=== PATIENT | male | born 1945 | race Caucasian/White ===

== ENCOUNTER 2021-11-26 19:26 | Inpatient (IN) ==
--- NOTE | 2021-11-26 19:56 | Internal Med History&Physical ---
HPI History of Present Illness Patient information: Note initiated : 11/26/21 at 7:49 pm Service Date, if different from initiated Date: [] Patient: Naukl Andrew a 76 y/o M admitted on for Left Septic Knee. Chief Complaint: [] Chief complaint: Septic knee History of present illness: Mr. Andrew is a 76 year old male with a history of atrial fibrillation, CKD IIIb, COPD requiring 3 L/min who presented to the Emergency Department at [facility] for right knee swelling and drainage. The patient had a fall about a month prior to admission after which he developed a bullae on the left knee. The knee recently began to drain purulent fluid. At the ED the patient was felt to have a septic knee. The ED provider discussed the patient with Dr. De La Cruz who felt the patient should have a surgical intervention for what is probably septic arthritis of the patient's left knee. The patient was transferred to [facility] for further evaluation. Upon arrival to [facility] the patient was found to have a open wound over his left knee. Exam was notable for volume overload with bilateral extremity pitting edema, sacral pitting edema. The patient was in no distress upon arrival. He does appear to have some cognitive impairment and admits to having some memory issues due to "too many concussions ". We reviewed CODE STATUS in detail, the patient wishes to be full code. Review of systems Constitutional: no fever, fatigue, or weight loss Eyes: no vision changes or pain Cardiovascular: no chest pain, no palpitations Respiratory: no cough or dyspnea Gastrointestinal: no abdominal pain, no nausea, vomiting, or diarrhea Genitourinary: no dysuria or difficulty voiding Musculoskeletal: Positive for left knee drainage, bilateral lower extremity edema. Integumentary: Positive for left lower extremity redness Neurological: no focal weakness or numbness Psychiatric: no anxiety or depression Physical exam Head: Atraumatic, normal inspection. Eyes: normal appearance, no scleral icterus. Neck: full ROM Respiratory: no respiratory distress. Cardiovascular: normal rate and rhythm, S1, S2. GI/Abdominal: Obesely distended, soft, nontender, no guarding. Extremities: Bilateral lower extremity pitting edema, open wound over left knee, full range of motion, nontender. Neurological: CN II-XII intact, intact motor, intact sensation. Psychiatric: normal mood. Skin: warm, normal color A/P Narrative A/P Narrative: Assessment: 76 year old male with a history of atrial fibrillation, CKD IIIb, COPD requiring 2 L/min transferred from [facility] ED for further evaluation of possible septic arthritis of the left knee. #Possible septic arthritis of left knee #Concern for osteomyelitis of left knee/patella #Volume overload probably due to heart failure #COPD w/ chronic hypoxia (3 L/min) #Atrial fibrillation, not on anticoagulation #CKD IIIb #Type 2 diabetes mellitus, untreated #Macrocytic anemia #Obesity Plan -CBC, CBC, PT/INR, hemoglobin A1c, CRP/ESR, procalcitonin, proBNP, troponin for baseline, EKG, type and screen. -Blood cultures. -Hold off on antibiotics until surgical cultures obtained. -Oxygen supplementation. -Transthoracic echocardiogram -Lasix 40 mg IV BID. -Monitor renal function, electrolytes and volume status. -Urine protein creatinine ratio to evaluate for proteinuria. -Home medication reconciliation, resume essential meds. -Turner catheter. -telemetry monitor. -NPO at midnight. -Orthopedic surgery consult. -PT consult. -DVT ppx: per surgery -Code status: Full -Disposition: TBD Time Spent With Patient Time: Total time spent is greater than 50% in coordination of care (as documented) at patient's floor/unit and/or counseling patient:
[2021-11-26] MEDS ORDERED: ONDANSETRON 4 MG/2 ML VIAL IV PRN (21:39)
[2021-11-26] MEDS ORDERED: 0.9 % SODIUM CHLORIDE 250 ML IV SCH (22:15)
[2021-11-26] MEDS: DOCUSATE SODIUM 100 MG CAPSULE PO SCH (23:53)
[2021-11-26] MEDS: SENNOSIDES 1 TABLET PO SCH (23:53)
[2021-11-26] MEDS: FUROSEMIDE 40 MG/4 ML VIAL IV SCH (23:58)
[2021-11-26] MEDS: 0.9 % SODIUM CHLORIDE 10 ML SYRINGE IV SCH (23:58)
[2021-11-27 00:02] LABS: Hemoglobin 8.9 g/dL (13.7-17.5); Mean Cell Volume 102.9 fL (80.0-100.0); Mean Corpuscular HGB Conc 27.8 g/dL (31.0-36.0); Mean Platelet Volume 11.4 fL (7.4-10.4); Platelet Count 244 K/mcL (140-440); RBC 3.11 M/mcL (4.63-6.08); Red Cell Distribution Width 16.6 % (11.5-14.5); WBC 6.1 K/mcL (4.5-11.0)
[2021-11-27] MEDS ORDERED: FUROSEMIDE 40 MG/4 ML VIAL IV ONE (00:04)
[2021-11-27 00:15] LABS: ALT/SGPT < 5 U/L (<40); AST/SGOT 10 U/L (<40); Albumin 2.9 gm/dL (3.2-5.2); Albumin/Globulin Ratio 0.7 (1.0-2.3); Alkaline Phosphatase 81 U/L (39-117); Bilirubin,Direct 0.3 mg/dL (<0.3); Bilirubin,Total 0.8 mg/dL (0.1-1.0); Blood Urea Nitrogen 31 mg/dL (8-23); Calcium 9.1 mg/dL (8.6-10.4); Carbon Dioxide 22 mmol/L (22-30); Chloride 105 mmol/L (96-108); Globulin 4.4 gm/dL (2.2-3.7); Glomerular Filtration Rate 36; Glucose 94 mg/dL (70-105); Lactate Dehydrogenase 201 U/L (135-225); Phosphorous 3.4 mg/dL (2.5-4.5); Triglycerides 77 mg/dL (<150); Uric Acid 9.8 mg/dL (2.5-8.0)
[2021-11-27 00:23] LABS: Hemoglobin A1C 4.8 % Hgb (4.0-6.0)
[2021-11-27] MEDS: ACETAMINOPHEN 325 MG TABLET PO PRN (00:27)
[2021-11-27 00:32] LABS: Anisocytosis 1+ (None Seen); Eosinophils % (Manual) 2 % (0-7); Lymphocytes % 10 % (15-49); Macrocytosis 1+ (None Seen); Monocytes % (Manual) 13 % (1-12); Platelet Estimate NORMAL (Normal); RBC Morphology ABNORMAL (Normal); Segmented Neutrophils % 75 % (38-78)
[2021-11-27] MEDS ORDERED: ACETAMINOPHEN 325 MG TABLET PO ONE (00:33)
[2021-11-27 00:34] LABS: INR 1.2 (0.9-1.1); Prothrombin Time 15.3 sec (11.9-14.5)
[2021-11-27 00:34] LABS: Creatinine, Spot Urine 117.6 mg/dL (39.0-259.0); Pro:Crea Ratio 1.57 (<0.20)
[2021-11-27 00:41] LABS: C-Reactive Protein 0.7 mg/dL (0.03-0.80)
[2021-11-27] MEDS: 0.9 % SODIUM CHLORIDE 10 ML SYRINGE IV SCH ×3 (05:50→20:55)
[2021-11-27 06:39] LABS: Basophils # (Auto) 0.02 K/mcL (0.00-0.30); Basophils % (Auto) 0.3 % (0.0-2.0); Eosinophils # (Auto) 0.21 K/mcL (0.00-0.70); Eosinophils % (Auto) 3.4 % (0.0-7.0); Hematocrit 31.9 % (40.1-51.0); Hemoglobin 9.1 g/dL (13.7-17.5); Lymphocytes # (Auto) 0.35 K/mcL (1.50-4.80); Lymphocytes % (Auto) 5.7 % (15.5-49.0); Mean Cell Volume 101.9 fL (80.0-100.0); Mean Corpuscular HGB Conc 28.5 g/dL (31.0-36.0); Mean Platelet Volume 11.4 fL (7.4-10.4); Monocytes # (Auto) 0.75 K/mcL (0.10-0.90); Monocytes % (Auto) 12.3 % (1.0-12.0); Neutrophils % (Auto) 78.3 % (38.0-78.0); Platelet Count 229 K/mcL (140-440); RBC 3.13 M/mcL (4.63-6.08); Red Cell Distribution Width 16.6 % (11.5-14.5); WBC 6.1 K/mcL (4.5-11.0)
--- NOTE | 2021-11-27 06:55 | Orthopedic History & Physical ---
HPI History of Present Illness Patient information: Note initiated : 11/27/21 at 6:53 am Service Date, if different from initiated Date: [] Patient: Nakul Andrew a 76 y/o M admitted on 11/26/21 for Left Septic Knee. Chief Complaint: [left knee pain, infected open wound ] History of present illness: Mr. Andrew is a 76 year old male with a history of atrial fibrillation, CKD IIIb, COPD requiring 3 L/min who presented to the Emergency Department at [facility] for right knee swelling and drainage. The patient had a fall about a month prior to admission after which he developed a bullae on the left knee. The knee recently began to drain purulent fluid. At the ED the patient was felt to have a septic knee. The ED provider discussed the patient with Dr. De La Cruz who felt the patient should have a surgical intervention for what is probably septic arthritis of the patient's left knee. The patient was transferred to [facility] for further evaluation. Upon arrival to [facility] the patient was found to have a open wound over his left knee. Exam was notable for volume overload with bilateral extremity pitting edema, sacral pitting edema. The patient was in no distress upon arrival. He does appear to have some cognitive impairment and admits to having some memory issues due to "too many concussions ". We reviewed CODE STATUS in detail, the patient wishes to be full code. Review of systems Constitutional: no fever, fatigue, or weight loss Eyes: no vision changes or pain Cardiovascular: no chest pain, no palpitations Respiratory: no cough or dyspnea Gastrointestinal: no abdominal pain, no nausea, vomiting, or diarrhea Genitourinary: no dysuria or difficulty voiding Musculoskeletal: Positive for left knee drainage, bilateral lower extremity edema. Integumentary: Positive for left lower extremity redness Neurological: no focal weakness or numbness Psychiatric: no anxiety or depression Physical exam General: alert, oriented x3 cooperative answer questions appropriately. Head: Atraumatic, normal inspection. Eyes: normal appearance, no scleral icterus. Neck: full ROM non-tender Respiratory: no respiratory distress. Cardiovascular: normal rate and rhythm, S1, S2. GI/Abdominal: Obesely distended, soft, nontender, no guarding. Extremities: Bilateral lower extremity pitting edema, open wound at infrapatellar area with malodorous dark drainage, tender to palpation and with any ROM, extension mech intact. Neurological: CN II-XII intact, intact motor, intact sensation. Psychiatric: normal mood. Skin: warm, normal color Review of Systems All systems: reviewed and no additional remarkable complaints except as stated MEDS/ALLERGIES Home Medications and Allergies Home Medications Medication Instructions Recorded Confirmed Type albuterol sulfate 90 mcg/actuation 2 puff INHALATION QID PRN 11/27/21 11/27/21 History aerosol inhaler (ProAir HFA) aspirin 81 mg tablet,delayed 81 mg PO QDAY 11/27/21 11/27/21 History release colchicine 0.6 mg tablet 0.6 mg PO QID PRN 11/27/21 11/27/21 History tamsulosin 0.4 mg capsule (Flomax) 0.4 mg PO QDAY 11/27/21 11/27/21 History torsemide 10 mg tablet 10 mg PO QDAY 11/27/21 11/27/21 History Allergies Allergy/AdvReac Type Severity Reaction Status Date / Time bee venom protein (honey bee) Allergy Severe Anaphylaxis Verified 11/26/21 22:25 tramadol AdvReac Mild Vomiting Verified 11/27/21 07:04 [place] AdvReac Verified 11/27/21 07:03 Physical Examination Narrative Narrative: Narrative: Results Labs Result Diagrams: 11/27/21 05:31 11/26/21 22:15 Labs: Abnormal lab results 11/26/21 11/26/21 11/26/21 Range/Units 21:05 22:05 22:05 RBC (4.63-6.08) M/mcL Hgb (13.7-17.5) g/dL Hct (40.1-51.0) % MCV (80.0-100.0) fL MCHC (31.0-36.0) g/dL RDW (11.5-14.5) % MPV (7.4-10.4) fL Neut % (Auto) (38.0-78.0) % Lymph % (Auto) (15.5-49.0) % [place] % (Auto) (1.0-12.0) % Lymph # (Auto) (1.50-4.80) K/mcL Lymphocytes % (15-49) % Monocytes % (Manual) (1-12) % RBC Morphology (Normal) Anisocytosis (None Seen) Macrocytosis (None Seen) ESR 55 H (0-20) mm/hr PT (11.9-14.5) sec INR (0.9-1.1) BUN (8-23) mg/dL Creatinine (0.7-1.2) mg/dL Uric Acid (2.5-8.0) mg/dL Direct Bilirubin (<0.3) mg/dL NT-Pro-B Natriuret Pep 3882.0 H (<450.0) pg/mL Albumin (3.2-5.2) gm/dL Globulin (2.2-3.7) gm/dL Albumin/Globulin Ratio (1.0-2.3) Procalcitonin 0.15 H (<0.10) ng/mL U [place] Prot/Creat Ratio (<0.20) 11/26/21 11/26/21 11/26/21 Range/Units 22:15 22:15 22:15 RBC 3.11 L (4.63-6.08) M/mcL Hgb 8.9 L (13.7-17.5) g/dL Hct 32.0 L (40.1-51.0) % MCV 102.9 H (80.0-100.0) fL MCHC 27.8 L (31.0-36.0) g/dL RDW 16.6 H (11.5-14.5) % MPV 11.4 H (7.4-10.4) fL Neut % (Auto) (38.0-78.0) % Lymph % (Auto) (15.5-49.0) % [place] % (Auto) (1.0-12.0) % Lymph # (Auto) (1.50-4.80) K/mcL Lymphocytes % 10 L (15-49) % Monocytes % (Manual) 13 H (1-12) % RBC Morphology Abnormal A (Normal) Anisocytosis 1+ A (None Seen) Macrocytosis 1+ A (None Seen) ESR (0-20) mm/hr PT 15.3 H (11.9-14.5) sec INR 1.2 H (0.9-1.1) BUN 31 H (8-23) mg/dL Creatinine 1.8 H (0.7-1.2) mg/dL Uric Acid 9.8 H (2.5-8.0) mg/dL Direct Bilirubin 0.3 H (<0.3) mg/dL NT-Pro-B Natriuret Pep (<450.0) pg/mL Albumin 2.9 L (3.2-5.2) gm/dL Globulin 4.4 H (2.2-3.7) gm/dL Albumin/Globulin Ratio 0.7 L (1.0-2.3) Procalcitonin (<0.10) ng/mL U [place] Prot/Creat Ratio (<0.20) 11/26/21 11/27/21 Range/Units 23:00 05:31 RBC 3.13 L (4.63-6.08) M/mcL Hgb 9.1 L (13.7-17.5) g/dL Hct 31.9 L (40.1-51.0) % MCV 101.9 H (80.0-100.0) fL MCHC 28.5 L (31.0-36.0) g/dL RDW 16.6 H (11.5-14.5) % MPV 11.4 H (7.4-10.4) fL Neut % (Auto) 78.3 H (38.0-78.0) % Lymph % (Auto) 5.7 L (15.5-49.0) % [facility] % (Auto) 12.3 H (1.0-12.0) % Lymph # (Auto) 0.35 L (1.50-4.80) K/mcL Lymphocytes % (15-49) % Monocytes % (Manual) (1-12) % RBC Morphology (Normal) Anisocytosis (None Seen) Macrocytosis (None Seen) ESR (0-20) mm/hr PT (11.9-14.5) sec INR (0.9-1.1) BUN (8-23) mg/dL Creatinine (0.7-1.2) mg/dL Uric Acid (2.5-8.0) mg/dL Direct Bilirubin (<0.3) mg/dL NT-Pro-B Natriuret Pep (<450.0) pg/mL Albumin (3.2-5.2) gm/dL Globulin (2.2-3.7) gm/dL Albumin/Globulin Ratio (1.0-2.3) Procalcitonin (<0.10) ng/mL U [place] Prot/Creat Ratio 1.57 H (<0.20) H & H 11/26/21 11/27/21 Range/Units 22:15 05:31 Hgb 8.9 L 9.1 L (13.7-17.5) g/dL Hct 32.0 L 31.9 L (40.1-51.0) % Coagulation 11/26/21 Range/Units 22:15 INR 1.2 H (0.9-1.1) All other labs normal. A/P Narrative A/P Narrative: Assessment: 76 YO male with several comorbidities including COPD, CHF, CKD and with septic wound at the left knee which exhibits purulent drainage. Plan: options were presented to the patient including non-operative and surgical option. non-operative constituting watchful waiting and further antibiotic treatment carries the risks of overwhelming sepsis and . Surgical option of open surgical I+D of left knee infected wound with subsequent wound vac placement was also discussed. This is to take place semi emergently with Dr. De La Cruz surgeon and Javier NICHOLAS. At this time patient is interested in surgery. We will also order a STAT MRI of the lower extremity to eval for osteomyelitis of the left femur and tibia about the wound area as there is concern for bone and joint involvement. Plan is for: open surgical I+D of left knee infected wound with subsequent wound vac placement. Surgical risks were explained to the patient including but not limited to: pian , bleeding, infection, injury to adjacent structures, need for further surgery, stroke risk, cardiac complication including MN, pulmonary complications including embolism or pneumonia, anesthesia reactions and . Patient understands these risks and wishes to proceed with surgery. Time Spent With Patient Time: Total time spent is greater than 50% in coordination of care (as documented) at patient's floor/unit and/or counseling patient:
[2021-11-27] MEDS ORDERED: SCOPOLAMINE 1 PATCH PATCH TOPICAL PRN (07:04)
[2021-11-27] MEDS ORDERED: IPRATROPIUM/ALBUTEROL 3 ML AMPUL.NEB NEB PRN ×2 (07:04→13:55)
[2021-11-27 07:09] LABS: ALT/SGPT < 5 U/L (<40); AST/SGOT 12 U/L (<40); Albumin 2.9 gm/dL (3.2-5.2); Albumin/Globulin Ratio 0.7 (1.0-2.3); Alkaline Phosphatase 82 U/L (39-117); Bilirubin,Direct 0.3 mg/dL (<0.3); Bilirubin,Total 0.9 mg/dL (0.1-1.0); Blood Urea Nitrogen 30 mg/dL (8-23); Calcium 9.1 mg/dL (8.6-10.4); Carbon Dioxide 22 mmol/L (22-30); Chloride 107 mmol/L (96-108); Globulin 4.4 gm/dL (2.2-3.7); Glomerular Filtration Rate 36; Glucose 96 mg/dL (70-105); Lactate Dehydrogenase 234 U/L (135-225); Phosphorous 3.8 mg/dL (2.5-4.5); Triglycerides 92 mg/dL (<150); Uric Acid 9.8 mg/dL (2.5-8.0)
[2021-11-27] MEDS: FUROSEMIDE 40 MG/4 ML VIAL IV SCH ×2 (07:43→16:15)
--- NOTE | 2021-11-27 09:27 | XRay Report ---
CLINICAL INFORMATION: Infection COMPARISON: None. FINDINGS: Moderate degeneration in the patellofemoral and lateral tibiofemoral joint appreciated. Small suprapatellar effusion noted. No evidence of osteomyelitis or other focal osseous abnormality. Marked diffuse soft tissue swelling noted. IMPRESSION: Moderate effusion and also marked periarticular soft tissue swelling. This could indicate cellulitis and possibly septic arthritis Interpreted and Authenticated by: Georgi Kumari 11/27/21
--- NOTE | 2021-11-27 09:57 | Magnetic Resonance Report ---
CLINICAL INFORMATION: Knee pain and swelling evaluate for infection. COMPARISON: None. TECHNIQUE: Sagittal T1, sagittal and coronal proton density, sagittal and coronal T2 and axial proton density images were acquired. FINDINGS: Moderate patellofemoral and small tibiofemoral effusions appreciated. The medial meniscus is diminutive with irregular signal compatible with macerated chronic tear. It is displaced 5 mm: It bows and partially tears the deep MCL fibers. Loss of medial meniscus support has accelerated medial tibial femoral degeneration. The lateral meniscus is normal in size and signal. Anterior/ posterior cruciate ligament, lateral collateral ligament and extensor mechanism are all normal. A 3 cm region of increased signal in the anterior central tibial epiphysis most likely represents noninfectious edema. Evolving osteomyelitis is possible but less likely.. The marrow signal is otherwise normal. There are massive subcutaneous fluid collections in the periarticular regions of the knee. The largest is located medially: 3 x 14 cm. It communicates with a smaller 5 cm collection in the anterior pretibial region which also communicates with a 8 cm collection in the lateral region. Muscle fascial planes are normal. IMPRESSION: 1. Moderate patellofemoral and mild tibiofemoral effusion. This could potentially indicate septic arthritis. 2. 3 cm region of increased intramedullary signal in the anterior central tibial epiphysis. This is most likely noninfectious edema but developing osteomyelitis cannot be excluded. 3. Massive subcutaneous fluid collections in the periarticular region of the knee-most prominent medially. These could be infected. 4. Moderate medial tibiofemoral degeneration with a macerated chronic medial meniscal tear which has displaced and bows the deep MCL fibers. Interpreted and Authenticated by: Georgi Kumari 11/27/21
[2021-11-27] MEDS: DOCUSATE SODIUM 100 MG CAPSULE PO SCH ×2 (11:52→20:55)
[2021-11-27] MEDS ORDERED: fentaNYL 250 MCG/5 ML VIAL IV ONE (13:30)
[2021-11-27] MEDS ORDERED: PIPERACILLIN SODIUM/TAZOBACTAM 3.375 GM in DEXTROSE 5% IN WATER 50 ML IV SCH (13:30)
[2021-11-27] MEDS ORDERED: ONDANSETRON 4 MG/2 ML VIAL ONE (13:30)
[2021-11-27] MEDS ORDERED: LIDOCAINE HCL/PF 100 MG/5 ML SYRINGE IV ONE (13:30)
[2021-11-27] MEDS ORDERED: VANCOMYCIN 1,000 MG in 0.9 % SODIUM CHLORIDE 250 ML IV SCH (13:30)
[2021-11-27] MEDS ORDERED: DEXAMETHASONE 10 MG/ML VIAL ONE (13:30)
[2021-11-27] MEDS ORDERED: PROPOFOL 200 MG/20 ML VIAL IV ONE (13:30)
[2021-11-27] MEDS ORDERED: ACETAMINOPHEN 1,000 MG/100 ML BAG IV ONE (13:55)
[2021-11-27] MEDS ORDERED: diphenhydrAMINE 50 MG/ML VIAL IV PRN (13:55)
[2021-11-27] MEDS ORDERED: PROMETHAZINE 25 MG/ML VIAL IV PRN (13:55)
[2021-11-27] MEDS ORDERED: NALOXONE HCL 0.4 MG/ML VIAL IV PRN (13:55)
[2021-11-27] MEDS ORDERED: LACTATED RINGERS 250 ML IV PRN (13:55)
[2021-11-27] MEDS ORDERED: MEPERIDINE 25 MG/ML VIAL IV PRN (13:55)
[2021-11-27] MEDS ORDERED: ONDANSETRON 4 MG/2 ML VIAL IV PRN (13:55)
[2021-11-27] MEDS ORDERED: LACTATED RINGERS 1,000 ML IV SCH (14:00)
[2021-11-27] MEDS ORDERED: GENTAMICIN SULFATE 800 MG/20 ML VIAL IR ONE ×2 (14:09→14:30)
[2021-11-27] MEDS ORDERED: VANCOMYCIN 1 GM VIAL TOPICAL SCH (14:30)
[2021-11-27] MEDS ORDERED: VANCOMYCIN 1 GM VIAL TOPICAL ONE (14:30)
--- NOTE | 2021-11-27 14:42 | General Surgery Procedure Note ---
Date of procedure: Note initiated : 11/27/21 at 2:38 pm Service Date, if different from initiated Date: [] Pre-op diagnosis: left knee skin necrosis subcutaneous abscess and deep knee infection Post-op diagnosis: same Procedure: left knee irrigation and debridement, superficial and arthrotomy with irrigation and debridement, placement of wound vac Findings: skin necrosis, infected abscess, probable deep intraarticular infection Anesthesia: GETA Surgeon: Georgi De La Cruz Manager Package: Mikey Guzman Estimated blood loss: 250 Pathology: other (culture sq and joint) Condition: stable Disposition: PACU
--- NOTE | 2021-11-27 14:43 | Discharge Plan ---
DC Instructions-General Patient Instructions Dressing Care: May shower in 2 days Discharge Plan Patient/Caregiver Discharge Instructions Activity: as instructed Diet: Regular Diet Prescriptions: No Action aspirin [Adult Aspirin EC Low Strength] 81 mg Tablet,Delayed Release (Dr/Ec) 81 mg PO QDAY 0RF albuterol sulfate [ProAir HFA] 90 mcg/actuation Hfa Aerosol Inhaler 2 puff INHALATION QID PRN (Reason: Shortness Of Breath) 0RF tamsulosin [Flomax] 0.4 mg Capsule 0.4 mg PO QDAY 0RF torsemide 10 mg Tablet 10 mg PO QDAY 0RF colchicine 0.6 mg Tablet 0.6 mg PO QID PRN (Reason: Pain, Moderate) 0RF Follow Up Plan Follow up with: Georgi De La Cruz MD [Physician] - Patient Disposition: Home, Self-Care Rehab Potential: Good I certify that the patient requires SNF services: No Overall status at discharge: patient is progressing back to baseline Discharge Orders: Discharge Order (Routine); Ordered 11/28/21 Ordered By: Georgi De La Cruz Discharge Comment: cc: left knee infection
[2021-11-27] MEDS ORDERED: VANCOMYCIN PER PHARMACY IV SCH (14:44)
[2021-11-27] MEDS: fentaNYL 100 MCG/2 ML VIAL IV PRN ×2 (15:00→15:03)
--- NOTE | 2021-11-27 15:17 | Operative Note ---
DATE OF OPERATION: 11/27/2021 PREOPERATIVE DIAGNOSES: 1. Left knee skin necrosis with a large subcutaneous abscess. 2. Left knee probable deep infection in the joint. POSTOPERATIVE DIAGNOSES: 1. Left knee skin necrosis with a large subcutaneous abscess,. 2. Left knee probable deep infection in the joint. PROCEDURE PERFORMED: 1. Left knee irrigation and debridement of skin and subcutaneous tissue, deep abscess with placement of wound VAC. 2. Left knee aspiration. 3. Left knee arthrotomy with irrigation and debridement. SURGEON: Tiffani De La Cruz M.D. SENIOR DATABASE ENGINEER SURGEON: Javier Guzman PA-C. This providers expertise and technical skill were required throughout the case. The CRISTOPHER assisted with preoperative coordination, intraoperative retraction, wound closure, and dressing and splint application, as well as postoperative documentation and care coordination. ANESTHESIA: General. INTRAOPERATIVE FINDINGS: 1. Large area of skin necrosis approximately 3 x 4 cm with several other smaller areas of skin necrosis along the anterior medial knee 2. No direct opening into the knee joint, but after aspiration fluid looks cloudy, possible septic joint. 3. A large consolidated hematoma in the subcutaneous tissue with a foul smell. INDICATIONS: The patient is a 76-year-old male who fell several weeks ago sustaining a skin blister, which ulcerated and has progressively worsened to the above condition. We talked about different options and elected to proceed with surgical intervention. The risks and benefits were discussed with the patient in detail including, but not limited to, the risks of anesthesia, problems with the heart or lungs related to anesthesia, infection, compromise or injury to the nerves and blood vessels, deep venous thrombosis, pulmonary embolism, pneumonia, continued pain after surgery, worsening pain or symptoms after surgery, swelling, loss of motion, re-tear or failure of repair site, and need for repeat surgery. DESCRIPTION OF PROCEDURE: The patient was seen preoperatively, site was signed and questions were answered. He was then transferred from the operating room and general anesthesia was administered without complication. A tourniquet was placed on the left upper thigh, but was not inflated. He was prepped and draped in the usual fashion from the toes up to the tourniquet. The largest area of ulceration is about 3 x 4 cm in the superior medial knee. There was skin around it and I excised this as well as two smaller areas more proximal. There was a huge area of consolidated hematoma in the subcutaneous layer, which was removed. I used a curette to curette out all of the necrotic tissue throughout. This extended superiorly and medially. We came down and removed all of the necrotic tissue. I did not feel that it penetrated into the joint, but from the superolateral portal I did aspirate fluid, sent this to the lab for culture. Since it was cloudy, I did make an arthrotomy on the lateral side where there was no area of erythema and we opened the knee. We irrigated with 6 liters of saline under jet lavage, also placed IrriSept and some Vancomycin powder. This was closed with Stratafix, 2-0 Monocryl and isabel. Along the medial side, we again irrigated with 9 liters of antibiotic saline under jet lavage as well as IrriSept. I then placed vancomycin powder and placed a wound VAC in a standard condition. We placed four strips of sponge in this wound. He was then extubated and taken to PACU in stable condition. SPECIMENS: None. COMPLICATIONS: None. DRAINS: None. DISPOSITION: To PACU in stable condition. ELA:[email or web address] Job ID: [id number] Doc ID: [id number] Tiffani De La Cruz MD
--- NOTE | 2021-11-27 17:49 | Internal Med Progress Note ---
SUBJECTIVE Subjective Patient information: Note initiated : 11/27/21 at 5:43 pm Service Date, if different from initiated Date: [] Patient: Nakul Andrew a 76 y/o M admitted on 11/26/21 for Left Septic Knee. Chief Complaint: [] Interval history: Mr. Andrew is a 76 year old male with a history of atrial fibrillation, CKD IIIb, COPD requiring 3 L/min who presented to the Emergency Department at for right knee swelling and drainage. The patient had a fall about a month prior to admission after which he developed a bullae on the left knee. The knee recently began to drain purulent fluid. At the ED the patient was felt to have a septic knee. The ED provider discussed the patient with Dr. De La Cruz who felt the patient should have a surgical intervention for what is probably septic arthritis of the patient's left knee. The patient was transferred to [facility] for further evaluation. Upon arrival to [facility] the patient was found to have a open wound over his left knee. Exam was notable for volume overload with bilateral extremity pitting edema, sacral pitting edema. The patient was in no distress upon arrival. He does appear to have some cognitive impairment and admits to having some memory issues due to "too many concussions ". We reviewed CODE STATUS in detail, the patient wishes to be full code. 11/27 Underwent surgery today, noted to have left knee skin necrosis with a large subcutaneous abscess and probable deep infection of the left knee joint, the left knee was irrigated and debrided, surgical cultures obtained then the patient was started on broad-spectrum antibiotics. Renal function stable, diuresing with Lasix 40 mg IV twice daily. Discussed anticoagulation for atrial fibrillation, the patient will consider the risks versus benefits of anticoagulation. Physical exam Head: Atraumatic, normal inspection. Eyes: normal appearance, no scleral icterus. Neck: full ROM Respiratory: no respiratory distress. Cardiovascular: normal rate and rhythm, S1, S2. GI/Abdominal: Obesely distended, soft, nontender, no guarding. Extremities: Bilateral lower extremity pitting edema, open wound over left knee, full range of motion, nontender. Neurological: CN II-XII intact, intact motor, intact sensation. Psychiatric: normal mood. Skin: warm, normal color Constitutional Vitals: Vital Signs Temp Pulse Resp BP Pulse Ox 97.7 F 81 16 135/70 98 11/27/21 15:20 11/27/21 16:52 11/27/21 15:20 11/27/21 16:52 11/27/21 16:52 Period Temp Pulse Resp BP Sys/Murphy Pulse Ox Last 24 Hr 97.1 F-98.4 F 77-110 14-27 114-149/57-91 91-100 Intake and Output 11/27/21 11/27/21 11/27/21 05:59 13:59 21:59 Intake Total 600 1200 Output Total 950 2150 500 Balance -350 -2150 700 Weight 131.134 kg Patient Weight 11/28/21 05:59 Weight 131.134 kg Intake & Output: Intake & Output 11/27/21 11/27/21 11/27/21 05:59 13:59 21:59 Intake Total 600 1200 Output Total 950 2150 500 Balance -350 -2150 700 Weight 131.134 kg Intake: IV 400 Zosyn 3.375 gm In Dextrose 5% 50 in Water 50 ml @ 100 mls/hr IV Q6H [facility] Rx#:[id number] Vancomycin 1,000 mg In Sodium 250 Chloride 0.9% 250 ml @ 250 mls/ hr IV PREOP [facility] Rx#:[id number] Oral 600 IV - Manual Only 800 Output: Urine Catheter Amount 950 2150 500 Other: Meal Nourishment/Supplement Percent of Meal Consumed 100% Feeding Ability Independent Urine Appearance Clear Clear Clear Uretheral (Turner) Clear Clear Urine Color Straw Pale Bright Yellow Uretheral (Turner) Bright Yellow Urine Odor Normal Stool Size Large Stool Color Brown Stool Consistency Soft # Bowel Movements 1 OBJ DATA Labs CBC & Chem 7: 11/27/21 05:31 11/27/21 05:31 Labs: Abnormal Lab Results 11/27/21 11/27/21 11/26/21 05:31 05:31 23:00 RBC 3.13 L Hgb 9.1 L Hct 31.9 L MCV 101.9 H MCHC 28.5 L RDW 16.6 H MPV 11.4 H Neut % (Auto) 78.3 H Lymph % (Auto) 5.7 L [place] % (Auto) 12.3 H Lymph # (Auto) 0.35 L Lymphocytes % Monocytes % (Manual) RBC Morphology Anisocytosis Macrocytosis ESR PT INR BUN 30 H Creatinine 1.8 H Uric Acid 9.8 H Direct Bilirubin 0.3 H Lactate Dehydrogenase 234 H NT-Pro-B Natriuret Pep Albumin 2.9 L Globulin 4.4 H Albumin/Globulin Ratio 0.7 L Procalcitonin U [place] Prot/Creat Ratio 1.57 H 11/26/21 11/26/21 11/26/21 22:15 22:15 22:15 RBC 3.11 L Hgb 8.9 L Hct 32.0 L MCV 102.9 H MCHC 27.8 L RDW 16.6 H MPV 11.4 H Neut % (Auto) Lymph % (Auto) [place] % (Auto) Lymph # (Auto) Lymphocytes % 10 L Monocytes % (Manual) 13 H RBC Morphology Abnormal A Anisocytosis 1+ A Macrocytosis 1+ A ESR PT 15.3 H INR 1.2 H BUN 31 H Creatinine 1.8 H Uric Acid 9.8 H Direct Bilirubin 0.3 H Lactate Dehydrogenase NT-Pro-B Natriuret Pep Albumin 2.9 L Globulin 4.4 H Albumin/Globulin Ratio 0.7 L Procalcitonin U [place] Prot/Creat Ratio 11/26/21 11/26/21 11/26/21 22:05 22:05 21:05 RBC Hgb Hct MCV MCHC RDW MPV Neut % (Auto) Lymph % (Auto) [place] % (Auto) Lymph # (Auto) Lymphocytes % Monocytes % (Manual) RBC Morphology Anisocytosis Macrocytosis ESR 55 H PT INR BUN Creatinine Uric Acid Direct Bilirubin Lactate Dehydrogenase NT-Pro-B Natriuret Pep 3882.0 H Albumin Globulin Albumin/Globulin Ratio Procalcitonin 0.15 H U [place] Prot/Creat Ratio Meds: Medications Acetaminophen (Acetaminophen 325 Mg Tablet) 650 mg PO Q6HP PRN; Protocol PRN Reason: Per Pain Protocol/Fever > 101 Last Admin: 11/27/21 00:27 Dose: 650 mg Documented by: Hydrocodone Bitart/Acetaminophen (Hydrocodone/Apap 5/325mg Tablet) 1 tab PO Q4HP PRN; Protocol PRN Reason: Per Pain Protocol Docusate Sodium (Docusate Sodium 100 Mg Capsule) 100 mg PO BID [facility] Last Admin: 11/27/21 11:52 Dose: Not Given Documented by: Furosemide (Furosemide 40 Mg/4 Ml Vial) 40 mg IV BIDD [facility] Last Admin: 03/11/22 16:15 Dose: 40 mg Documented by: Vancomycin HCl 500 mg/ Sodium (Chloride) 100 mls @ 100 mls/hr IV ONCE ONE Stop: 11/27/21 21:59 Vancomycin HCl 1,500 mg/ (Sodium Chloride) 500 mls @ 333.3 mls/hr IV Q12H [facility] Piperacillin Sod/Tazobactam (Sod 3.375 gm/ Dextrose) 50 mls @ 100 mls/hr IV Q8H [facility]; Protocol Ondansetron HCl (Ondansetron 4 Mg/2 Ml Vial) 4 mg IV Q6HP PRN PRN Reason: Nausea And Vomiting Senna (Sennosides 1 Tablet) 2 tab PO HS [facility] Last Admin: 11/26/21 23:53 Dose: Not Given Documented by: Sodium Chloride (0.9 % Sodium Chloride 10 Ml Syringe) 10 ml IV Q8 [facility] Last Admin: 11/27/21 16:07 Dose: Not Given Documented by: Vancomycin HCl (Vancomycin Per Pharmacy) 1 order IV UD [facility]; Protocol A/P Narrative A/P Narrative: Assessment: 76 year old male with a history of atrial fibrillation, CKD IIIb, COPD requiring 2 L/min transferred from ED for further evaluation of possible septic arthritis of the left knee. #Possible septic arthritis of left knee #Large hematoma in left knee area status post I&D #Volume overload secondary to HFpEF #Pulmonary hypertension #COPD w/ chronic hypoxia (3 L/min) #Atrial fibrillation, not on anticoagulation #CKD IIIb #Proteinuria #Macrocytic anemia #Turner catheter #Obesity Plan -Vancomycin and Zosyn per surgery. -Follow surgical and blood cultures. -Oxygen supplementation. -Lasix 40 mg IV BID. -Monitor renal function, electrolytes and volume status. -Analgesics. -Resume home aspirin, Flomax, holding home torsemide for now. -cardiac monitor technician. -Orthopedic surgery following. -PT consult. -Low-sodium diet -Wound VAC management. -Remove Turner catheter after diuresis. -DVT ppx: per surgery -Code status: Full -Disposition: Probably SNF for rehab, wound care, IV antibiotics. Time Spent With Patient Time: Total time spent is greater than 50% in coordination of care (as documented) at patient's floor/unit and/or counseling patient: QUALITY VTE Deep Vein Thrombosis/Pulmonary Embolism Present on Admission: No
[2021-11-27] MEDS ORDERED: ALBUTEROL SULFATE 200 PUFF INHALER INH PRN (17:51)
[2021-11-27] MEDS: HYDROcodone/APAP 5/325MG TABLET PO PRN (19:46)
[2021-11-27] MEDS: SENNOSIDES 1 TABLET PO SCH (20:55)
[2021-11-27] MEDS ORDERED: VANCOMYCIN 500 MG in 0.9 % SODIUM CHLORIDE 100 ML IV ONE (21:00)
[2021-11-27] MEDS: PIPERACILLIN SODIUM/TAZOBACTAM 3.375 GM in DEXTROSE 5% IN WATER 50 ML IV SCH (22:28)
[2021-11-28] MEDS: 0.9 % SODIUM CHLORIDE 10 ML SYRINGE IV SCH ×3 (05:53→20:25)
[2021-11-28] MEDS: PIPERACILLIN SODIUM/TAZOBACTAM 3.375 GM in DEXTROSE 5% IN WATER 50 ML IV SCH (05:53)
[2021-11-28 07:04] LABS: Basophils # (Auto) 0.01 K/mcL (0.00-0.30); Basophils % (Auto) 0.1 % (0.0-2.0); Eosinophils # (Auto) 0 K/mcL (0.00-0.70); Eosinophils % (Auto) 0 % (0.0-7.0); Hemoglobin 7.5 g/dL (13.7-17.5); Lymphocytes # (Auto) 0.23 K/mcL (1.50-4.80); Lymphocytes % (Auto) 2.4 % (15.5-49.0); Mean Cell Volume 102.3 fL (80.0-100.0); Mean Corpuscular HGB Conc 27.8 g/dL (31.0-36.0); Mean Platelet Volume 11.4 fL (7.4-10.4); Monocytes # (Auto) 0.63 K/mcL (0.10-0.90); Monocytes % (Auto) 6.6 % (1.0-12.0); Neutrophils % (Auto) 90.9 % (38.0-78.0); Platelet Count 220 K/mcL (140-440); RBC 2.64 M/mcL (4.63-6.08); Red Cell Distribution Width 16.3 % (11.5-14.5); WBC 9.5 K/mcL (4.5-11.0)
[2021-11-28 07:30] LABS: ALT/SGPT < 5 U/L (<40); AST/SGOT 8 U/L (<40); Albumin 2.5 gm/dL (3.2-5.2); Albumin/Globulin Ratio 0.6 (1.0-2.3); Alkaline Phosphatase 65 U/L (39-117); Bilirubin,Direct 0.2 mg/dL (<0.3); Bilirubin,Total 0.5 mg/dL (0.1-1.0); Blood Urea Nitrogen 36 mg/dL (8-23); Calcium 8.6 mg/dL (8.6-10.4); Carbon Dioxide 22 mmol/L (22-30); Chloride 102 mmol/L (96-108); Globulin 3.9 gm/dL (2.2-3.7); Glomerular Filtration Rate 33; Glucose 166 mg/dL (70-105); Lactate Dehydrogenase 182 U/L (135-225); Triglycerides 60 mg/dL (<150); Uric Acid 10.3 mg/dL (2.5-8.0)
[2021-11-28] MEDS: TAMSULOSIN 0.4 MG CAPSULE PO SCH (08:02)
[2021-11-28] MEDS: ASPIRIN 81 MG TAB.CHEW PO SCH (08:02)
[2021-11-28] MEDS: DOCUSATE SODIUM 100 MG CAPSULE PO SCH ×2 (08:02→20:25)
[2021-11-28] MEDS: FUROSEMIDE 40 MG/4 ML VIAL IV SCH ×3 (08:02→20:24)
[2021-11-28] MEDS: VANCOMYCIN 1,500 MG in 0.9 % SODIUM CHLORIDE 500 ML IV SCH ×2 (08:54→20:25)
[2021-11-28] MEDS: CEFEPIME 2 GM VIAL IV SCH ×2 (09:29→20:24)
[2021-11-28] MEDS: metroNIDAZOLE 500 MG in PREMIX 1 BAG IV SCH ×3 (11:18→22:31)
[2021-11-28] MEDS: HYDROcodone/APAP 5/325MG TABLET PO PRN ×3 (11:25→21:55)
[2021-11-28] MEDS: ACETAMINOPHEN 325 MG TABLET PO PRN (13:20)
--- NOTE | 2021-11-28 14:58 | Internal Med Progress Note ---
SUBJECTIVE Subjective Patient information: Note initiated : 11/28/21 at 2:56 pm Service Date, if different from initiated Date: [] Patient: Nakul Andrew a 76 y/o M admitted on 11/26/21 for Left Septic Knee. Chief Complaint: [] Interval history: Mr. Andrew is a 76 year old male with a history of atrial fibrillation, CKD IIIb, COPD requiring 3 L/min who presented to the Emergency Department at [facility] for right knee swelling and drainage. The patient had a fall about a month prior to admission after which he developed a bullae on the left knee. The knee recently began to drain purulent fluid. At the ED the patient was felt to have a septic knee. The ED provider discussed the patient with Dr. De La Cruz who felt the patient should have a surgical intervention for what is probably septic arthritis of the patient's left knee. The patient was transferred to [facility] for further evaluation. Upon arrival to [facility] the patient was found to have a open wound over his left knee. Exam was notable for volume overload with bilateral extremity pitting edema, sacral pitting edema. The patient was in no distress upon arrival. He does appear to have some cognitive impairment and admits to having some memory issues due to "too many concussions ". We reviewed CODE STATUS in detail, the patient wishes to be full code. 11/27 Underwent surgery today, noted to have left knee skin necrosis with a large subcutaneous abscess and probable deep infection of the left knee joint, the left knee was irrigated and debrided, surgical cultures obtained then the patient was started on broad-spectrum antibiotics. Renal function stable, diuresing with Lasix 40 mg IV twice daily. Discussed anticoagulation for atrial fibrillation, the patient will consider the risks versus benefits of anticoagulation. TTE reported normal LVEF, dilated RV, pulmonary hypertension, moderate mitral valve regurgitation. 11/28 No events overnight, discontinued Zosyn and started Cefepime and Flagyl due to CKD and increased risk of kidney injury with vancomycin, continued IV vancomycin. Pending surgical cultures, hemoglobin this morning at 7.5 but stable when rechecked in the afternoon at 7.9. Vitamin B12 level was 402.9, will check Methylmalonic acid level. Increased lasix 40 mg IV BID to TID frequency. Physical exam Head: Atraumatic, normal inspection. Eyes: normal appearance, no scleral icterus. Neck: full ROM Respiratory: no respiratory distress. Cardiovascular: normal rate and rhythm, S1, S2. GI/Abdominal: Obesely distended, soft, nontender, no guarding. Extremities: Bilateral lower extremity pitting edema, left knee covered with clean bandage, left knee wound vac draining serosanginous fluid. Neurological: CN II-XII intact, intact motor, intact sensation. Psychiatric: normal mood. Skin: warm, normal color Constitutional Vitals: Vital Signs Temp Pulse Resp BP Pulse Ox 98.2 F 69 18 116/62 97 11/28/21 11:28 11/28/21 11:28 11/28/21 11:28 11/28/21 11:28 11/28/21 11:28 Period Temp Pulse Resp BP Sys/Murphy Pulse Ox Last 24 Hr 97.5 F-99.6 F 57-106 16-27 107-140/54-91 91-100 Intake and Output 11/28/21 11/28/21 11/28/21 05:59 13:59 21:59 Intake Total 1110 890 Output Total 1400 900 Balance -290 -10 Intake & Output: Intake & Output 11/28/21 11/28/21 11/28/21 05:59 13:59 21:59 Intake Total 1110 890 Output Total 1400 900 Balance -290 -10 Intake: IV 150 650 Zosyn 3.375 gm In Dextrose 5% 50 50 in Water 50 ml @ 100 mls/hr IV Q8H [facility] Rx#:[id number] Vancomycin 500 mg In Sodium 100 Chloride 0.9% 100 ml @ 100 mls/ hr IV ONCE ONE Rx#:[id number] Vancomycin 1,500 mg In Sodium 500 Chloride 0.9% 500 ml @ 333.3 mls/hr IV Q12H [facility] Rx#: [id number] Flagyl 500 mg In Premix 1 Bag @ 100 100 mls/hr IV Q8H [facility] Rx#: [id number] Oral 960 240 Output: Drainage 100 100 Left Knee 100 100 Urine Catheter Amount 1300 800 Other: Meal Lunch Percent of Meal Consumed 100% Feeding Ability Independent Urine Appearance Clear Clear Uretheral (Turner) Clear Clear Urine Color Bright Yellow Light Mary Uretheral (Turner) Straw Dark Mary Urine Odor Strong Normal OBJ DATA Labs CBC & Chem 7: 11/28/21 12:06 11/28/21 05:35 Labs: Abnormal Lab Results 11/28/21 11/28/21 11/28/21 12:06 05:35 05:35 RBC 2.64 L Hgb 7.9 L 7.5 L Hct 27.0 L MCV 102.3 H MCHC 27.8 L RDW 16.3 H MPV 11.4 H Neut % (Auto) 90.9 H Lymph % (Auto) 2.4 L [place] % (Auto) Lymph # (Auto) 0.23 L Lymphocytes % Monocytes % (Manual) Absolute Neutrophils 8.63 H RBC Morphology Anisocytosis Macrocytosis ESR PT INR BUN 36 H Creatinine 1.9 H Glucose 166 H Uric Acid 10.3 H Direct Bilirubin Lactate Dehydrogenase NT-Pro-B Natriuret Pep Albumin 2.5 L Globulin 3.9 H Albumin/Globulin Ratio 0.6 L Procalcitonin U [place] Prot/Creat Ratio 11/27/21 11/27/21 11/26/21 05:31 05:31 23:00 RBC 3.13 L Hgb 9.1 L Hct 31.9 L MCV 101.9 H MCHC 28.5 L RDW 16.6 H MPV 11.4 H Neut % (Auto) 78.3 H Lymph % (Auto) 5.7 L [place] % (Auto) 12.3 H Lymph # (Auto) 0.35 L Lymphocytes % Monocytes % (Manual) Absolute Neutrophils RBC Morphology Anisocytosis Macrocytosis ESR PT INR BUN 30 H Creatinine 1.8 H Glucose Uric Acid 9.8 H Direct Bilirubin 0.3 H Lactate Dehydrogenase 234 H NT-Pro-B Natriuret Pep Albumin 2.9 L Globulin 4.4 H Albumin/Globulin Ratio 0.7 L Procalcitonin U [place] Prot/Creat Ratio 1.57 H 11/26/21 11/26/21 11/26/21 22:15 22:15 22:15 RBC 3.11 L Hgb 8.9 L Hct 32.0 L MCV 102.9 H MCHC 27.8 L RDW 16.6 H MPV 11.4 H Neut % (Auto) Lymph % (Auto) [place] % (Auto) Lymph # (Auto) Lymphocytes % 10 L Monocytes % (Manual) 13 H Absolute Neutrophils RBC Morphology Abnormal A Anisocytosis 1+ A Macrocytosis 1+ A ESR PT 15.3 H INR 1.2 H BUN 31 H Creatinine 1.8 H Glucose Uric Acid 9.8 H Direct Bilirubin 0.3 H Lactate Dehydrogenase NT-Pro-B Natriuret Pep Albumin 2.9 L Globulin 4.4 H Albumin/Globulin Ratio 0.7 L Procalcitonin U [place] Prot/Creat Ratio 11/26/21 11/26/21 11/26/21 22:05 22:05 21:05 RBC Hgb Hct MCV MCHC RDW MPV Neut % (Auto) Lymph % (Auto) [place] % (Auto) Lymph # (Auto) Lymphocytes % Monocytes % (Manual) Absolute Neutrophils RBC Morphology Anisocytosis Macrocytosis ESR 55 H PT INR BUN Creatinine Glucose Uric Acid Direct Bilirubin Lactate Dehydrogenase NT-Pro-B Natriuret Pep 3882.0 H Albumin Globulin Albumin/Globulin Ratio Procalcitonin 0.15 H U [place] Prot/Creat Ratio Meds: Medications Acetaminophen (Acetaminophen 325 Mg Tablet) 650 mg PO Q6HP PRN; Protocol PRN Reason: Per Pain Protocol/Fever > 101 Last Admin: 11/28/21 13:20 Dose: 650 mg Documented by: Hydrocodone Bitart/Acetaminophen (Hydrocodone/Apap 5/325mg Tablet) 1 tab PO Q4HP PRN; Protocol PRN Reason: Per Pain Protocol Last Admin: 11/28/21 11:25 Dose: 1 tab Documented by: Albuterol Sulfate (Albuterol Sulfate 200 Puff Inhaler) 2 puff INH QIDP PRN PRN Reason: Shortness Of Breath Aspirin (Aspirin 81 Mg Tab.Chew) 81 mg PO DAILY [facility] Last Admin: 11/28/21 08:02 Dose: 81 mg Documented by: Cefepime HCl (Cefepime 2 Gm Vial) 2 gm IV Q12H [facility]; Protocol Last Admin: 11/28/21 09:29 Dose: 2 gm Documented by: Docusate Sodium (Docusate Sodium 100 Mg Capsule) 100 mg PO BID [facility] Last Admin: 11/28/21 08:02 Dose: 100 mg Documented by: Furosemide (Furosemide 40 Mg/4 Ml Vial) 40 mg IV BIDD [facility] Last Admin: 11/28/21 08:02 Dose: 40 mg Documented by: Vancomycin HCl 1,500 mg/ (Sodium Chloride) 500 mls @ 333.3 mls/hr IV Q12H [facility] Last Infusion: 11/28/21 11:18 Dose: Infused Documented by: Metronidazole 500 mg/ Premix 100 mls @ 100 mls/hr IV Q8H [facility]; Protocol Last Infusion: 11/28/21 12:28 Dose: Infused Documented by: Ondansetron HCl (Ondansetron 4 Mg/2 Ml Vial) 4 mg IV Q6HP PRN PRN Reason: Nausea And Vomiting Senna (Sennosides 1 Tablet) 2 tab PO HS [facility] Last Admin: 11/27/21 20:55 Dose: 2 tab Documented by: Sodium Chloride (0.9 % Sodium Chloride 10 Ml Syringe) 10 ml IV Q8 [facility] Last Admin: 11/28/21 13:18 Dose: 10 ml Documented by: Tamsulosin HCl (Tamsulosin 0.4 Mg Capsule) 0.4 mg PO QDAY [facility] Last Admin: 11/28/21 08:02 Dose: 0.4 mg Documented by: Vancomycin HCl (Vancomycin Per Pharmacy) 1 order IV UD [facility]; Protocol A/P Narrative A/P Narrative: Assessment: 76 year old male with a history of atrial fibrillation, CKD IIIb, COPD requiring 2 L/min transferred from [facility] ED for further evaluation of possible septic arthritis of the left knee. #Possible septic arthritis of left knee #Large hematoma in left knee area status post I&D #Volume overload secondary to HFpEF #Pulmonary hypertension #COPD w/ chronic hypoxia (3 L/min) #Atrial fibrillation, not on anticoagulation #CKD IIIb #Proteinuria #Macrocytic anemia #Turner catheter #Obesity Plan -Vancomycin, Cefepime, Flagyl for now. -Follow surgical and blood cultures. -Oxygen supplementation. -Lasix 40 mg IV TID. -Monitor renal function, electrolytes and volume status. -Analgesics. -Continue home aspirin, Flomax, holding home torsemide for now. -patient monitor. -Orthopedic surgery following. -PT consult. -Low-sodium diet -Wound VAC management. -Remove Turner catheter after diuresis. -DVT ppx: per surgery -Code status: Full -Disposition: Probably SNF for rehab, wound care, IV antibiotics. Time Spent With Patient Time: Total time spent is greater than 50% in coordination of care (as documented) at patient's floor/unit and/or counseling patient: QUALITY VTE Deep Vein Thrombosis/Pulmonary Embolism Present on Admission: No
[2021-11-28] MEDS: HEPARIN 5,000 UNIT/ML VIAL SQ SCH (20:24)
[2021-11-28] MEDS: SENNOSIDES 1 TABLET PO SCH (20:24)
[2021-11-29] MEDS: 0.9 % SODIUM CHLORIDE 10 ML SYRINGE IV SCH ×3 (05:26→21:29)
[2021-11-29] MEDS: metroNIDAZOLE 500 MG in PREMIX 1 BAG IV SCH ×3 (05:27→21:29)
[2021-11-29 06:38] LABS: Basophils # (Auto) 0.02 K/mcL (0.00-0.30); Basophils % (Auto) 0.2 % (0.0-2.0); Eosinophils # (Auto) 0.19 K/mcL (0.00-0.70); Eosinophils % (Auto) 2.3 % (0.0-7.0); Hematocrit 26.5 % (40.1-51.0); Hemoglobin 7.6 g/dL (13.7-17.5); Lymphocytes # (Auto) 0.52 K/mcL (1.50-4.80); Lymphocytes % (Auto) 6.3 % (15.5-49.0); Mean Cell Volume 101.1 fL (80.0-100.0); Mean Corpuscular HGB Conc 28.7 g/dL (31.0-36.0); Mean Platelet Volume 11.6 fL (7.4-10.4); Monocytes % (Auto) 12.1 % (1.0-12.0); Neutrophils % (Auto) 79.1 % (38.0-78.0); Platelet Count 202 K/mcL (140-440); RBC 2.62 M/mcL (4.63-6.08); Red Cell Distribution Width 16.1 % (11.5-14.5); WBC 8.2 K/mcL (4.5-11.0)
[2021-11-29 08:19] LABS: ALT/SGPT < 5 U/L (<40); AST/SGOT 10 U/L (<40); Albumin 2.5 gm/dL (3.2-5.2); Albumin/Globulin Ratio 0.6 (1.0-2.3); Alkaline Phosphatase 58 U/L (39-117); Bilirubin,Direct < 0.2 mg/dL (0-0.3); Bilirubin,Total 0.4 mg/dL (0.1-1.0); Blood Urea Nitrogen 38 mg/dL (8-23); Calcium 8.5 mg/dL (8.6-10.4); Carbon Dioxide 23 mmol/L (22-30); Chloride 102 mmol/L (96-108); Glomerular Filtration Rate 31; Glucose 102 mg/dL (70-105); Lactate Dehydrogenase 194 U/L (135-225); Triglycerides 44 mg/dL (<150)
[2021-11-29] MEDS: HEPARIN 5,000 UNIT/ML VIAL SQ SCH ×2 (08:23→21:08)
[2021-11-29] MEDS: DOCUSATE SODIUM 100 MG CAPSULE PO SCH ×2 (08:24→21:32)
[2021-11-29] MEDS: FUROSEMIDE 40 MG/4 ML VIAL IV SCH ×3 (08:24→21:08)
[2021-11-29] MEDS: CEFEPIME 2 GM VIAL IV SCH ×2 (08:24→21:28)
[2021-11-29] MEDS: ASPIRIN 81 MG TAB.CHEW PO SCH (08:24)
[2021-11-29] MEDS: TAMSULOSIN 0.4 MG CAPSULE PO SCH (08:24)
[2021-11-29] MEDS: HYDROcodone/APAP 5/325MG TABLET PO PRN ×3 (09:05→18:48)
[2021-11-29] MEDS: VANCOMYCIN 1,500 MG in 0.9 % SODIUM CHLORIDE 500 ML IV SCH ×2 (09:06→23:01)
--- NOTE | 2021-11-29 09:24 | EKG ---
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
[2021-11-29] MEDS: ACETAMINOPHEN 325 MG TABLET PO PRN (10:24)
--- NOTE | 2021-11-29 11:27 | Internal Med Progress Note ---
SUBJECTIVE Subjective Patient information: Note initiated : 11/29/21 at 11:21 am Service Date, if different from initiated Date: [] Patient: Nakul Andrew a 76 y/o M admitted on 11/26/21 for Left Septic Knee. Chief Complaint: [] Interval history: Mr. Andrew is a 76 year old male with a history of atrial fibrillation, CKD IIIb, COPD requiring 3 L/min who presented to the Emergency Department at [facility] for right knee swelling and drainage. The patient had a fall about a month prior to admission after which he developed a bullae on the left knee. The knee recently began to drain purulent fluid. At the ED the patient was felt to have a septic knee. The ED provider discussed the patient with Dr. De La Cruz who felt the patient should have a surgical intervention for what is probably septic arthritis of the patient's left knee. The patient was transferred to [facility] for further evaluation. Upon arrival to [facility] the patient was found to have a open wound over his left knee. Exam was notable for volume overload with bilateral extremity pitting edema, sacral pitting edema. The patient was in no distress upon arrival. He does appear to have some cognitive impairment and admits to having some memory issues due to "too many concussions ". We reviewed CODE STATUS in detail, the patient wishes to be full code. 11/27 Underwent surgery today, noted to have left knee skin necrosis with a large subcutaneous abscess and probable deep infection of the left knee joint, the left knee was irrigated and debrided, surgical cultures obtained then the patient was started on broad-spectrum antibiotics. Renal function stable, diuresing with Lasix 40 mg IV twice daily. Discussed anticoagulation for atrial fibrillation, the patient will consider the risks versus benefits of anticoagulation. TTE reported normal LVEF, dilated RV, pulmonary hypertension, moderate mitral valve regurgitation. 11/28 No events overnight, discontinued Zosyn and started Cefepime and Flagyl due to CKD and increased risk of kidney injury with vancomycin, continued IV vancomycin. Pending surgical cultures, hemoglobin this morning at 7.5 but stable when rechecked in the afternoon at 7.9. Vitamin B12 level was 402.9, will check Methylmalonic acid level. Increased lasix 40 mg IV BID to TID frequency. 11/29 No major events overnight, the patient is resting comfortably this morning. Diuresing well with IV Lasix, creatinine 2.0 but probably within the patient's baseline range. Surgical cultures pending and showing no growth to date, blood cultures x2 showing no growth to date. Urine culture growing gram-negative bacillus. Hemoglobin about the same at 7.6, wound VAC continues to drain serosanguineous fluid. The patient continues on broad-spectrum antibiotics. Physical exam Head: Atraumatic, normal inspection. Eyes: normal appearance, no scleral icterus. Neck: full ROM Respiratory: no respiratory distress. Cardiovascular: normal rate and rhythm, S1, S2. GI/Abdominal: Obesely distended, soft, nontender, no guarding. Extremities: Bilateral lower extremity pitting edema, left knee covered with clean bandage, left knee wound vac draining serosanginous fluid. Neurological: CN II-XII intact, intact motor, intact sensation. Psychiatric: normal mood. Skin: warm, normal color Constitutional Vitals: Vital Signs Temp Pulse Resp BP Pulse Ox 97.8 F 62 18 131/64 97 11/29/21 11:08 11/29/21 11:08 11/29/21 11:08 11/29/21 11:08 11/29/21 11:08 Period Temp Pulse Resp BP Sys/Murphy Pulse Ox Last 24 Hr 97.8 F-98.9 F 62-92 18-20 116-155/60-93 96-99 Intake and Output 11/28/21 11/29/21 11/29/21 20:59 05:59 13:59 Intake Total 840 Output Total 1150 Balance -310 Weight Intake & Output: Intake & Output 11/28/21 11/29/21 11/29/21 20:59 05:59 13:59 Intake Total 840 Output Total 1150 Balance -310 Weight Intake: IV 600 Vancomycin 1,500 mg In Sodium 500 Chloride 0.9% 500 ml @ 333.3 mls/hr IV Q12H JOCELYN Rx#: [id number] Flagyl 500 mg In Premix 1 Bag @ 100 100 mls/hr IV Q8H JOCELYN Rx#: [id number] Oral 240 Output: Drainage Left Knee Drainage Left Knee Urine Catheter Amount 1150 Other: Meal Breakfast Percent of Meal Consumed 25% Feeding Ability Independent Urine Appearance Clear Uretheral (Turner) Clear Urine Color Light Mary Uretheral (Turner) Light Mary Urine Odor Normal Uretheral (Turner) OBJ DATA Labs CBC & Chem 7: 11/29/21 05:23 11/29/21 05:23 Labs: Abnormal Lab Results 11/29/21 11/29/21 11/28/21 05:23 05:23 12:06 RBC 2.62 L Hgb 7.6 L 7.9 L Hct 26.5 L MCV 101.1 H MCHC 28.7 L RDW 16.1 H MPV 11.6 H Neut % (Auto) 79.1 H Lymph % (Auto) 6.3 L [place] % (Auto) 12.1 H Lymph # (Auto) 0.52 L [place] # (Auto) 1.00 H Lymphocytes % Monocytes % (Manual) Absolute Neutrophils RBC Morphology Anisocytosis Macrocytosis ESR PT INR BUN 38 H Creatinine 2.0 H Glucose Uric Acid 10.0 H Calcium 8.5 L Direct Bilirubin Lactate Dehydrogenase NT-Pro-B Natriuret Pep Albumin 2.5 L Globulin 4.0 H Albumin/Globulin Ratio 0.6 L Procalcitonin U [place] Prot/Creat Ratio 11/28/21 11/28/21 11/27/21 05:35 05:35 05:31 RBC 2.64 L Hgb 7.5 L Hct 27.0 L MCV 102.3 H MCHC 27.8 L RDW 16.3 H MPV 11.4 H Neut % (Auto) 90.9 H Lymph % (Auto) 2.4 L [place] % (Auto) Lymph # (Auto) 0.23 L [place] # (Auto) Lymphocytes % Monocytes % (Manual) Absolute Neutrophils 8.63 H RBC Morphology Anisocytosis Macrocytosis ESR PT INR BUN 36 H 30 H Creatinine 1.9 H 1.8 H Glucose 166 H Uric Acid 10.3 H 9.8 H Calcium Direct Bilirubin 0.3 H Lactate Dehydrogenase 234 H NT-Pro-B Natriuret Pep Albumin 2.5 L 2.9 L Globulin 3.9 H 4.4 H Albumin/Globulin Ratio 0.6 L 0.7 L Procalcitonin U [place] Prot/Creat Ratio 11/27/21 11/26/21 11/26/21 05:31 23:00 22:15 RBC 3.13 L 3.11 L Hgb 9.1 L 8.9 L Hct 31.9 L 32.0 L MCV 101.9 H 102.9 H MCHC 28.5 L 27.8 L RDW 16.6 H 16.6 H MPV 11.4 H 11.4 H Neut % (Auto) 78.3 H Lymph % (Auto) 5.7 L [place] % (Auto) 12.3 H Lymph # (Auto) 0.35 L [place] # (Auto) Lymphocytes % 10 L Monocytes % (Manual) 13 H Absolute Neutrophils RBC Morphology Abnormal A Anisocytosis 1+ A Macrocytosis 1+ A ESR PT INR BUN Creatinine Glucose Uric Acid Calcium Direct Bilirubin Lactate Dehydrogenase NT-Pro-B Natriuret Pep Albumin Globulin Albumin/Globulin Ratio Procalcitonin U [place] Prot/Creat Ratio 1.57 H 11/26/21 11/26/21 11/26/21 22:15 22:15 22:05 RBC Hgb Hct MCV MCHC RDW MPV Neut % (Auto) Lymph % (Auto) [place] % (Auto) Lymph # (Auto) [place] # (Auto) Lymphocytes % Monocytes % (Manual) Absolute Neutrophils RBC Morphology Anisocytosis Macrocytosis ESR PT 15.3 H INR 1.2 H BUN 31 H Creatinine 1.8 H Glucose Uric Acid 9.8 H Calcium Direct Bilirubin 0.3 H Lactate Dehydrogenase NT-Pro-B Natriuret Pep Albumin 2.9 L Globulin 4.4 H Albumin/Globulin Ratio 0.7 L Procalcitonin 0.15 H U [place] Prot/Creat Ratio 11/26/21 11/26/21 22:05 21:05 RBC Hgb Hct MCV MCHC RDW MPV Neut % (Auto) Lymph % (Auto) [place] % (Auto) Lymph # (Auto) [place] # (Auto) Lymphocytes % Monocytes % (Manual) Absolute Neutrophils RBC Morphology Anisocytosis Macrocytosis ESR 55 H PT INR BUN Creatinine Glucose Uric Acid Calcium Direct Bilirubin Lactate Dehydrogenase NT-Pro-B Natriuret Pep 3882.0 H Albumin Globulin Albumin/Globulin Ratio Procalcitonin U [place] Prot/Creat Ratio Meds: Medications Acetaminophen (Acetaminophen 325 Mg Tablet) 650 mg PO Q6HP PRN; Protocol PRN Reason: Per Pain Protocol/Fever > 101 Last Admin: 11/29/21 10:24 Dose: 650 mg Documented by: Hydrocodone Bitart/Acetaminophen (Hydrocodone/Apap 5/325mg Tablet) 1 tab PO Q4HP PRN; Protocol PRN Reason: Per Pain Protocol Last Admin: 11/29/21 09:05 Dose: 1 tab Documented by: Albuterol Sulfate (Albuterol Sulfate 200 Puff Inhaler) 2 puff INH QIDP PRN PRN Reason: Shortness Of Breath Aspirin (Aspirin 81 Mg Tab.Chew) 81 mg PO DAILY [facility] Last Admin: 11/29/21 08:24 Dose: 81 mg Documented by: Cefepime HCl (Cefepime 2 Gm Vial) 2 gm IV Q12H [facility]; Protocol Last Admin: 11/29/21 08:24 Dose: 2 gm Documented by: Docusate Sodium (Docusate Sodium 100 Mg Capsule) 100 mg PO BID [facility] Last Admin: 11/29/21 08:24 Dose: 100 mg Documented by: Furosemide (Furosemide 40 Mg/4 Ml Vial) 40 mg IV TID [facility] Last Admin: 11/29/21 08:24 Dose: 40 mg Documented by: Heparin Sodium (Porcine) (Heparin 5,000 Unit/Ml Vial) 5,000 unit SQ Q12 [facility] Last Admin: 11/29/21 08:23 Dose: 5,000 unit Documented by: Vancomycin HCl 1,500 mg/ (Sodium Chloride) 500 mls @ 333.3 mls/hr IV Q12H [facility] Last Infusion: 11/29/21 11:07 Dose: Infused Documented by: Metronidazole 500 mg/ Premix 100 mls @ 100 mls/hr IV Q8H [facility]; Protocol Last Infusion: 11/29/21 06:31 Dose: Infused Documented by: Ondansetron HCl (Ondansetron 4 Mg/2 Ml Vial) 4 mg IV Q6HP PRN PRN Reason: Nausea And Vomiting Senna (Sennosides 1 Tablet) 2 tab PO HS [facility] Last Admin: 11/28/21 20:24 Dose: 2 tab Documented by: Sodium Chloride (0.9 % Sodium Chloride 10 Ml Syringe) 10 ml IV Q8 [facility] Last Admin: 11/29/21 05:26 Dose: 10 ml Documented by: Tamsulosin HCl (Tamsulosin 0.4 Mg Capsule) 0.4 mg PO QDAY [facility] Last Admin: 11/29/21 08:24 Dose: 0.4 mg Documented by: Vancomycin HCl (Vancomycin Per Pharmacy) 1 order IV UD [facility]; Protocol A/P Narrative A/P Narrative: Assessment: 76 year old male with a history of atrial fibrillation, CKD IIIb, COPD requiring 2 L/min transferred from [facility] ED for further evaluation of possible septic arthritis of the left knee. #Possible septic arthritis of left knee #Large hematoma in left knee area status post I&D #Volume overload secondary to HFpEF #Pulmonary hypertension #COPD w/ chronic hypoxia (3 L/min) #Atrial fibrillation, not on anticoagulation #CKD IIIb #Proteinuria #Macrocytic anemia #Turner catheter #Obesity Plan -Vancomycin, Cefepime, Flagyl for now. -Follow surgical and blood cultures. -Oxygen supplementation. -Lasix 40 mg IV TID for now. -Monitor renal function, electrolytes and volume status. -Analgesics. -Continue home aspirin, Flomax. -Holding home torsemide for now. -Not a candidate for anticoagulation given hematoma left knee and wound VAC felicia ining bloody fluid. 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 -Orthopedic surgery following. -PT consult. -Low-sodium diet -Wound VAC management. -Remove Turner catheter after diuresis. -DVT ppx: heparin SQ -Code status: Full -Disposition: Probably SNF for rehab, wound care, possibly IV antibiotics. Time Spent With Patient Time: Total time spent is greater than 50% in coordination of care (as documented) at patient's floor/unit and/or counseling patient: QUALITY VTE Deep Vein Thrombosis/Pulmonary Embolism Present on Admission: No
[2021-11-29] MEDS ORDERED: ALBUMIN HUMAN 12.5 GM/50 ML BAG IV ONE (15:10)
--- NOTE | 2021-11-29 15:11 | Internal Med Progress Note ---
SUBJECTIVE Subjective Patient information: Note initiated : 11/29/21 at 2:59 pm Service Date, if different from initiated Date: [] Patient: Nakul Andrew a 76 y/o M admitted on 11/26/21 for Left Septic Knee. Chief Complaint: [] Interval history: Mr. Andrew is a 76 year old male with a history of atrial fibrillation, CKD IIIb, COPD requiring 3 L/min who presented to the Emergency Department at [facility] for right knee swelling and drainage. The patient had a fall about a month prior to admission after which he developed a bullae on the left knee. The knee recently began to drain purulent fluid. At the ED the patient was felt to have a septic knee. The ED provider discussed the patient with Dr. De aL Cruz who felt the patient should have a surgical intervention for what is probably septic arthritis of the patient's left knee. The patient was transferred to [facility] for further evaluation. Upon arrival to [facility] the patient was found to have a open wound over his left knee. Exam was notable for volume overload with bilateral extremity pitting edema, sacral pitting edema. The patient was in no distress upon arrival. He does appear to have some cognitive impairment and admits to having some memory issues due to "too many concussions ". We reviewed CODE STATUS in detail, the patient wishes to be full code. 11/27 Underwent surgery today, noted to have left knee skin necrosis with a large subcutaneous abscess and probable deep infection of the left knee joint, the left knee was irrigated and debrided, surgical cultures obtained then the patient was started on broad-spectrum antibiotics. Renal function stable, diuresing with Lasix 40 mg IV twice daily. Discussed anticoagulation for atrial fibrillation, the patient will consider the risks versus benefits of anticoagulation. TTE reported normal LVEF, dilated RV, pulmonary hypertension, moderate mitral valve regurgitation. 11/28 No events overnight, discontinued Zosyn and started Cefepime and Flagyl due to CKD and increased risk of kidney injury with vancomycin, continued IV vancomycin. Pending surgical cultures, hemoglobin this morning at 7.5 but stable when rechecked in the afternoon at 7.9. Vitamin B12 level was 402.9, will check Methylmalonic acid level. Increased lasix 40 mg IV BID to TID frequency. 11/29 No major events overnight, the patient is resting comfortably this morning. Diuresing well with IV Lasix, creatinine 2.0 but probably within the patient's baseline range. Surgical cultures pending and showing no growth to date, blood cultures x2 showing no growth to date. Urine culture growing gram-negative bacillus. Hemoglobin about the same at 7.6, wound VAC continues to drain serosanguineous fluid. The patient continues on broad-spectrum antibiotics. 11/30 Constitutional Vitals: Vital Signs Temp Pulse Resp BP Pulse Ox 97.8 F 62 18 131/64 97 11/29/21 11:08 11/29/21 11:08 11/29/21 11:08 11/29/21 11:08 11/29/21 11:08 Period Temp Pulse Resp BP Sys/Murphy Pulse Ox Last 24 Hr 97.8 F-98.9 F 62-92 18-20 120-155/60-93 96-99 Intake and Output 11/29/21 11/29/21 11/29/21 05:59 13:59 21:59 Intake Total 840 Output Total 1150 Balance -310 Intake & Output: Intake & Output 11/29/21 11/29/21 11/29/21 05:59 13:59 21:59 Intake Total 840 Output Total 1150 Balance -310 Intake: IV 600 Vancomycin 1,500 mg In Sodium 500 Chloride 0.9% 500 ml @ 333.3 mls/hr IV Q12H [facility]OC[facility] Rx#: [id number] Flagyl 500 mg In Premix 1 Bag @ 100 100 mls/hr IV Q8H [facility]OCELYN Rx#: [id number] Oral 240 Output: Drainage Left Knee Urine Catheter Amount 1150 Other: Meal Breakfast Lunch Percent of Meal Consumed 25% 100% Feeding Ability Independent Independent Urine Appearance Clear Uretheral (Turner) Clear Urine Color Light Mary Uretheral (Turner) Light Mary Urine Odor Normal Uretheral (Turner) Exam: General: Alert, Awake, No acute Distress, obese Eyes/N/T: EOMI, Head/Neck: neck supple, CV: RRR, No murmurs, Pulm: Clear b/l, no wheezing/rhonchi/rales Abd: soft, nontender, +BS x4 Ext: no clubbing/cyanosis, b/l LE edema Neuro: Alert, no focal deficits, moves all extremities, Skin: warm/dry OBJ DATA Labs CBC & Chem 7: 11/29/21 05:23 11/29/21 05:23 Labs: Abnormal Lab Results 11/29/21 11/29/21 11/28/21 05:23 05:23 12:06 RBC 2.62 L Hgb 7.6 L 7.9 L Hct 26.5 L MCV 101.1 H MCHC 28.7 L RDW 16.1 H MPV 11.6 H Neut % (Auto) 79.1 H Lymph % (Auto) 6.3 L [place] % (Auto) 12.1 H Lymph # (Auto) 0.52 L [place] # (Auto) 1.00 H Lymphocytes % Monocytes % (Manual) Absolute Neutrophils RBC Morphology Anisocytosis Macrocytosis ESR PT INR BUN 38 H Creatinine 2.0 H Glucose Uric Acid 10.0 H Calcium 8.5 L Direct Bilirubin Lactate Dehydrogenase NT-Pro-B Natriuret Pep Albumin 2.5 L Globulin 4.0 H Albumin/Globulin Ratio 0.6 L Procalcitonin U [place] Prot/Creat Ratio 11/28/21 11/28/21 11/27/21 05:35 05:35 05:31 RBC 2.64 L Hgb 7.5 L Hct 27.0 L MCV 102.3 H MCHC 27.8 L RDW 16.3 H MPV 11.4 H Neut % (Auto) 90.9 H Lymph % (Auto) 2.4 L [place] % (Auto) Lymph # (Auto) 0.23 L [place] # (Auto) Lymphocytes % Monocytes % (Manual) Absolute Neutrophils 8.63 H RBC Morphology Anisocytosis Macrocytosis ESR PT INR BUN 36 H 30 H Creatinine 1.9 H 1.8 H Glucose 166 H Uric Acid 10.3 H 9.8 H Calcium Direct Bilirubin 0.3 H Lactate Dehydrogenase 234 H NT-Pro-B Natriuret Pep Albumin 2.5 L 2.9 L Globulin 3.9 H 4.4 H Albumin/Globulin Ratio 0.6 L 0.7 L Procalcitonin U [place] Prot/Creat Ratio 11/27/21 11/26/21 11/26/21 05:31 23:00 22:15 RBC 3.13 L 3.11 L Hgb 9.1 L 8.9 L Hct 31.9 L 32.0 L MCV 101.9 H 102.9 H MCHC 28.5 L 27.8 L RDW 16.6 H 16.6 H MPV 11.4 H 11.4 H Neut % (Auto) 78.3 H Lymph % (Auto) 5.7 L [place] % (Auto) 12.3 H Lymph # (Auto) 0.35 L [place] # (Auto) Lymphocytes % 10 L Monocytes % (Manual) 13 H Absolute Neutrophils RBC Morphology Abnormal A Anisocytosis 1+ A Macrocytosis 1+ A ESR PT INR BUN Creatinine Glucose Uric Acid Calcium Direct Bilirubin Lactate Dehydrogenase NT-Pro-B Natriuret Pep Albumin Globulin Albumin/Globulin Ratio Procalcitonin U [place] Prot/Creat Ratio 1.57 H 11/26/21 11/26/21 11/26/21 22:15 22:15 22:05 RBC Hgb Hct MCV MCHC RDW MPV Neut % (Auto) Lymph % (Auto) [place] % (Auto) Lymph # (Auto) [place] # (Auto) Lymphocytes % Monocytes % (Manual) Absolute Neutrophils RBC Morphology Anisocytosis Macrocytosis ESR PT 15.3 H INR 1.2 H BUN 31 H Creatinine 1.8 H Glucose Uric Acid 9.8 H Calcium Direct Bilirubin 0.3 H Lactate Dehydrogenase NT-Pro-B Natriuret Pep Albumin 2.9 L Globulin 4.4 H Albumin/Globulin Ratio 0.7 L Procalcitonin 0.15 H U [place] Prot/Creat Ratio 11/26/21 11/26/21 22:05 21:05 RBC Hgb Hct MCV MCHC RDW MPV Neut % (Auto) Lymph % (Auto) [place] % (Auto) Lymph # (Auto) [place] # (Auto) Lymphocytes % Monocytes % (Manual) Absolute Neutrophils RBC Morphology Anisocytosis Macrocytosis ESR 55 H PT INR BUN Creatinine Glucose Uric Acid Calcium Direct Bilirubin Lactate Dehydrogenase NT-Pro-B Natriuret Pep 3882.0 H Albumin Globulin Albumin/Globulin Ratio Procalcitonin U [place] Prot/Creat Ratio Meds: Medications Acetaminophen (Acetaminophen 325 Mg Tablet) 650 mg PO Q6HP PRN; Protocol PRN Reason: Per Pain Protocol/Fever > 101 Last Admin: 11/29/21 10:24 Dose: 650 mg Documented by: Hydrocodone Bitart/Acetaminophen (Hydrocodone/Apap 5/325mg Tablet) 1 tab PO Q4HP PRN; Protocol PRN Reason: Per Pain Protocol Last Admin: 11/29/21 14:15 Dose: 1 tab Documented by: Albuterol Sulfate (Albuterol Sulfate 200 Puff Inhaler) 2 puff INH QIDP PRN PRN Reason: Shortness Of Breath Aspirin (Aspirin 81 Mg Tab.Chew) 81 mg PO DAILY [facility] Last Admin: 11/29/21 08:24 Dose: 81 mg Documented by: Cefepime HCl (Cefepime 2 Gm Vial) 2 gm IV Q12H [facility]; Protocol Last Admin: 11/29/21 08:24 Dose: 2 gm Documented by: Docusate Sodium (Docusate Sodium 100 Mg Capsule) 100 mg PO BID [facility] Last Admin: 11/29/21 08:24 Dose: 100 mg Documented by: Furosemide (Furosemide 40 Mg/4 Ml Vial) 40 mg IV TID [facility] Last Admin: 11/29/21 14:10 Dose: 40 mg Documented by: Heparin Sodium (Porcine) (Heparin 5,000 Unit/Ml Vial) 5,000 unit SQ Q12 [facility] Last Admin: 11/29/21 08:23 Dose: 5,000 unit Documented by: Vancomycin HCl 1,500 mg/ (Sodium Chloride) 500 mls @ 333.3 mls/hr IV Q12H [facility] Last Infusion: 11/29/21 11:07 Dose: Infused Documented by: Metronidazole 500 mg/ Premix 100 mls @ 100 mls/hr IV Q8H [facility]; Protocol Last Admin: 11/29/21 14:09 Dose: 100 mls/hr Documented by: Ondansetron HCl (Ondansetron 4 Mg/2 Ml Vial) 4 mg IV Q6HP PRN PRN Reason: Nausea And Vomiting Senna (Sennosides 1 Tablet) 2 tab PO HS [facility] Last Admin: 11/28/21 20:24 Dose: 2 tab Documented by: Sodium Chloride (0.9 % Sodium Chloride 10 Ml Syringe) 10 ml IV Q8 [facility] Last Admin: 11/29/21 14:15 Dose: 10 ml Documented by: Tamsulosin HCl (Tamsulosin 0.4 Mg Capsule) 0.4 mg PO QDAY [facility] Last Admin: 11/29/21 08:24 Dose: 0.4 mg Documented by: Vancomycin HCl (Vancomycin Per Pharmacy) 1 order IV UD [facility]; Protocol A/P Narrative A/P Narrative: A: #Likely septic arthritis & SQ Hematoma/Abscess of left knee: s/p I&D & washout (11/27) -No growth #Volume overload: 2/2 HFpEF #acute on chronic HFPEF & Pulmonary hypertension: #COPD w/chronic hypoxia (3 L/min): #h/o Atrial fibrillation, not on anticoagulation & still awaiting pt decision #CKD IIIb: #Macrocytic anemia, acute on chronic: #Obesity: Plan -Orthopedic surgery following -Vancomycin/Cefepime/Flagyl for now. MRSA screen neg. IV abx for at least 2-wks followed by 1-2wks oral therapy, will defer to orthopedics. Will treat with Rocephin IV 2gm once daily for 2-weeks and let ortho determine treatment from that point. -Lasix 40 mg IV TID for now; Monitor renal function, electrolytes and volume status. -Holding home torsemide for now. -Not a candidate for anticoagulation given hematoma left knee and wound VAC draining bloody fluid -cont home ASA -PT consult -Wound VAC management. -Oxygen supplementation. -Remove Turner catheter after diuresis. -Disposition: Probably SNF for rehab, wound care, possibly IV antibiotics. 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
--- NOTE | 2021-11-29 15:38 | Discharge Summary ---
Discharge Provider Provider Patient information: Note initiated : 11/29/21 at 3:35 pm Service Date, if different from initiated Date: [] Patient: Nakul Andrew 76 y/o M admitted on 11/26/21 for Left Septic Knee. Chief Complaint: [] Date of admission: 11/26/21 21:28 Discharge date: 12/01/21 Primary care physician: Georgi Waller PA-C Consults: 11/26/21 21:39 Consult to Physician [CONS] Routine Comment: Consulting Provider: Georgi De La Cruz Reason For Exam: Physician to Consult Discharge Meds Discharge Medications Home Medications albuterol sulfate 90 mcg/actuation aerosol inhaler (ProAir HFA) 2 puff INHALATION QID PRN 11/27/21 [History Confirmed 11/27/21 Last Taken Unknown] aspirin 81 mg tablet,delayed release 81 mg PO QDAY 11/27/21 [History Confirmed 11/27/21 Last Taken Unknown] colchicine 0.6 mg tablet 0.6 mg PO QID PRN 11/27/21 [History Confirmed 11/27/21 Last Taken Unknown] tamsulosin 0.4 mg capsule (Flomax) 0.4 mg PO QDAY 11/27/21 [History Confirmed 11/27/21 Last Taken Unknown] vancomycin 1.25 gram intravenous solution 1 g IV Q12H #1 ea 11/30/21 [Rx Last Taken Unknown] ceftazidime 1 gram intravenous solution 1 g IV Q12H #10 ea 12/01/21 [Rx Last Taken Unknown] torsemide 10 mg tablet 20 mg PO QDAY #30 tab 12/01/21 [Rx Last Taken Unknown] COURSE Hospital Course Hospital course: Interval history: Mr. Andrew is a 76 year old male with a history of atrial fibrillation, CKD IIIb, COPD requiring 3 L/min who presented to the Emergency Department at [facility] for right knee swelling and drainage. The patient had a fall about a month prior to admission after which he developed a bullae on the left knee. The knee recently began to drain purulent fluid. At the ED the patient was felt to have a septic knee. The ED provider discussed the patient with Dr. De La Cruz who felt the patient should have a surgical intervention for what is probably septic arthritis of the patient's left knee. The patient was transferred to [facility] for further evaluation. Upon arrival to [facility] the patient was found to have a open wound over his left knee. Exam was notable for volume overload with bilateral extremity pitting edema, sacral pitting edema. The patient was in no distress upon arrival. He does appear to have some cognitive impairment and admits to having some memory issues due to "too many concussions ". We reviewed CODE STATUS in detail, the patient wishes to be full code. 11/27 Underwent surgery today, noted to have left knee skin necrosis with a large subcutaneous abscess and probable deep infection of the left knee joint, the left knee was irrigated and debrided, surgical cultures obtained then the patient was started on broad-spectrum antibiotics. Renal function stable, diuresing with Lasix 40 mg IV twice daily. Discussed anticoagulation for atrial fibrillation, the patient will consider the risks versus benefits of anticoagulation. TTE reported normal LVEF, dilated RV, pulmonary hypertension, moderate mitral valve regurgitation. 11/28 No events overnight, discontinued Zosyn and started Cefepime and Flagyl due to CKD and increased risk of kidney injury with vancomycin, continued IV vancomycin. Pending surgical cultures, hemoglobin this morning at 7.5 but stable when rechecked in the afternoon at 7.9. Vitamin B12 level was 402.9, will check Methylmalonic acid level. Increased lasix 40 mg IV BID to TID frequency. 11/29 No major events overnight, the patient is resting comfortably this morning. Diuresing well with IV Lasix, creatinine 2.0 but probably within the patient's baseline range. Surgical cultures pending and showing no growth to date, blood cultures x2 showing no growth to date. Urine culture growing gram-negative bacillus. Hemoglobin about the same at 7.6, wound VAC continues to drain serosanguineous fluid. The patient continues on broad-spectrum antibiotics. 11/30 No overnight event or new complaints. Surgical cultures negative thus far. Ur ine cultures gram-negative bacillus. Hemoglobin stable. Renal function stable. 12/01 No changes overnight. Stable for discharge. A: #Likely septic arthritis & SQ Hematoma/Abscess of left knee: s/p I&D & washout (11/27) -No growth on Cx and gram stain neg #Volume overload: 2/2 HFpEF #acute on chronic HFPEF & Pulmonary hypertension: #COPD w/chronic hypoxia (3 L/min): #h/o Atrial fibrillation, not on anticoagulation & still awaiting pt decision #CKD IIIb: #Macrocytic anemia, acute on chronic: #Obesity: #UTI(pseudomonas): resistant to cipro Plan -Orthopedic surgery following -MRSA screen neg. IV abx for at least 2-wks followed by 1-2wks oral therapy, will defer to orthopedics once 2-week IV course completed. Will treat with Vanco IV. Treat pseudomonas UTI with IV ceftazidime -pt to f/u with PCP/Cardio regarding anticoagulation discussion once above resolved -Wound VAC management. -increase home torsemide from 10 to 20 daily Discharge diagnosis: Septic left knee and subcutaneous abscess hematoma volume overload acute on Secondary discharge diagnosis: Acute on chronic heart failure COPD A. fib CKD anemia obesity Time Spent with Patient Time attestation: Total time spent providing and/or coordinating discharge services: Time spent: Greater than 30 minutes EXAM Constitutional Vitals: Temp Pulse Resp BP Pulse Ox 97.2 F 63 16 129/62 94 11/29/21 15:11 11/29/21 15:11 11/29/21 15:11 11/29/21 15:11 11/29/21 15:11 Discharge Data Data Completed and Pending Labs on day of discharge: Labs from last 24 hours 11/29/21 11/29/21 11/28/21 05:23 05:23 12:06 WBC 8.2 RBC 2.62 L Hgb 7.6 L Hct 26.5 L MCV 101.1 H MCH 29.0 MCHC 28.7 L RDW 16.1 H Plt Count 202 MPV 11.6 H Neut % (Auto) 79.1 H Lymph % (Auto) 6.3 L Catron % (Auto) 12.1 H Eos % (Auto) 2.3 Baso % (Auto) 0.2 Lymph # (Auto) 0.52 L Catron # (Auto) 1.00 H Eos # (Auto) 0.19 Baso # (Auto) 0.02 Absolute Neutrophils 6.51 Sodium 137 Potassium 3.9 Chloride 102 Carbon Dioxide 23 Anion Gap 12.0 BUN 38 H Creatinine 2.0 H GFR Calculation 31 Glucose 102 Uric Acid 10.0 H Calcium 8.5 L Phosphorus 4.0 Magnesium 1.8 Total Bilirubin 0.4 Direct Bilirubin < 0.2 GGT 11 AST 10 ALT < 5 Alkaline Phosphatase 58 Lactate Dehydrogenase 194 Total Protein 6.5 Albumin 2.5 L Globulin 4.0 H Albumin/Globulin Ratio 0.6 L Triglycerides 44 Methylmalonic Acid Pending Preliminary micro results at discharge 11/25/21 23:00 Urine Culture - Preliminary Urine - Catheterized Gram negative bacillus 11/26/21 22:15 Blood Culture - Preliminary Blood 11/26/21 22:05 Blood Culture - Preliminary Blood Discharge Plan Patient/Caregiver Discharge Instructions Activity: increase activity as tolerated and as instructed Diet: Regular Diet Instructions: Basic Carbohydrate Counting (GEN), Metabolic Acidosis (GEN) Activity Restrictions/Additional Instructions: Follow-up with PCP in 3 to 7 days. f/u with PCP/Cardio regarding anticoagulation for afib Discharged on 2-weeks of IV Vancomycin. Will defer further abx management to Orthopedics - either continue IV vancomycin for 1-2 more weeks or change to PO Cephalexin 500mg qid for 1-2 more weeks. Prescriptions: New vancomycin 1.25 gram recon soln 1 g IV Q12H Qty: 1 0RF ceftazidime 1 gram recon soln 1 g IV Q12H Qty: 10 0RF Continued aspirin 81 mg Tablet,Delayed Release (Dr/Ec) 81 mg PO QDAY 0RF albuterol sulfate [ProAir HFA] 90 mcg/actuation Hfa Aerosol Inhaler 2 puff INHALATION QID PRN (Reason: Shortness Of Breath) 0RF tamsulosin [Flomax] 0.4 mg Capsule 0.4 mg PO QDAY 0RF colchicine 0.6 mg Tablet 0.6 mg PO QID PRN (Reason: Pain, Moderate) 0RF Changed torsemide 10 mg Tablet 20 mg PO QDAY Qty: 30 0RF Follow Up Plan Follow up with: Georgi De La Cruz MD [Physician] - (Discharged on 2-weeks of IV Vancomycin. Will defer further abx management to Orthopedics - either continue IV vancomycin for 1-2 more weeks or change to PO Cephalexin 500mg qid for 1-2 more weeks.) Patient Disposition: Xfer SNF Prognosis: Fair Rehab Potential: Fair I certify that the patient requires SNF services: Yes Overall status at discharge: patient is progressing back to baseline Discharge Orders: Discharge Order (Routine); Ordered 12/01/21 Ordered By: Mikhail Hooper Discharge Comment: cc: left knee infection QUALITY VTE Deep Vein Thrombosis/Pulmonary Embolism Present on Admission: No
[2021-11-29] MEDS: SENNOSIDES 1 TABLET PO SCH (21:08)
[2021-11-30] MEDS: HYDROcodone/APAP 5/325MG TABLET PO PRN ×3 (01:13→12:45)
[2021-11-30] MEDS: ACETAMINOPHEN 325 MG TABLET PO PRN (03:13)
[2021-11-30] MEDS: metroNIDAZOLE 500 MG in PREMIX 1 BAG IV SCH ×3 (05:24→22:42)
[2021-11-30] MEDS: 0.9 % SODIUM CHLORIDE 10 ML SYRINGE IV SCH ×5 (05:24→22:42)
[2021-11-30 06:18] LABS: Hematocrit 25.4 % (40.1-51.0); Hemoglobin 7.4 g/dL (13.7-17.5)
[2021-11-30 06:37] LABS: Blood Urea Nitrogen 42 mg/dL (8-23); Calcium 8.8 mg/dL (8.6-10.4); Carbon Dioxide 25 mmol/L (22-30); Chloride 98 mmol/L (96-108); Glomerular Filtration Rate 38; Glucose 100 mg/dL (70-105)
[2021-11-30] MEDS ORDERED: LACTULOSE 20 GM/30 ML ORAL.SOL PO ONE (08:05)
[2021-11-30] MEDS ORDERED: BISACODYL 5 MG TABLET PO ONE (08:05)
--- NOTE | 2021-11-30 08:07 | Internal Med Progress Note ---
SUBJECTIVE Subjective Patient information: Note initiated : 11/30/21 at 8:03 am Service Date, if different from initiated Date: [] Patient: Nakul Andrew a 76 y/o M admitted on 11/26/21 for Left Septic Knee. Chief Complaint: [] Interval history: Mr. Andrew is a 76 year old male with a history of atrial fibrillation, CKD IIIb, COPD requiring 3 L/min who presented to the Emergency Department at [facility] for right knee swelling and drainage. The patient had a fall about a month prior to admission after which he developed a bullae on the left knee. The knee recently began to drain purulent fluid. At the ED the patient was felt to have a septic knee. The ED provider discussed the patient with Dr. De La Cruz who felt the patient should have a surgical intervention for what is probably septic arthritis of the patient's left knee. The patient was transferred to [facility] for further evaluation. Upon arrival to [facility] the patient was found to have a open wound over his left knee. Exam was notable for volume overload with bilateral extremity pitting edema, sacral pitting edema. The patient was in no distress upon arrival. He does appear to have some cognitive impairment and admits to having some memory issues due to "too many concussions ". We reviewed CODE STATUS in detail, the patient wishes to be full code. 11/27 Underwent surgery today, noted to have left knee skin necrosis with a large subcutaneous abscess and probable deep infection of the left knee joint, the left knee was irrigated and debrided, surgical cultures obtained then the patient was started on broad-spectrum antibiotics. Renal function stable, diuresing with Lasix 40 mg IV twice daily. Discussed anticoagulation for atrial fibrillation, the patient will consider the risks versus benefits of anticoagulation. TTE reported normal LVEF, dilated RV, pulmonary hypertension, moderate mitral valve regurgitation. 11/28 No events overnight, discontinued Zosyn and started Cefepime and Flagyl due to CKD and increased risk of kidney injury with vancomycin, continued IV vancomycin. Pending surgical cultures, hemoglobin this morning at 7.5 but stable when rechecked in the afternoon at 7.9. Vitamin B12 level was 402.9, will check Methylmalonic acid level. Increased lasix 40 mg IV BID to TID frequency. 11/29 No major events overnight, the patient is resting comfortably this morning. Diuresing well with IV Lasix, creatinine 2.0 but probably within the patient's baseline range. Surgical cultures pending and showing no growth to date, blood cultures x2 showing no growth to date. Urine culture growing gram-negative bacillus. Hemoglobin about the same at 7.6, wound VAC continues to drain serosanguineous fluid. The patient continues on broad-spectrum antibiotics. 11/30 No overnight event or new complaints. Surgical cultures negative thus far. Urine cultures gram-negative bacillus. Hemoglobin stable. Renal function stable. Review of Systems: denies headache/fever/chills/nausea/vomiting/chest or abdominal pain/cough/dyspnea/diarrhea. Otherwise see above. Constitutional Vitals: Vital Signs Temp Pulse Resp BP Pulse Ox 99.6 F H 79 15 123/71 96 11/30/21 07:34 11/30/21 07:34 11/30/21 07:34 11/30/21 07:34 11/30/21 07:34 Period Temp Pulse Resp BP Sys/Murphy Pulse Ox Last 24 Hr 97.2 F-99.6 F 62-89 15-20 123-144/62-71 92-98 Intake and Output 11/29/21 11/30/21 11/30/21 21:59 05:59 13:59 Intake Total 150 1540 100 Output Total 1000 2500 Balance -850 -960 100 Weight 131.287 kg Intake & Output: Intake & Output 11/29/21 11/30/21 11/30/21 21:59 05:59 13:59 Intake Total 150 1540 100 Output Total 1000 2500 Balance -850 -960 100 Weight 131.287 kg Intake: IV 150 100 100 Flagyl 500 mg In Premix 1 Bag @ 100 100 100 100 mls/hr IV Q8H [facility] Rx#: [id number] Oral 1440 Output: Drainage 100 Left Knee 100 Drainage 100 Left Knee 100 Urine Catheter Amount 2400 Void Amount 900 Other: Meal Dinner Percent of Meal Consumed 90 Feeding Ability Independent Urine Appearance Cloudy Mucous Threads Uretheral (Turner) Clear Clear Urine Color Straw Uretheral (Turner) Bright Yellow Bright Yellow Urine Odor Strong Uretheral (Turner) Strong Exam: General: Alert, Awake, No acute Distress, obese Eyes/N/T: EOMI, Head/Neck: neck supple, CV: irreg irreg, 2/6 SM Pulm: Clear b/l, no wheezing/rhonchi/rales Abd: soft, nontender, +BS x4 Ext: no clubbing/cyanosis, b/l LE 1-2+ edema Neuro: Alert, no focal deficits, moves all extremities, Skin: warm/dry OBJ DATA Labs CBC & Chem 7: 11/30/21 05:15 11/30/21 05:15 Labs: Abnormal Lab Results 11/30/21 11/30/21 11/29/21 05:15 05:15 20:27 RBC Hgb 7.4 L Hct 25.4 L MCV MCHC RDW MPV Neut % (Auto) Lymph % (Auto) Freestone % (Auto) Lymph # (Auto) [place]estone # (Auto) Absolute Neutrophils BUN 42 H Creatinine 1.7 H Glucose Uric Acid Calcium Direct Bilirubin Lactate Dehydrogenase Albumin Globulin Albumin/Globulin Ratio Vancomycin Trough 34.8 H* 11/29/21 11/29/21 11/28/21 05:23 05:23 12:06 RBC 2.62 L Hgb 7.6 L 7.9 L Hct 26.5 L MCV 101.1 H MCHC 28.7 L RDW 16.1 H MPV 11.6 H Neut % (Auto) 79.1 H Lymph % (Auto) 6.3 L Freestone % (Auto) 12.1 H Lymph # (Auto) 0.52 L [place]estone # (Auto) 1.00 H Absolute Neutrophils BUN 38 H Creatinine 2.0 H Glucose Uric Acid 10.0 H Calcium 8.5 L Direct Bilirubin Lactate Dehydrogenase Albumin 2.5 L Globulin 4.0 H Albumin/Globulin Ratio 0.6 L Vancomycin Trough 11/28/21 11/28/21 11/27/21 05:35 05:35 05:31 RBC 2.64 L Hgb 7.5 L Hct 27.0 L MCV 102.3 H MCHC 27.8 L RDW 16.3 H MPV 11.4 H Neut % (Auto) 90.9 H Lymph % (Auto) 2.4 L Freestone % (Auto) Lymph # (Auto) 0.23 L [place] # (Auto) Absolute Neutrophils 8.63 H BUN 36 H 30 H Creatinine 1.9 H 1.8 H Glucose 166 H Uric Acid 10.3 H 9.8 H Calcium Direct Bilirubin 0.3 H Lactate Dehydrogenase 234 H Albumin 2.5 L 2.9 L Globulin 3.9 H 4.4 H Albumin/Globulin Ratio 0.6 L 0.7 L Vancomycin Trough Meds: Medications Acetaminophen (Acetaminophen 325 Mg Tablet) 650 mg PO Q6HP PRN; Protocol PRN Reason: Per Pain Protocol/Fever > 101 Last Admin: 11/30/21 03:13 Dose: 650 mg Documented by: Hydrocodone Bitart/Acetaminophen (Hydrocodone/Apap 5/325mg Tablet) 1 tab PO Q4HP PRN; Protocol PRN Reason: Per Pain Protocol Last Admin: 11/30/21 05:25 Dose: 1 tab Documented by: Albuterol Sulfate (Albuterol Sulfate 200 Puff Inhaler) 2 puff INH QIDP PRN PRN Reason: Shortness Of Breath Aspirin (Aspirin 81 Mg Tab.Chew) 81 mg PO DAILY [facility] Last Admin: 11/29/21 08:24 Dose: 81 mg Documented by: Cefepime HCl (Cefepime 2 Gm Vial) 2 gm IV Q12H [facility]; Protocol Last Admin: 11/29/21 21:28 Dose: 2 gm Documented by: Docusate Sodium (Docusate Sodium 100 Mg Capsule) 100 mg PO BID [facility] Last Admin: 11/29/21 21:32 Dose: 100 mg Documented by: Furosemide (Furosemide 40 Mg/4 Ml Vial) 40 mg IV TID [facility] Last Admin: 11/29/21 21:08 Dose: 40 mg Documented by: Heparin Sodium (Porcine) (Heparin 5,000 Unit/Ml Vial) 5,000 unit SQ Q12 [facility] Last Admin: 11/29/21 21:08 Dose: 5,000 unit Documented by: Metronidazole 500 mg/ Premix 100 mls @ 100 mls/hr IV Q8H [facility]; Protocol Last Infusion: 11/30/21 06:30 Dose: Infused Documented by: Ondansetron HCl (Ondansetron 4 Mg/2 Ml Vial) 4 mg IV Q6HP PRN PRN Reason: Nausea And Vomiting Senna (Sennosides 1 Tablet) 2 tab PO HS [facility] Last Admin: 11/29/21 21:08 Dose: 2 tab Documented by: Sodium Chloride (0.9 % Sodium Chloride 10 Ml Syringe) 10 ml IV Q8 [facility] Last Admin: 11/30/21 05:24 Dose: 10 ml Documented by: Tamsulosin HCl (Tamsulosin 0.4 Mg Capsule) 0.4 mg PO QDAY [facility] Last Admin: 11/29/21 08:24 Dose: 0.4 mg Documented by: Vancomycin HCl (Vancomycin Per Pharmacy) 1 order IV UD [facility]; Protocol A/P Narrative A/P Narrative: A: #Likely septic arthritis & SQ Hematoma/Abscess of left knee: s/p I&D & washout (11/27) -No growth #Volume overload: 2/2 HFpEF #acute on chronic HFPEF & Pulmonary hypertension: #COPD w/chronic hypoxia (3 L/min): #h/o Atrial fibrillation, not on anticoagulation & still awaiting pt decision #CKD IIIb: #Macrocytic anemia, acute on chronic: #Obesity: Plan -Orthopedic surgery following -Vancomycin/Cefepime/Flagyl -deescalate. MRSA screen neg. IV abx for at least 2-wks followed by 1-2wks oral therapy, will defer to orthopedics. Will treat with Vanco vs Rocephin for 2-weeks and let ortho determine treatment from that point. -Lasix 40 mg IV TID for now; Monitor renal function, electrolytes and volume status. -Holding home torsemide for now. -Not a candidate for anticoagulation given hematoma left knee and wound VAC draining bloody fluid -cont home ASA -PT consult -Wound VAC management. -Oxygen supplementation. -Remove Turner catheter after diuresis. -Disposition: Probably SNF for rehab, wound care, possibly IV antibiotics. 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
[2021-11-30] MEDS: HEPARIN 5,000 UNIT/ML VIAL SQ SCH ×2 (08:17→21:08)
[2021-11-30] MEDS: TAMSULOSIN 0.4 MG CAPSULE PO SCH (08:17)
[2021-11-30] MEDS: CEFEPIME 2 GM VIAL IV SCH (08:17)
[2021-11-30] MEDS: DOCUSATE SODIUM 100 MG CAPSULE PO SCH ×2 (08:17→21:09)
[2021-11-30] MEDS: ASPIRIN 81 MG TAB.CHEW PO SCH (08:17)
[2021-11-30] MEDS: FUROSEMIDE 40 MG/4 ML VIAL IV SCH ×3 (08:17→21:09)
[2021-11-30] MEDS ORDERED: morphine 2 MG/ML VIAL IV PRN (08:23)
[2021-11-30] MEDS ORDERED: ALBUMIN HUMAN 12.5 GM/50 ML BAG IV ONE (08:25)
[2021-11-30] MEDS ORDERED: 0.9 % SODIUM CHLORIDE 10 ML SYRINGE IV PRN (09:47)
[2021-11-30] MEDS: cefTAZidime 1 GM VIAL IV SCH (21:08)
[2021-11-30] MEDS: SENNOSIDES 1 TABLET PO SCH (21:09)
[2021-12-01 00:29] LABS: Appearance,Urine HAZY (Clear); Bilirubin,Urine Negative (Negative); Color,Urine STRAW; Culture Indicated,Urine yes; Glucose,Urine (UA) Negative (Negative); Ketones,Urine Negative (Negative); Leukocyte Esterase,Urine 500 /uL (Negative); Mucus,Urine FEW /hpf; Nitrate,Urine Negative (Negative); Protein,Urine Negative (Negative); Specific Gravity,Urine 1.005 (1.000-1.035); Urine Blood 0.03 mg/dL (Negative); Urine Hyaline Cast 8 /lph (0-2); Urine RBC 4 /hpf (0-3); Urine Squamous Epithelial Cell 1 /hpf (0-4); Urine Transitional Epi Cells 1 /hpf (0-2); Urine WBC 64 /hpf (0-4); Urobilinogen,Urine Negative
[2021-12-01] MEDS: metroNIDAZOLE 500 MG in PREMIX 1 BAG IV SCH (05:51)
[2021-12-01] MEDS: 0.9 % SODIUM CHLORIDE 10 ML SYRINGE IV SCH ×2 (05:51→10:28)
[2021-12-01] MEDS: HYDROcodone/APAP 5/325MG TABLET PO PRN (07:00)
[2021-12-01 07:47] LABS: Hematocrit 27.5 % (40.1-51.0)
[2021-12-01 07:50] LABS: Blood Urea Nitrogen 42 mg/dL (8-23); Calcium 9.1 mg/dL (8.6-10.4); Carbon Dioxide 27 mmol/L (22-30); Chloride 97 mmol/L (96-108); Glomerular Filtration Rate 44; Glucose 97 mg/dL (70-105)
[2021-12-01 07:53] LABS: Vancomycin,Random 26.3 ug/mL
[2021-12-01] MEDS ORDERED: POTASSIUM CHLORIDE 20 MEQ TABLET PO ONE (08:00)
[2021-12-01] MEDS: cefTAZidime 1 GM VIAL IV SCH (09:41)
[2021-12-01] MEDS: ASPIRIN 81 MG TAB.CHEW PO SCH (09:42)
[2021-12-01] MEDS: FUROSEMIDE 40 MG/4 ML VIAL IV SCH (09:42)
[2021-12-01] MEDS: TAMSULOSIN 0.4 MG CAPSULE PO SCH (09:42)
[2021-12-01] MEDS: HEPARIN 5,000 UNIT/ML VIAL SQ SCH (09:42)
[2021-12-01] MEDS: DOCUSATE SODIUM 100 MG CAPSULE PO SCH (09:43)
== END 2021-12-01 12:15 | DRG 463 ==
LOC: MEDSUR 21:28
PROVIDERS: ADMIT Internal Medicine; ATTEND Internal Medicine

== ENCOUNTER 2023-01-29 16:24 | Inpatient (IN) ==
[2023-01-29] MEDS ORDERED: IOPAMIDOL 100 ML BOTTLE IV ONE (16:25)
--- NOTE | 2023-01-29 16:38 | Emergency Department Note ---
HPI General Chief complaint: Shortness of Breath/Dyspnea Stated complaint: Shortness of Breath Time Seen by Provider: 01/29/23 16:26 Source: patient Mode of arrival: ambulatory Limitations: no limitations History of Present Illness HPI Narrative: Narrative: Patient is a 77-year-old male with a history significant for COPD and heart failure presents to the emergency department due to shortness of breath and hypoxia. Patient states that he was short of breath prior to arrival, but states that with oxygen on he feels much better. He denies any symptoms at this time. After I evaluated the patient patient did tell his nurse that he was told that he had a fever prior to arrival. Related Data Home Medications Medication Instructions Recorded Confirmed albuterol sulfate 90 mcg/actuation 2 puff inhalation QID PRN 11/27/21 01/30/23 aerosol inhaler (ProAir HFA) Shortness Of Breath tamsulosin 0.4 mg capsule (Flomax) 0.4 mg PO QDAY 11/27/21 01/30/23 hydrocodone 10 mg-acetaminophen 1 tab PO Q8H PRN Pain 01/15/22 01/30/23 325 mg tablet magnesium hydroxide 400 mg/5 mL 30 ml PO QDAY PRN constipation 01/15/22 01/30/23 oral suspension (Milk of Magnesia) metoprolol tartrate 25 mg tablet 25 mg PO BID 01/15/22 01/30/23 potassium chloride 20 mEq 10 meq PO QDAY 01/15/22 01/30/23 tablet,extended release sodium phosphates 19 gram-7 118 ml VT PRN PRN Constipation 01/15/22 01/30/23 gram/118 mL enema (Fleet Enema) omeprazole 40 mg PO BID 05/18/22 01/30/23 aspirin 81 mg tablet 81 mg PO QDAY 01/30/23 01/30/23 oxycodone 5 mg tablet 5 mg PO Q4HP PRN pain 01/30/23 01/30/23 torsemide 20 mg tablet 20 mg PO BID 01/30/23 01/30/23 Previous Rx's Medication Instructions Recorded apixaban 5 mg tablet (Eliquis) 5 mg PO BID #60 tabs 02/03/23 Allergies Allergy/AdvReac Type Severity Reaction Status Date / Time bee venom protein (honey bee) Allergy Severe Anaphylaxis Verified 05/18/22 14:57 [place] AdvReac Intermediate Hives Verified 05/18/22 14:57 codeine AdvReac Mild Vomiting Verified 05/18/22 14:57 tramadol AdvReac Mild Vomiting Verified 05/18/22 14:57 Review of Systems ROS ROS Narrative: Narrative: Constitutional: Reports fever; Denies weakness Eyes: Denies eye pain or vision change ENT ED: Denies throat pain or rhinorrhea Cardiovascular: Denies chest pain, dyspnea on exertion, orthopnea or edema Respiratory: Reports shortness of breath; Denies cough Gastrointestinal: Denies abdominal pain, nausea, vomiting, diarrhea, constipation, hematochezia or melena Genitourinary: Denies dysuria, frequency or hematuria Musculoskeletal: Denies back pain or myalgia Integumentary: Denies rash or lesions Neurological: Denies headache, weakness, numbness, confusion, abnormal gait or dizziness PFSH Narrative Patient History Narrative: Narrative: Medical/Surgical/Family History All Active Problems (Updated 01/30/23 @ 02:42 by Aditya New MD) Acute exacerbation of CHF (congestive heart failure) (Acute) Acute hypercapnic respiratory failure (Acute) Social History Smoking Status: Former smoker Exam Narrative Narrative: Narrative: General Limitations: no limitations General appearance: Present alert and in no apparent distress; Absent anxious, appears intoxicated or sleepy Head Head: Present atraumatic and normocephalic Eye Eye: Present EOMI; Absent scleral icterus or nystagmus ENT ENT: Present mucous membranes moist; Absent nasal congestion Neck Neck: Present full ROM and trachea midline Chest Chest: Present normal inspection and symmetric chest wall rise Respiratory Respiratory: Present normal lung sounds bilaterally; Absent respiratory distress or accessory muscle use Cardiovascular Cardiovascular: Present normal rhythm, tachycardia and normal heart sounds Adbominal Abdominal: Present soft and normal bowel sounds; Absent distention, tenderness, guarding, rebound or rigidity Extremities Extremities: Present normal inspection and full ROM; Absent tenderness, pedal edema or pretibial edema Back Back: Present normal inspection and full ROM Neurological Neurological: Present alert and oriented X3 Psychiatric Psychiatric: Present normal affect and normal mood Skin Skin: Present warm (WNL), dry and normal color Course Vital Signs Vital signs: Vital Signs Pulse Rate 124 H 01/29/23 16:25 Respiratory Rate 32 H 01/29/23 16:25 Blood Pressure 124/70 01/29/23 16:25 Pulse Oximetry (%) 65 L 05/13/23 16:25 Oxygen Delivery Method Room Air 01/29/23 16:25 Temperature 99.0 F 02/05/23 00:04 Pulse Rate 75 02/05/23 01:09 Respiratory Rate 20 02/05/23 01:09 Blood Pressure 98/55 02/05/23 01:09 Pulse Oximetry (%) 96 02/05/23 01:09 Oxygen Delivery Method BiPAP 02/05/23 01:09 Oxygen Flow Rate (L/min) 4 02/04/23 19:36 MDM MDM Narrative Medical decision making narrative: Narrative: Patient is a 77-year-old male who presents to the emergency department due to shortness of breath. Differential diagnoses include ACS, CHF, pneumonia, dysrhythmia, and pulmonary embolus. Patient has a white blood cell count of 16.4, BNP of 15,000, and an elevated D- dimer. Patient has been given a dose of furosemide. Because D-dimer is elevated a CT angio has been ordered. Patient has been signed out to Dr. New pending CT angio read. Lab Data 02/02/23 05:32 02/04/23 17:15 Labs: Lab Results 01/29/23 01/29/23 01/29/23 Range/Units 17:17 17:19 17:33 WBC (4.5-11.0) K/mcL RBC (4.63-6.08) M/mcL Hgb (13.7-17.5) g/dL Hct (40.1-51.0) % POC Hct 34.0 L (41-55) MCV (80.0-100.0) fL MCH (26.0-34.0) pg MCHC (31.0-36.0) g/dL RDW (11.5-14.5) % Plt Count (140-440) K/mcL MPV (8.8-12.5) fL Immature Gran % (Auto) (0.0-0.5) % Neut % (Auto) (38.0-78.0) % Lymph % (Auto) (15.5-49.0) % [place] % (Auto) (1.0-12.0) % Eos % (Auto) (0.0-7.0) % Baso % (Auto) (0.0-2.0) % Lymph # (Auto) (1.50-4.80) K/mcL [place] # (Auto) (0.10-0.90) K/mcL Eos # (Auto) (0.00-0.70) K/mcL Baso # (Auto) (0.00-0.30) K/mcL Immature Gran # (0.00-0.05) K/mcl Absolute Neutrophils (1.80-8.00) K/mcL D-Dimer 2.49 H (0.27-0.50) ug/mL POC pH (7.35-7.45) POC pCO2 (35-45) mmHg POC pO2 (80-100) mmHg POC HCO3 (22-26) mmHg POC ABG Base Excess (-2-3) ABG Lactic Acid (0.5-2) POC VBG pH (7.32-7.42) POC VBG pCO2 at Temp (41-51) POC VBG pO2 (25-40) POC VBG HCO3 (24-28) POC VBG Total CO2 (25-29) POC Venous O2 Sat (40-70) POC VBG Base Excess (-2-2) VBG Lactic Acid (0.5-2) Hgb O2 Saturation (94-97) POC Sodium 139 (133-145) POC Potassium 4.7 (3.3-5.1) POC Chloride 100 (96-108) POC Total CO2 32.0 H (22-30) POC BUN 30 H (6-20) POC Creatinine 1.5 H (0.6-1.2) POC Glucose 137 H (70-105) POC WB Ioniz Calcium 1.11 L (1.16-1.32) NT-Pro-B Natriuret Pep (<450.0) pg/mL Procalcitonin (<0.10) ng/mL Urine Color Urine Appearance (Clear) Urine pH (5.0-9.0) Ur Specific [place] (1.000-1.035) Urine Protein (Negative) mg/dL Urine Glucose (UA) (Negative) mg/dL Urine Ketones (Negative) mg/dL Urine Occult Blood (Negative) mg/dL Urine Nitrate (Negative) Urine Bilirubin (Negative) mg/dL Urine Urobilinogen mg/dL Ur Leukocyte Esterase (Negative) /uL Urine RBC (0-3) /hpf Urine WBC (0-4) /hpf Ur Squamous Epith Cells (0-4) /hpf Urine Bacteria (0) /hpf Hyaline Casts (0-2) /lph Urine Mucus (None) /hpf Ur Culture Indicated? POC Troponin I 0.02 (0.00-0.08) 01/29/23 01/29/23 01/29/23 Range/Units 17:34 17:35 17:35 WBC 16.4 H (4.5-11.0) K/mcL RBC 3.29 L (4.63-6.08) M/mcL Hgb 8.5 L (13.7-17.5) g/dL Hct 31.0 L (40.1-51.0) % POC Hct (41-55) MCV 94.2 (80.0-100.0) fL MCH 25.8 L (26.0-34.0) pg MCHC 27.4 L (31.0-36.0) g/dL RDW 21.2 H (11.5-14.5) % Plt Count 243 (140-440) K/mcL MPV 11.6 (8.8-12.5) fL Immature Gran % (Auto) 0.6 H (0.0-0.5) % Neut % (Auto) 92.3 H (38.0-78.0) % Lymph % (Auto) 0.9 L (15.5-49.0) % [place] % (Auto) 6.0 (1.0-12.0) % Eos % (Auto) 0 (0.0-7.0) % Baso % (Auto) 0.2 (0.0-2.0) % Lymph # (Auto) 0.15 L (1.50-4.80) K/mcL [place] # (Auto) 0.98 H (0.10-0.90) K/mcL Eos # (Auto) 0 (0.00-0.70) K/mcL Baso # (Auto) 0.03 (0.00-0.30) K/mcL Immature Gran # 0.10 H (0.00-0.05) K/mcl Absolute Neutrophils 15.10 H (1.80-8.00) K/mcL D-Dimer (0.27-0.50) ug/mL POC pH (7.35-7.45) POC pCO2 (35-45) mmHg POC pO2 (80-100) mmHg POC HCO3 (22-26) mmHg POC ABG Base Excess (-2-3) ABG Lactic Acid (0.5-2) POC VBG pH (7.32-7.42) POC VBG pCO2 at Temp (41-51) POC VBG pO2 (25-40) POC VBG HCO3 (24-28) POC VBG Total CO2 (25-29) POC Venous O2 Sat (40-70) POC VBG Base Excess (-2-2) VBG Lactic Acid (0.5-2) Hgb O2 Saturation (94-97) POC Sodium (133-145) POC Potassium (3.3-5.1) POC Chloride (96-108) POC Total CO2 (22-30) POC BUN (6-20) POC Creatinine (0.6-1.2) POC Glucose (70-105) POC WB Ioniz Calcium (1.16-1.32) NT-Pro-B Natriuret Pep 99815.0 H (<450.0) pg/mL Procalcitonin 0.25 H (<0.10) ng/mL Urine Color Urine Appearance (Clear) Urine pH (5.0-9.0) Ur Specific [place] (1.000-1.035) Urine Protein (Negative) mg/dL Urine Glucose (UA) (Negative) mg/dL Urine Ketones (Negative) mg/dL Urine Occult Blood (Negative) mg/dL Urine Nitrate (Negative) Urine Bilirubin (Negative) mg/dL Urine Urobilinogen mg/dL Ur Leukocyte Esterase (Negative) /uL Urine RBC (0-3) /hpf Urine WBC (0-4) /hpf Ur Squamous Epith Cells (0-4) /hpf Urine Bacteria (0) /hpf Hyaline Casts (0-2) /lph Urine Mucus (None) /hpf Ur Culture Indicated? POC Troponin I (0.00-0.08) 01/29/23 01/29/23 01/29/23 Range/Units 18:30 18:37 22:01 WBC (4.5-11.0) K/mcL RBC (4.63-6.08) M/mcL Hgb (13.7-17.5) g/dL Hct (40.1-51.0) % POC Hct (41-55) MCV (80.0-100.0) fL MCH (26.0-34.0) pg MCHC (31.0-36.0) g/dL RDW (11.5-14.5) % Plt Count (140-440) K/mcL MPV (8.8-12.5) fL Immature Gran % (Auto) (0.0-0.5) % Neut % (Auto) (38.0-78.0) % Lymph % (Auto) (15.5-49.0) % [place] % (Auto) (1.0-12.0) % Eos % (Auto) (0.0-7.0) % Baso % (Auto) (0.0-2.0) % Lymph # (Auto) (1.50-4.80) K/mcL [place] # (Auto) (0.10-0.90) K/mcL Eos # (Auto) (0.00-0.70) K/mcL Baso # (Auto) (0.00-0.30) K/mcL Immature Gran # (0.00-0.05) K/mcl Absolute Neutrophils (1.80-8.00) K/mcL D-Dimer (0.27-0.50) ug/mL POC pH 7.32 L (7.35-7.45) POC pCO2 61.0 H* (35-45) mmHg POC pO2 91 (80-100) mmHg POC HCO3 31.4 H (22-26) mmHg POC ABG Base Excess 5.0 H (-2-3) ABG Lactic Acid 0.6 (0.5-2) POC VBG pH 7.28 L (7.32-7.42) POC VBG pCO2 at Temp 71.2 H* (41-51) POC VBG pO2 67 H (25-40) POC VBG HCO3 33.8 H (24-28) POC VBG Total CO2 36.0 H (25-29) POC Venous O2 Sat 89.0 H (40-70) POC VBG Base Excess 7.0 H* (-2-2) VBG Lactic Acid 0.5 (0.5-2) Hgb O2 Saturation 96.0 (94-97) POC Sodium (133-145) POC Potassium (3.3-5.1) POC Chloride (96-108) POC Total CO2 33.0 H (22-30) POC BUN (6-20) POC Creatinine (0.6-1.2) POC Glucose (70-105) POC WB Ioniz Calcium (1.16-1.32) NT-Pro-B Natriuret Pep (<450.0) pg/mL Procalcitonin (<0.10) ng/mL Urine Color Yellow Urine Appearance Turbid A (Clear) Urine pH 5.0 (5.0-9.0) Ur Specific [place] 1.014 (1.000-1.035) Urine Protein 100 A (Negative) mg/dL Urine Glucose (UA) Negative (Negative) mg/dL Urine Ketones Negative (Negative) mg/dL Urine Occult Blood Negative (Negative) mg/dL Urine Nitrate Negative (Negative) Urine Bilirubin Negative (Negative) mg/dL Urine Urobilinogen 2.0 A mg/dL Ur Leukocyte Esterase 500 A (Negative) /uL Urine RBC 16 H (0-3) /hpf Urine WBC > 182 H (0-4) /hpf Ur Squamous Epith Cells 3 (0-4) /hpf Urine Bacteria Many A (0) /hpf Hyaline Casts 14 H (0-2) /lph Urine Mucus Mod A (None) /hpf Ur Culture Indicated? yes POC Troponin I (0.00-0.08) EKG Data EKG #1: EKG attestation: Yes I reviewed and interpreted this EKG. EKG results narrative: Atrial fibrillation with a rate of 139, left axis deviation, QRS of 102, QTc of 473, T wave flattening in lead III, absence of ST elevation or depression. Discharge Plan Patient/Caregiver Discharge Instructions Pt seen by TREE SCOUT/PA only: No Clinical Impression: Acute exacerbation of CHF (congestive heart failure), Acute hypercapnic respiratory failure Activity: resume usual activities as tolerated Patient Disposition: Xfer As Inpt ([facility]) Condition: Fair Discharge Date/Time: 01/30/23 00:48 Discharge Comment: to ICU 118
[2023-01-29] MEDS ORDERED: VANCOMYCIN 2,000 MG in 0.9 % SODIUM CHLORIDE 500 ML IV ONE (17:10)
[2023-01-29] MEDS ORDERED: CEFEPIME 1 GM VIAL IV ONE (17:10)
[2023-01-29 17:20] LABS: POC Calcium, Ionized 1.11 (1.16-1.32); POC Creatinine 1.5 (0.6-1.2); POC Potassium 4.7 (3.3-5.1)
[2023-01-29] MEDS ORDERED: NITROGLYCERIN 0.4 MG TAB.SUBL SL ONE (17:27)
[2023-01-29] MEDS ORDERED: FUROSEMIDE 100 MG/10 ML VIAL IV ONE (17:27)
[2023-01-29 18:20] LABS: Basophils # (Auto) 0.03 K/mcL (0.00-0.30); Basophils % (Auto) 0.2 % (0.0-2.0); Eosinophils # (Auto) 0 K/mcL (0.00-0.70); Eosinophils % (Auto) 0 % (0.0-7.0); Hemoglobin 8.5 g/dL (13.7-17.5); Lymphocytes # (Auto) 0.15 K/mcL (1.50-4.80); Lymphocytes % (Auto) 0.9 % (15.5-49.0); Mean Cell Volume 94.2 fL (80.0-100.0); Mean Corpuscular HGB Conc 27.4 g/dL (31.0-36.0); Mean Platelet Volume 11.6 fL (8.8-12.5); Monocytes # (Auto) 0.98 K/mcL (0.10-0.90); Neutrophils % (Auto) 92.3 % (38.0-78.0); Platelet Count 243 K/mcL (140-440); RBC 3.29 M/mcL (4.63-6.08); Red Cell Distribution Width 21.2 % (11.5-14.5); WBC 16.4 K/mcL (4.5-11.0)
--- NOTE | 2023-01-29 18:45 | XRay Report ---
CLINICAL INFORMATION: SOB, hypoxia COMPARISON: 11/28/2022 FINDINGS: Moderate cardiomegaly has increased. Mediastinum shows mild widening. Marked elevation right diaphragm seen as before. Large region of densely consolidated atelectasis or, less likely infiltrate is seen in the left lower lobe. The left pleural effusion noted.. Moderate right basilar infiltrate or atelectasis also noted. Pulmonary vessels are mildly distended. IMPRESSION: Mild CHF. Marked chronic elevation right diaphragm. Large region of densely consolidated atelectasis or, less likely, infiltrate left lower lobe with moderate left pleural effusion. Moderate right basilar atelectasis or infiltrate also has developed. Consider aspiration Interpreted and Authenticated by: Georgi Kumari 01/29/23
[2023-01-29 22:10] LABS: Appearance,Urine TURBID (Clear); Bacteria,Urine MANY /hpf (0); Bilirubin,Urine Negative (Negative); Color,Urine Yellow; Culture Indicated,Urine yes; Glucose,Urine (UA) Negative (Negative); Ketones,Urine Negative (Negative); Leukocyte Esterase,Urine 500 /uL (Negative); Mucus,Urine MOD /hpf; Nitrate,Urine Negative (Negative); Protein,Urine 100 mg/dL (Negative); Specific Gravity,Urine 1.014 (1.000-1.035); Urine Blood Negative (Negative); Urine Hyaline Cast 14 /lph (0-2); Urine RBC 16 /hpf (0-3); Urine Squamous Epithelial Cell 3 /hpf (0-4); Urine WBC > 182 /hpf (0-4)
[2023-01-30] MEDS ORDERED: ACETAMINOPHEN 325 MG TABLET PO PRN (00:04)
[2023-01-30] MEDS ORDERED: ONDANSETRON 4 MG/2 ML VIAL IV PRN (00:04)
--- NOTE | 2023-01-30 00:09 | Emergency Department Note ---
Course Vital Signs Vital signs: Vital Signs Pulse Rate 124 H 01/29/23 16:25 Respiratory Rate 32 H 01/29/23 16:25 Blood Pressure 124/70 01/29/23 16:25 Pulse Oximetry (%) 65 L 01/29/23 16:25 Oxygen Delivery Method Room Air 01/29/23 16:25 Temperature 97.7 F 01/30/23 01:00 Pulse Rate 66 01/30/23 01:41 Respiratory Rate 19 01/30/23 01:41 Blood Pressure 107/62 01/30/23 01:01 Pulse Oximetry (%) 97 01/30/23 01:41 Oxygen Delivery Method BiPAP 01/30/23 01:01 Oxygen Flow Rate (L/min) 8 01/29/23 18:06 MDM MDM Narrative Medical decision making narrative: Narrative: Patient signed out to me pending CTA chest for elevated D-dimer. Patient presents with symptoms of CHF exacerbation. Patient was given 60 mg of IV L asix. CT scan shows no filling defect to suggest pulmonary embolism. There is findings of intralobular septal thickening and interstitial prominence with associated mild diffuse hazy groundglass opacification consistent with congestive changes. I have spoke with the hospitalist who has agreed to admit the patient. An ABG was repeated patient's PCO2 is downtrending pH is also improving. Lab Data 01/29/23 17:35 Labs: Lab Results 01/29/23 01/29/23 01/29/23 Range/Units 17:17 17:19 17:33 WBC (4.5-11.0) K/mcL RBC (4.63-6.08) M/mcL Hgb (13.7-17.5) g/dL Hct (40.1-51.0) % POC Hct 34.0 L (41-55) MCV (80.0-100.0) fL MCH (26.0-34.0) pg MCHC (31.0-36.0) g/dL RDW (11.5-14.5) % Plt Count (140-440) K/mcL MPV (8.8-12.5) fL Immature Gran % (Auto) (0.0-0.5) % Neut % (Auto) (38.0-78.0) % Lymph % (Auto) (15.5-49.0) % [place] % (Auto) (1.0-12.0) % Eos % (Auto) (0.0-7.0) % Baso % (Auto) (0.0-2.0) % Lymph # (Auto) (1.50-4.80) K/mcL [place] # (Auto) (0.10-0.90) K/mcL Eos # (Auto) (0.00-0.70) K/mcL Baso # (Auto) (0.00-0.30) K/mcL Immature Gran # (0.00-0.05) K/mcl Absolute Neutrophils (1.80-8.00) K/mcL D-Dimer 2.49 H (0.27-0.50) ug/mL POC pH (7.35-7.45) POC pCO2 (35-45) mmHg POC pO2 (80-100) mmHg POC HCO3 (22-26) mmHg POC ABG Base Excess (-2-3) ABG Lactic Acid (0.5-2) POC VBG pH (7.32-7.42) POC VBG pCO2 at Temp (41-51) POC VBG pO2 (25-40) POC VBG HCO3 (24-28) POC VBG Total CO2 (25-29) POC Venous O2 Sat (40-70) POC VBG Base Excess (-2-2) VBG Lactic Acid (0.5-2) Hgb O2 Saturation (94-97) POC Sodium 139 (133-145) POC Potassium 4.7 (3.3-5.1) POC Chloride 100 (96-108) POC Total CO2 32.0 H (22-30) POC BUN 30 H (6-20) POC Creatinine 1.5 H (0.6-1.2) POC Glucose 137 H (70-105) POC WB Ioniz Calcium 1.11 L (1.16-1.32) NT-Pro-B Natriuret Pep (<450.0) pg/mL Procalcitonin (<0.10) ng/mL Urine Color Urine Appearance (Clear) Urine pH (5.0-9.0) Ur Specific [place] (1.000-1.035) Urine Protein (Negative) mg/dL Urine Glucose (UA) (Negative) mg/dL Urine Ketones (Negative) mg/dL Urine Occult Blood (Negative) mg/dL Urine Nitrate (Negative) Urine Bilirubin (Negative) mg/dL Urine Urobilinogen mg/dL Ur Leukocyte Esterase (Negative) /uL Urine RBC (0-3) /hpf Urine WBC (0-4) /hpf Ur Squamous Epith Cells (0-4) /hpf Urine Bacteria (0) /hpf Hyaline Casts (0-2) /lph Urine Mucus (None) /hpf Ur Culture Indicated? POC Troponin I 0.02 (0.00-0.08) 01/29/23 01/29/23 01/29/23 Range/Units 17:34 17:35 17:35 WBC 16.4 H (4.5-11.0) K/mcL RBC 3.29 L (4.63-6.08) M/mcL Hgb 8.5 L (13.7-17.5) g/dL Hct 31.0 L (40.1-51.0) % POC Hct (41-55) MCV 94.2 (80.0-100.0) fL MCH 25.8 L (26.0-34.0) pg MCHC 27.4 L (31.0-36.0) g/dL RDW 21.2 H (11.5-14.5) % Plt Count 243 (140-440) K/mcL MPV 11.6 (8.8-12.5) fL Immature Gran % (Auto) 0.6 H (0.0-0.5) % Neut % (Auto) 92.3 H (38.0-78.0) % Lymph % (Auto) 0.9 L (15.5-49.0) % [place] % (Auto) 6.0 (1.0-12.0) % Eos % (Auto) 0 (0.0-7.0) % Baso % (Auto) 0.2 (0.0-2.0) % Lymph # (Auto) 0.15 L (1.50-4.80) K/mcL [place] # (Auto) 0.98 H (0.10-0.90) K/mcL Eos # (Auto) 0 (0.00-0.70) K/mcL Baso # (Auto) 0.03 (0.00-0.30) K/mcL Immature Gran # 0.10 H (0.00-0.05) K/mcl Absolute Neutrophils 15.10 H (1.80-8.00) K/mcL D-Dimer (0.27-0.50) ug/mL POC pH (7.35-7.45) POC pCO2 (35-45) mmHg POC pO2 (80-100) mmHg POC HCO3 (22-26) mmHg POC ABG Base Excess (-2-3) ABG Lactic Acid (0.5-2) POC VBG pH (7.32-7.42) POC VBG pCO2 at Temp (41-51) POC VBG pO2 (25-40) POC VBG HCO3 (24-28) POC VBG Total CO2 (25-29) POC Venous O2 Sat (40-70) POC VBG Base Excess (-2-2) VBG Lactic Acid (0.5-2) Hgb O2 Saturation (94-97) POC Sodium (133-145) POC Potassium (3.3-5.1) POC Chloride (96-108) POC Total CO2 (22-30) POC BUN (6-20) POC Creatinine (0.6-1.2) POC Glucose (70-105) POC WB Ioniz Calcium (1.16-1.32) NT-Pro-B Natriuret Pep 17548.0 H (<450.0) pg/mL Procalcitonin 0.25 H (<0.10) ng/mL Urine Color Urine Appearance (Clear) Urine pH (5.0-9.0) Ur Specific [place] (1.000-1.035) Urine Protein (Negative) mg/dL Urine Glucose (UA) (Negative) mg/dL Urine Ketones (Negative) mg/dL Urine Occult Blood (Negative) mg/dL Urine Nitrate (Negative) Urine Bilirubin (Negative) mg/dL Urine Urobilinogen mg/dL Ur Leukocyte Esterase (Negative) /uL Urine RBC (0-3) /hpf Urine WBC (0-4) /hpf Ur Squamous Epith Cells (0-4) /hpf Urine Bacteria (0) /hpf Hyaline Casts (0-2) /lph Urine Mucus (None) /hpf Ur Culture Indicated? POC Troponin I (0.00-0.08) 01/29/23 01/29/23 01/29/23 Range/Units 18:30 18:37 22:01 WBC (4.5-11.0) K/mcL RBC (4.63-6.08) M/mcL Hgb (13.7-17.5) g/dL Hct (40.1-51.0) % POC Hct (41-55) MCV (80.0-100.0) fL MCH (26.0-34.0) pg MCHC (31.0-36.0) g/dL RDW (11.5-14.5) % Plt Count (140-440) K/mcL MPV (8.8-12.5) fL Immature Gran % (Auto) (0.0-0.5) % Neut % (Auto) (38.0-78.0) % Lymph % (Auto) (15.5-49.0) % [place] % (Auto) (1.0-12.0) % Eos % (Auto) (0.0-7.0) % Baso % (Auto) (0.0-2.0) % Lymph # (Auto) (1.50-4.80) K/mcL [place] # (Auto) (0.10-0.90) K/mcL Eos # (Auto) (0.00-0.70) K/mcL Baso # (Auto) (0.00-0.30) K/mcL Immature Gran # (0.00-0.05) K/mcl Absolute Neutrophils (1.80-8.00) K/mcL D-Dimer (0.27-0.50) ug/mL POC pH 7.32 L (7.35-7.45) POC pCO2 61.0 H* (35-45) mmHg POC pO2 91 (80-100) mmHg POC HCO3 31.4 H (22-26) mmHg POC ABG Base Excess 5.0 H (-2-3) ABG Lactic Acid 0.6 (0.5-2) POC VBG pH 7.28 L (7.32-7.42) POC VBG pCO2 at Temp 71.2 H* (41-51) POC VBG pO2 67 H (25-40) POC VBG HCO3 33.8 H (24-28) POC VBG Total CO2 36.0 H (25-29) POC Venous O2 Sat 89.0 H (40-70) POC VBG Base Excess 7.0 H* (-2-2) VBG Lactic Acid 0.5 (0.5-2) Hgb O2 Saturation 96.0 (94-97) POC Sodium (133-145) POC Potassium (3.3-5.1) POC Chloride (96-108) POC Total CO2 33.0 H (22-30) POC BUN (6-20) POC Creatinine (0.6-1.2) POC Glucose (70-105) POC WB Ioniz Calcium (1.16-1.32) NT-Pro-B Natriuret Pep (<450.0) pg/mL Procalcitonin (<0.10) ng/mL Urine Color Yellow Urine Appearance Turbid A (Clear) Urine pH 5.0 (5.0-9.0) Ur Specific [place] 1.014 (1.000-1.035) Urine Protein 100 A (Negative) mg/dL Urine Glucose (UA) Negative (Negative) mg/dL Urine Ketones Negative (Negative) mg/dL Urine Occult Blood Negative (Negative) mg/dL Urine Nitrate Negative (Negative) Urine Bilirubin Negative (Negative) mg/dL Urine Urobilinogen 2.0 A mg/dL Ur Leukocyte Esterase 500 A (Negative) /uL Urine RBC 16 H (0-3) /hpf Urine WBC > 182 H (0-4) /hpf Ur Squamous Epith Cells 3 (0-4) /hpf Urine Bacteria Many A (0) /hpf Hyaline Casts 14 H (0-2) /lph Urine Mucus Mod A (None) /hpf Ur Culture Indicated? yes POC Troponin I (0.00-0.08) Discharge Plan Patient/Caregiver Discharge Instructions Pt seen by DISTANCE LEARNING PROGRAM COORDINATOR/PA only: No Clinical Impression: Acute exacerbation of CHF (congestive heart failure), Acute hypercapnic respiratory failure Activity: resume usual activities as tolerated Patient Disposition: Xfer As Inpt ([facility]) Condition: Fair Discharge Date/Time: 01/30/23 00:48 Discharge Comment: to ICU 118
[2023-01-30] MEDS: 0.9 % SODIUM CHLORIDE 10 ML SYRINGE IV SCH ×6 (01:48→21:44)
--- NOTE | 2023-01-30 05:02 | Cat Scan Report ---
CLINICAL INFORMATION: Dyspnea COMPARISON: Chest x-ray 01/29/2023 TECHNIQUE: 80ml of Isovue-370 were injected intravenously. Using SmartPrep to maximize pulmonary artery opacification, .625mm helical slices were obtained from the lung apices through the lung bases. Following reconstruction, 2.5 mm sagittal, coronal, and axial reformations were processed. The exam was reviewed at mediastinal, lung, and bone windows. The exam was performed using radiation dose optimization techniques including, but not limited to, automated exposure control, adjustment of the mA and/or kV according to patient size and use of iterative reconstruction technique. FINDINGS: Pulmonary parenchymal windows show minimal edema in the interlobular septa and scattered groundglass airspace disease. Large bilateral pleural effusions results in complete compressive atelectasis of both lower lobes and subsegmental atelectasis posterior upper lobes. Mediastinal windows show show moderate cardiomegaly with scattered calcific plaque in the coronary arteries. Intimal calcification seen in the aortic valve. The pulmonary arteries are moderately congested, but there is no evidence of pulmonary emboli. Thoracic aorta is normal diameter with minimal intimal thickening. There is no adenopathy in the mediastinal hilar or axillary regions. The esophagus is grossly normal. Thyroid is unremarkable. Bone windows show no osseous abnormality within the chest. IMPRESSION: 1. No evidence of pulmonary embolus. 2. Mild congestive heart failure 3. Large bilateral pleural effusions resulting in complete compressive atelectasis of both lower lobes with subsegmental atelectasis posterior upper lobes. Interpreted and Authenticated by: Georgi Kumari 01/30/23
--- NOTE | 2023-01-30 05:32 | Cat Scan Report ---
CLINICAL INFORMATION: Abdominal pain COMPARISON: Abdomen and pelvic CT 01/09/2018 and 11/28/2022 TECHNIQUE: Following enteric contrast, 80 cc of Isovue-[id number] were injected intravenously, and 60 seconds later, 0.625 mm helical slices were obtained from the mid heart through the subtrochanteric regions. Following reconstruction, 2.5 mm sagittal, coronal and axial reformatted images were processed and reviewed at bone, lung and soft tissue windows. Five minutes later, 0.625 mm helical slices were obtained from the mid heart through the kidneys and viewed at soft tissue windows.The exam was performed using radiation dose optimization techniques including, but not limited to, automated exposure control, adjustment of the mA and/or kV according to patient size and use of iterative reconstruction technique. FINDINGS: The lung bases show large bilateral pleural effusions resulting in complete compressive atelectasis of both lower lobes. The heart is mildly enlarged-increased from previous exam with small pericardial effusion. Findings compatible with congestive heart failure. Abdominal images show the liver is diminutive with a vertical dimension of 9.6 cm at mid clavicular line. Attenuation is homogeneous with slight irregularity of the cortical surface. In addition, there is asymmetric enlargement of the lateral segment left hepatic and caudate lobes. Findings compatible with cirrhosis. No focal hepatic lesions or evidence of portal hypertension. The gallbladder and bile ducts are normal: CBD is 5 mm. Both adrenal glands, spleen, pancreas and abdominal aorta are normal in size, configuration and attenuation without focal lesion. Both kidneys are normal in size, configuration and position: the right is 9.4 cm in length and the left is 10.9 cm in length. Left renal cysts ranging up to 10 cm inferior pole are unchanged from previous CT. There is mild thickening of the transitional epithelium in the left renal pelvis and calyces with marked eccentric thickening near the UPJ. This has created a 22 mm masslike region in this area. Transitional cell carcinoma may be present. There is also mild transitional epithelium in the right upper collecting system. Pelvic images show moderate diffuse wall thickening of the urinary bladder which has progressed from the most recent CT. Prostate is borderline enlarged but has inhomogeneous attenuation and edema in the periprostatic fat planes. These stomach, small and large bowel are grossly normal on today's examination. Recent periumbilical hernia repair changes show with typical postoperative appearance. Minimal edema in the mesentery retroperitoneal fat appreciated. There is no free air or adenopathy. Bone windows show no significant osseous abnormality. A large amount of edema in the subcutaneous fat is seen within the flank regions the abdomen and pelvis. This is likely related to congestive heart failure. IMPRESSION: 1. Moderate thickening of the transitional epithelium in the left upper collecting system with marked eccentric thickening near the UPJ creating a 22 mm mass. While this likely represents pyelonephritis, Transitional cell carcinoma requires exclusion. Suggest urology referral for retrograde ureterogram and lateral or ureteroscopy. Mild thickening of the transitional epithelium right upper collecting system may also represent pyelonephritis. 2. Moderate congestive heart failure featuring moderate cardiomegaly with small pericardial effusion and large bilateral pleural effusions resulting in compressive atelectasis of both lower lobes. A large amount of subcutaneous edema, in the flank regions of the abdomen and pelvis, is new from the comparison CT two months ago. Mild edema in the mesentery and retroperitoneum also are likely related to CHF. 3. Mild cirrhosis. No evidence of portal hypertension. Please correlate clinically and serologically. If this is a new or unsuspected diagnosis, consider ultrasound-guided biopsy for confirmatory tissue diagnosis. 4. Multiple renal cysts in the left kidney ranging up to 10 mm-stable 5. Diffuse wall thickening of the urinary bladder unchanged. This is likely related to chronic bladder outlet narrowing for prostatism. Prostate is borderline enlarged with inhomogeneous attenuation and preprostatic edema. Please correlate with digital rectal exam to evaluate for prostate infection. Interpreted and Authenticated by: Georgi Kumari 01/30/23
--- NOTE | 2023-01-30 07:38 | Internal Med History&Physical ---
HPI History of Present Illness Patient information: Note initiated : 01/30/23 at 7:30 am Service Date, if different from initiated Date: [] Patient: Nakul Andrew a 77 y/o M admitted on 01/30/23 for Shortness of Breath. Chief Complaint: [] History of present illness: Patient is a 77-year-old male with a history of CHF on torsemide, COPD on 2 L nasal cannula oxygen, CKD stage III, anemia presented with shortness of breath, anasarca, worsening peripheral edema. 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 Staff at assisted living are concerned about aspiration since patient was noted to be choking on his food. Patient states that he was short of breath prior to arrival, but states that with oxygen on he feels much better. He denies any symptoms at this time. On presentation he was in distress with respiratory rate of 29, he was hypoxic and was placed on BiPAP for work of breathing. CBC showed WBC of 16.4, hemoglobin 8.5. D-dimer 2.49 elevated, VBG showed pH 7.28, PCO2 71, HCO3 33. Cr 1.5 at baseline, elevated BNP of 15,000, negative troponin, equivocal procalcitonin 0.25. UA with presence of RBC, WBC, leukocyte esterase, many bacteria concerning for UTI. 1 of 2 blood culture b ottle positive for gram-positive cocci. EKG showed Afib with RVR, ventricular rate 139 bpm, nonspecific ST-T wave changes. CTA chest with large bilateral pleural effusions resulting in complete compressive atelectasis of both lower lobes with subsegmental atelectasis upper lobes. CT abdomen with cirrhosis, thickening of transitional epithelium in left upper collecting system creating 22 mm mass concerning for pyelonephritis versus transitional cell carcinoma. Also showed moderate congestive heart failure features with moderate cardiomegaly, small pericardial effusion, large bilateral pleural effusion, subcutaneous edema. Diffuse wall thickening of urinary bladder unchanged likely secondary to chronic prostatism. Please see full report. Review of system Constitutional: Denies fever or weakness Eyes: Denies eye pain or vision change ENT ED: Denies throat pain, hearing loss or rhinorrhea Cardiovascular: Denies chest pain, dyspnea on exertion, orthopnea or edema Respiratory: Denies shortness of breath or cough Gastrointestinal: Denies abdominal pain, nausea, vomiting, diarrhea, constipation, hematochezia or melena Genitourinary: Denies dysuria, frequency, hematuria or incontinence Musculoskeletal: Denies back pain or myalgia Integumentary: Denies rash or lesions Neurological: Denies headache, weakness, numbness, confusion, abnormal gait or dizziness Psychiatric: Denies anxiety, suicidal thoughts or homicidal thoughts Endocrine: Denies fatigue or polyuria Hematological/Lymphatic: Denies easy bleeding or easy bruising Physical examination General Limitations: no limitations General appearance: Present well-nourished male, alert, has anasarca, some bruising in both arms Head Head: Present normocephalic; Absent atraumatic Eye Eye: Present PERRL, EOMI and visual thibodeaux intact; Absent scleral icterus or nystagmus ENT ENT: Present mucous membranes moist; Absent nasal congestion Neck Neck: Present full ROM; Absent tenderness Chest Chest: Present normal inspection, symmetric chest wall rise and tenderness Respiratory Respiratory: Mild end expiratory wheeze bilaterally Cardiovascular Cardiovascular: S1 and S2, irregularly irregular, systolic murmur over mitral area, 2-3+ peripheral edema up to thighs Adbominal Abdominal: Present soft and normal bowel sounds; Absent distention or tenderness Rectal Rectal: Present deferred Extremities Extremities: Present normal inspection and full ROM; Absent tenderness Back Back: Present normal inspection and full ROM; Absent tenderness Neurological Neurological: Present alert, poor cognition, CN II-XII intact, no focal deficits Psychiatric Psychiatric: Present normal affect and normal mood Skin Skin: Present warm (WNL), dry and normal color Assessment and plan Acute diastolic CHF Patient with anasarca, bilateral pleural effusion, cardiomegaly, hypoxia, elevated BNP of 15,000. Patient takes torsemide 20 mg p.o. twice daily at home Review echo from June 2022, EF 65-70%, biatrial enlargement, moderate MR and TR , PAP 50-60mmHG Start Lasix 80 mg IV twice daily. Monitor weight daily. Strict input and output Monitor renal functions and electrolytes Repeat echo A-fib with RVR EKG showed Afib with RVR, ventricular rate 139 bpm, nonspecific ST-T wave changes, EKG is poor quality will repeat. Resume metoprolol 25 mg p.o. twice daily Echocardiogram as above Sepsis Patient presented with tachypnea with respiratory rate 29, hypoxemia, leukocytosis of 16,000, gram-positive cocci bacteremia, likely source includes COPD exacerbation versus UTI. COPD exacerbation CT chest without any acute infiltrate. Procal 0.25 only Will treat with IV ceftriaxone, DuoNebs, budesonide, pulmonary toileting, supplemental oxygen as needed Gram-positive cocci bacteremia, will follow culture data Suspected UTI UA appears infected. Follow urine culture. Ceftriaxone will cover Acute hypoxemic respiratory failure Patient with respiratory distress requiring BiPAP initially. Now weaned down to 7 to 8 L nasal cannula oxygen. Continue pulmonary toileting Concern for aspiration Speech therapy evaluation requested GERD Continue PPI BPH Continue Flomax DVT prophylaxis in place CC time taken 45 minutes PFSH PFS All Active Problems (Updated 01/30/23 @ 02:42 by Aditya New MD) Acute exacerbation of CHF (congestive heart failure) (Acute) Acute hypercapnic respiratory failure (Acute) Social History smoking status: Former smoker MEDS/ALLERGIES Home Medications and Allergies Home Medications Medication Instructions Recorded Confirmed Type albuterol sulfate 90 mcg/actuation 2 puff inhalation QID PRN 11/27/21 01/30/23 History aerosol inhaler (ProAir HFA) Shortness Of Breath tamsulosin 0.4 mg capsule (Flomax) 0.4 mg PO QDAY 11/27/21 01/30/23 History hydrocodone 10 mg-acetaminophen 1 tab PO Q8H PRN Pain 01/15/22 01/30/23 History 325 mg tablet magnesium hydroxide 400 mg/5 mL 30 ml PO QDAY PRN constipation 01/15/22 01/30/23 History oral suspension (Milk of Magnesia) metoprolol tartrate 25 mg tablet 25 mg PO BID 01/15/22 01/30/23 History potassium chloride 20 mEq 10 meq PO QDAY 01/15/22 01/30/23 History tablet,extended release sodium phosphates 19 gram-7 118 ml ND PRN PRN Constipation 01/15/22 01/30/23 History gram/118 mL enema (Fleet Enema) omeprazole 40 mg PO BID 05/18/22 01/30/23 History aspirin 81 mg tablet 81 mg PO QDAY 01/30/23 01/30/23 History oxycodone 5 mg tablet 5 mg PO Q4HP PRN pain 01/30/23 01/30/23 History torsemide 20 mg tablet 20 mg PO BID 01/30/23 01/30/23 History Allergies Allergy/AdvReac Type Severity Reaction Status Date / Time bee venom protein (honey bee) Allergy Severe Anaphylaxis Verified 05/18/22 14:57 [place] AdvReac Intermediate Hives Verified 05/18/22 14:57 codeine AdvReac Mild Vomiting Verified 05/18/22 14:57 tramadol AdvReac Mild Vomiting Verified 05/18/22 14:57 EXAM Constitutional Vitals: Temp Pulse Resp BP Pulse Ox O2 Del Method O2 Flow Rate 97.8 F 72 21 104/64 97 BiPAP 8 01/30/23 06:01 01/30/23 06:01 01/30/23 06:01 01/30/23 06:01 01/30/23 06:01 01/30/23 06:01 01/29/23 18:06 DATA Data Completed and Pending Labs: Labs from last 24 hours 01/29/23 01/29/23 01/29/23 22:01 18:37 18:30 WBC RBC Hgb Hct POC Hct MCV MCH MCHC RDW Plt Count MPV Immature Gran % (Auto) Neut % (Auto) Lymph % (Auto) [place] % (Auto) Eos % (Auto) Baso % (Auto) Lymph # (Auto) [place] # (Auto) Eos # (Auto) Baso # (Auto) Immature Gran # Absolute Neutrophils D-Dimer POC pH 7.32 L POC pCO2 61.0 H* POC pO2 91 POC HCO3 31.4 H POC ABG Base Excess 5.0 H ABG Lactic Acid 0.6 POC VBG pH 7.28 L POC VBG pCO2 at Temp 71.2 H* POC VBG pO2 67 H POC VBG HCO3 33.8 H POC VBG Total CO2 36.0 H POC Venous O2 Sat 89.0 H POC VBG Base Excess 7.0 H* VBG Lactic Acid 0.5 Hgb O2 Saturation 96.0 POC Sodium POC Potassium POC Chloride POC Total CO2 33.0 H POC BUN POC Creatinine POC Glucose POC WB Ioniz Calcium NT-Pro-B Natriuret Pep Procalcitonin Urine Color Yellow Urine Appearance Turbid A Urine pH 5.0 Ur Specific [place] 1.014 Urine Protein 100 A Urine Glucose (UA) Negative Urine Ketones Negative Urine Occult Blood Negative Urine Nitrate Negative Urine Bilirubin Negative Urine Urobilinogen 2.0 A Ur Leukocyte Esterase 500 A Urine RBC 16 H Urine WBC > 182 H Ur Squamous Epith Cells 3 Urine Bacteria Many A Hyaline Casts 14 H Urine Mucus Mod A Ur Culture Indicated? yes POC Troponin I 01/29/23 01/29/23 01/29/23 17:35 17:35 17:34 WBC 16.4 H RBC 3.29 L Hgb 8.5 L Hct 31.0 L POC Hct MCV 94.2 MCH 25.8 L MCHC 27.4 L RDW 21.2 H Plt Count 243 MPV 11.6 Immature Gran % (Auto) 0.6 H Neut % (Auto) 92.3 H Lymph % (Auto) 0.9 L [place] % (Auto) 6.0 Eos % (Auto) 0 Baso % (Auto) 0.2 Lymph # (Auto) 0.15 L [place] # (Auto) 0.98 H Eos # (Auto) 0 Baso # (Auto) 0.03 Immature Gran # 0.10 H Absolute Neutrophils 15.10 H D-Dimer POC pH POC pCO2 POC pO2 POC HCO3 POC ABG Base Excess ABG Lactic Acid POC VBG pH POC VBG pCO2 at Temp POC VBG pO2 POC VBG HCO3 POC VBG Total CO2 POC Venous O2 Sat POC VBG Base Excess VBG Lactic Acid Hgb O2 Saturation POC Sodium POC Potassium POC Chloride POC Total CO2 POC BUN POC Creatinine POC Glucose POC WB Ioniz Calcium NT-Pro-B Natriuret Pep 30102.0 H Procalcitonin 0.25 H Urine Color Urine Appearance Urine pH Ur Specific [place] Urine Protein Urine Glucose (UA) Urine Ketones Urine Occult Blood Urine Nitrate Urine Bilirubin Urine Urobilinogen Ur Leukocyte Esterase Urine RBC Urine WBC Ur Squamous Epith Cells Urine Bacteria Hyaline Casts Urine Mucus Ur Culture Indicated? POC Troponin I 01/29/23 01/29/23 01/29/23 17:33 17:19 17:17 WBC RBC Hgb Hct POC Hct 34.0 L MCV MCH MCHC RDW Plt Count MPV Immature Gran % (Auto) Neut % (Auto) Lymph % (Auto) [place] % (Auto) Eos % (Auto) Baso % (Auto) Lymph # (Auto) [place] # (Auto) Eos # (Auto) Baso # (Auto) Immature Gran # Absolute Neutrophils D-Dimer 2.49 H POC pH POC pCO2 POC pO2 POC HCO3 POC ABG Base Excess ABG Lactic Acid POC VBG pH POC VBG pCO2 at Temp POC VBG pO2 POC VBG HCO3 POC VBG Total CO2 POC Venous O2 Sat POC VBG Base Excess VBG Lactic Acid Hgb O2 Saturation POC Sodium 139 POC Potassium 4.7 POC Chloride 100 POC Total CO2 32.0 H POC BUN 30 H POC Creatinine 1.5 H POC Glucose 137 H POC WB Ioniz Calcium 1.11 L NT-Pro-B Natriuret Pep Procalcitonin Urine Color Urine Appearance Urine pH Ur Specific [place] Urine Protein Urine Glucose (UA) Urine Ketones Urine Occult Blood Urine Nitrate Urine Bilirubin Urine Urobilinogen Ur Leukocyte Esterase Urine RBC Urine WBC Ur Squamous Epith Cells Urine Bacteria Hyaline Casts Urine Mucus Ur Culture Indicated? POC Troponin I 0.02 A/P Time Spent With Patient Time: Total time spent is greater than 50% in coordination of care (as documented) at patient's floor/unit and/or counseling patient: QUALITY VTE Deep Vein Thrombosis/Pulmonary Embolism Present on Admission: No
[2023-01-30] MEDS ORDERED: LACTULOSE 20 GM/30 ML ORAL.SOL PO PRN (07:46)
[2023-01-30] MEDS ORDERED: ONDANSETRON 4 MG ODT TABLET SL PRN (07:46)
[2023-01-30] MEDS ORDERED: BISACODYL 5 MG TABLET PO PRN (07:46)
[2023-01-30] MEDS ORDERED: cefTRIAXone 1 GM in DEXTROSE 5% IN WATER 50 ML IV SCH (08:00)
[2023-01-30] MEDS: BUDESONIDE 0.5 MG/2 ML AMPUL.NEB NEB SCH ×2 (08:10→19:19)
[2023-01-30 08:33] LABS: Basophils # (Auto) 0.03 K/mcL (0.00-0.30); Basophils % (Auto) 0.2 % (0.0-2.0); Eosinophils # (Auto) 0.02 K/mcL (0.00-0.70); Eosinophils % (Auto) 0.2 % (0.0-7.0); Hematocrit 29.2 % (40.1-51.0); Hemoglobin 8.2 g/dL (13.7-17.5); Lymphocytes # (Auto) 0.41 K/mcL (1.50-4.80); Lymphocytes % (Auto) 3.2 % (15.5-49.0); Mean Cell Volume 92.4 fL (80.0-100.0); Mean Corpuscular HGB Conc 28.1 g/dL (31.0-36.0); Mean Platelet Volume 10.8 fL (8.8-12.5); Monocytes # (Auto) 0.86 K/mcL (0.10-0.90); Monocytes % (Auto) 6.7 % (1.0-12.0); Neutrophils % (Auto) 89.2 % (38.0-78.0); Platelet Count 204 K/mcL (140-440); RBC 3.16 M/mcL (4.63-6.08); WBC 12.8 K/mcL (4.5-11.0)
[2023-01-30 08:51] LABS: ALT/SGPT 6 U/L (<40); AST/SGOT 12 U/L (<40); Albumin 2.2 gm/dL (3.2-5.2); Albumin/Globulin Ratio 0.5 (1.0-2.3); Alkaline Phosphatase 89 U/L (39-117); Bilirubin,Direct 0.2 mg/dL (<0.3); Bilirubin,Total 0.5 mg/dL (0.1-1.0); Blood Urea Nitrogen 31 mg/dL (8-23); Calcium 8.7 mg/dL (8.6-10.4); Carbon Dioxide 31 mmol/L (22-30); Chloride 103 mmol/L (96-108); Globulin 4.2 gm/dL (2.2-3.7); Glomerular Filtration Rate 52; Glucose 100 mg/dL (70-105); Lactate Dehydrogenase 185 U/L (135-225); Phosphorous 3.5 mg/dL (2.5-4.5); Triglycerides 50 mg/dL (<150); Uric Acid 9.1 mg/dL (2.5-8.0)
[2023-01-30 08:55] LABS: Hemoglobin A1C 5.2 % Hgb (4.0-6.0)
[2023-01-30] MEDS: ENOXAPARIN 40 MG/0.4 ML SYRINGE SQ SCH (09:56)
[2023-01-30] MEDS: FUROSEMIDE 100 MG/10 ML VIAL IV SCH ×2 (09:56→16:14)
[2023-01-30] MEDS: DOCUSATE SODIUM 100 MG CAPSULE PO SCH ×2 (09:56→21:43)
[2023-01-30] MEDS: cefTRIAXone 1 GM VIAL IV SCH (10:01)
[2023-01-30] MEDS: ACETAMINOPHEN 325 MG TABLET PO PRN (10:02)
[2023-01-30] MEDS: IPRATROPIUM/ALBUTEROL 3 ML AMPUL.NEB NEB SCH ×2 (12:42→19:19)
[2023-01-30] MEDS: SENNOSIDES 1 TABLET PO PRN (21:43)
[2023-01-30] MEDS ORDERED: oxyCODONE IR 5 MG TABLET PO PRN (21:47)
[2023-01-30] MEDS: HYDROcodone/APAP 10/325MG TABLET PO PRN (21:54)
[2023-01-31] MEDS: IPRATROPIUM/ALBUTEROL 3 ML AMPUL.NEB NEB SCH ×4 (01:33→19:11)
[2023-01-31] MEDS: 0.9 % SODIUM CHLORIDE 10 ML SYRINGE IV SCH ×7 (05:07→22:05)
[2023-01-31 06:29] LABS: Basophils # (Auto) 0.04 K/mcL (0.00-0.30); Basophils % (Auto) 0.5 % (0.0-2.0); Eosinophils # (Auto) 0.21 K/mcL (0.00-0.70); Eosinophils % (Auto) 2.8 % (0.0-7.0); Hematocrit 32.3 % (40.1-51.0); Hemoglobin 9.1 g/dL (13.7-17.5); Lymphocytes # (Auto) 0.49 K/mcL (1.50-4.80); Lymphocytes % (Auto) 6.6 % (15.5-49.0); Mean Cell Volume 92.6 fL (80.0-100.0); Mean Corpuscular HGB Conc 28.2 g/dL (31.0-36.0); Mean Platelet Volume 11.1 fL (8.8-12.5); Monocytes # (Auto) 0.64 K/mcL (0.10-0.90); Monocytes % (Auto) 8.6 % (1.0-12.0); Platelet Count 212 K/mcL (140-440); RBC 3.49 M/mcL (4.63-6.08); Red Cell Distribution Width 21.4 % (11.5-14.5); WBC 7.4 K/mcL (4.5-11.0)
[2023-01-31] MEDS: BUDESONIDE 0.5 MG/2 ML AMPUL.NEB NEB SCH ×2 (07:11→19:11)
[2023-01-31] MEDS: FUROSEMIDE 100 MG/10 ML VIAL IV SCH ×2 (07:12→15:09)
--- NOTE | 2023-01-31 07:30 | EKG ---
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 Measurements Intervals [place] Rate: 139 P: [place]: QRS: -31 QRSD: 102 T: 99 QT: 311 QTc: 473 Interpretive Statements Atrial fibrillation Paired ventricular premature complexes Low voltage, extremity leads Abnormal R-wave progression, late transition Repolarization abnormality, prob rate related Electronically Signed On 01-31-2023 7:30:06 PDT by Georgi Vera M.D. /[email or web address]/[id number]
--- NOTE | 2023-01-31 07:33 | EKG ---
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 Measurements Intervals [place] Rate: 96 P: [place]: QRS: -24 QRSD: 100 T: 103 QT: 335 QTc: 424 Interpretive Statements Atrial fibrillation Low voltage, extremity leads Probable anteroseptal infarct, old Nonspecific T abnormalities, lateral leads Electronically Signed On 01-31-2023 7:32:55 PDT by Georgi Vera M.D. /[email or web address]/[email or web address]/[id number]
[2023-01-31 07:39] LABS: ALT/SGPT 8 U/L (<40); AST/SGOT 12 U/L (<40); Albumin 2.2 gm/dL (3.2-5.2); Albumin/Globulin Ratio 0.4 (1.0-2.3); Alkaline Phosphatase 96 U/L (39-117); Bilirubin,Total 0.4 mg/dL (0.1-1.0); Blood Urea Nitrogen 36 mg/dL (8-23); Calcium 9.2 mg/dL (8.6-10.4); Carbon Dioxide 28 mmol/L (22-30); Chloride 100 mmol/L (96-108); Globulin 4.9 gm/dL (2.2-3.7); Glomerular Filtration Rate 48; Glucose 87 mg/dL (70-105)
[2023-01-31] MEDS: ENOXAPARIN 40 MG/0.4 ML SYRINGE SQ SCH (08:40)
[2023-01-31] MEDS: DOCUSATE SODIUM 100 MG CAPSULE PO SCH ×2 (08:41→21:31)
[2023-01-31] MEDS: cefTRIAXone 1 GM VIAL IV SCH (08:42)
--- NOTE | 2023-01-31 12:33 | Internal Med Progress Note ---
SUBJECTIVE Subjective Patient information: Note initiated : 01/31/23 at 12:31 pm Service Date, if different from initiated Date: [] Patient: Nakul Andrew a 77 y/o M admitted on 01/30/23 for Shortness of Breath. Chief Complaint: [] Additional PMFSH (Level 3 Only): History of present illness: Patient is a 77-year-old male with a history of CHF on torsemide, COPD on 2 L nasal cannula oxygen, CKD stage III, anemia presented with shortness of breath, anasarca, worsening peripheral edema. 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 Staff at assisted living are concerned about aspiration since patient was noted to be choking on his food. Patient states that he was short of breath prior to arrival, but states that with oxygen on he feels much better. He denies any symptoms at this time. On presentation he was in distress with respiratory rate of 29, he was hypoxic and was placed on BiPAP for work of breathing. CBC showed WBC of 16.4, hemoglobin 8.5. D-dimer 2.49 elevated, VBG showed pH 7.28, PCO2 71, HCO3 33. Cr 1.5 at baseline, elevated BNP of 15,000, negative troponin, equivocal procalcitonin 0.25. UA with presence of RBC, WBC, leukocyte esterase, many bacteria concerning for UTI. 1 of 2 blood culture bottle positive for gram-positive cocci. EKG showed Afib with RVR, ventricular rate 139 bpm, nonspecific ST-T wave changes. CTA chest with large bilateral pleural effusions resulting in complete compressive atelectasis of both lower lobes with subsegmental atelectasis upper lobes. CT abdomen with cirrhosis, thickening of transitional epithelium in left upper collecting system creating 22 mm mass concerning for pyelonephritis versus transitional cell carcinoma. Also showed moderate congestive heart failure features with moderate cardiomegaly, small pericardial effusion, large bilateral pleural effusion, subcutaneous edema. Diffuse wall thickening of urinary bladd er unchanged likely secondary to chronic prostatism. Please see full report. 01/[address] more alert and coherent today. Bilateral lower leg swelling is improving, he reports she noted legs were getting worse for several weeks. He is diuresing well on IV Lasix, per nursing staff he had 4 L urine output past 24 hours. Leukocytosis has resolved. Initial blood culture positive for gram-positive cocci, repeat blood culture ordered today. Serum creatinine 1.4 . Echocardiogram completed this morning but report is pending. Review of system Constitutional: Denies fever, reports lower extremity swelling Eyes: Denies eye pain or vision change ENT ED: Denies throat pain, hearing loss or rhinorrhea Cardiovascular: Denies chest pain, dyspnea on exertion, orthopnea or edema Respiratory: Denies shortness of breath or cough Gastrointestinal: Denies abdominal pain, nausea, vomiting, diarrhea, constipation, hematochezia or melena Genitourinary: Denies dysuria, frequency, hematuria or incontinence Musculoskeletal: Denies back pain or myalgia Integumentary: Denies rash or lesions Neurological: Denies headache, weakness, numbness, confusion, abnormal gait or dizziness Psychiatric: Denies anxiety, suicidal thoughts or homicidal thoughts Endocrine: Denies fatigue or polyuria Hematological/Lymphatic: Denies easy bleeding or easy bruising Physical examination General Limitations: no limitations General appearance: Present well-nourished male, alert, has anasarca, some bruising in both arms Head Head: Present normocephalic; Absent atraumatic Eye Eye: Present PERRL, EOMI and visual thibodeaux intact; Absent scleral icterus or nystagmus ENT ENT: Present mucous membranes moist; Absent nasal congestion Neck Neck: Present full ROM; Absent tenderness Chest Chest: Present normal inspection, symmetric chest wall rise and tenderness Respiratory Respiratory: Mild end expiratory wheeze bilaterally Cardiovascular Cardiovascular: S1 and S2, irregularly irregular, systolic murmur over mitral area, 2-3+ peripheral edema up to thighs Adbominal Abdominal: Present soft and normal bowel sounds; Absent distention or tenderness Rectal Rectal: Present deferred Extremities Extremities: Present normal inspection and full ROM; Absent tenderness Back Back: Present normal inspection and full ROM; Absent tenderness Neurological Neurological: Present alert, poor cognition, CN II-XII intact, no focal deficits Psychiatric Psychiatric: Present normal affect and normal mood Skin Skin: Present warm (WNL), dry and normal color Assessment and plan Acute diastolic CHF Patient with anasarca, bilateral pleural effusion, cardiomegaly, hypoxia, elevated BNP of 15,000. Patient takes torsemide 20 mg p.o. twice daily at home Review echo from June 2022, EF 65-70%, biatrial enlargement, moderate MR and TR , PAP 50-60mmHG Good urine output, continue Lasix 80 mg IV twice daily. Monitor weight daily. Strict input and output Monitor renal functions and electrolytes Echo is pending A-fib with RVR EKG showed Afib with RVR, ventricular rate 139 bpm, nonspecific ST-T wave changes. Rate now controlled on metoprolol 25 mg twice daily. [id number] 2 score is at least 2 warranting anticoagulation Echocardiogram as above Sepsis Patient presented with tachypnea with respiratory rate 29, hypoxemia, leukocytosis of 16,000, gram-positive cocci bacteremia, likely source includes COPD exacerbation versus UTI. COPD exacerbation CT chest without any acute infiltrate. Procal 0.25 only. Leukocytosis resolved Will treat with IV ceftriaxone, DuoNebs, budesonide, pulmonary toileting, supplemental oxygen as needed Gram-positive cocci bacteremia, will follow culture data. Repeat blood cultures ordered 01/31 Suspected UTI UA appears infected. Follow urine culture. Ceftriaxone will cover Acute hypoxemic respiratory failure Patient with respiratory distress requiring BiPAP initially. Now weaned down to3 L nasal cannula oxygen. Continue pulmonary toileting Concern for aspiration Speech therapy evaluation requested GERD Continue PPI BPH Continue Flomax DVT prophylaxis in place Time taken 45 minutes Constitutional Vitals: Vital Signs Temp Pulse Resp BP Pulse Ox O2 Del Method O2 Flow Rate 98.3 F 92 H 28 H 137/69 92 Nasal Cannula 3 01/31/23 12:00 01/31/23 12:19 01/31/23 12:19 01/31/23 12:00 01/31/23 12:00 01/31/23 12:19 01/31/23 12:19 Period Temp Pulse Resp BP Sys/Murphy Pulse Ox O2 Del Method O2 Flow Rate Last 24 Hr 97.5 F-98.7 F 54-102 15-41 95-146/51-84 90-100 BiPAP-Nasal Cannula 2-4 Intake and Output 01/31/23 01/31/23 01/31/23 03:59 11:59 19:59 Intake Total 200 220 Output Total 750 2925 Balance -550 -2705 Weight 107.955 kg Intake & Output: Intake & Output 01/31/23 01/31/23 01/31/23 03:59 11:59 19:59 Intake Total 200 220 Output Total 750 2925 Balance -550 -2705 Weight 107.955 kg Intake: Oral 200 220 Output: Urine Catheter Amount 750 2925 Other: Meal Breakfast Percent of Meal Consumed 50% Urine Appearance Clear Clear Uretheral (Turner) Clear Urine Color Yellow Yellow Pale Uretheral (Turner) Yellow Urine Odor Normal Normal OBJ DATA Labs 01/31/23 05:08 01/31/23 05:08 Labs: Abnormal Lab Results 01/31/23 01/31/23 01/30/23 05:08 05:08 08:08 WBC RBC 3.49 L Hgb 9.1 L Hct 32.3 L POC Hct MCH MCHC 28.2 L RDW 21.4 H Immature Gran % (Auto) Neut % (Auto) 81.0 H Lymph % (Auto) 6.6 L Lymph # (Auto) 0.49 L [place] # (Auto) Immature Gran # Absolute Neutrophils D-Dimer POC pH POC pCO2 POC HCO3 POC ABG Base Excess POC VBG pH POC VBG pCO2 at Temp POC VBG pO2 POC VBG HCO3 POC VBG Total CO2 POC Venous O2 Sat POC VBG Base Excess Carbon Dioxide 31 H POC Total CO2 Anion Gap 4.0 L POC BUN BUN 36 H 31 H Creatinine 1.4 H 1.3 H POC Creatinine POC Glucose Uric Acid 9.1 H POC WB Ioniz Calcium NT-Pro-B Natriuret Pep Albumin 2.2 L 2.2 L Globulin 4.9 H 4.2 H Albumin/Globulin Ratio 0.4 L 0.5 L Procalcitonin Urine Appearance Urine Protein Urine Urobilinogen Ur Leukocyte Esterase Urine RBC Urine WBC Urine Bacteria Hyaline Casts Urine Mucus 01/30/23 01/29/23 01/29/23 08:08 22:01 18:37 WBC 12.8 H RBC 3.16 L Hgb 8.2 L Hct 29.2 L POC Hct MCH 25.9 L MCHC 28.1 L RDW 21.0 H Immature Gran % (Auto) Neut % (Auto) 89.2 H Lymph % (Auto) 3.2 L Lymph # (Auto) 0.41 L [place] # (Auto) Immature Gran # 0.07 H Absolute Neutrophils 11.36 H D-Dimer POC pH 7.32 L POC pCO2 61.0 H* POC HCO3 31.4 H POC ABG Base Excess 5.0 H POC VBG pH 7.28 L POC VBG pCO2 at Temp 71.2 H* POC VBG pO2 67 H POC VBG HCO3 33.8 H POC VBG Total CO2 36.0 H POC Venous O2 Sat 89.0 H POC VBG Base Excess 7.0 H* Carbon Dioxide POC Total CO2 33.0 H Anion Gap POC BUN BUN Creatinine POC Creatinine POC Glucose Uric Acid POC WB Ioniz Calcium NT-Pro-B Natriuret Pep Albumin Globulin Albumin/Globulin Ratio Procalcitonin Urine Appearance Urine Protein Urine Urobilinogen Ur Leukocyte Esterase Urine RBC Urine WBC Urine Bacteria Hyaline Casts Urine Mucus 01/29/23 01/29/23 01/29/23 18:30 17:35 17:35 WBC 16.4 H RBC 3.29 L Hgb 8.5 L Hct 31.0 L POC Hct MCH 25.8 L MCHC 27.4 L RDW 21.2 H Immature Gran % (Auto) 0.6 H Neut % (Auto) 92.3 H Lymph % (Auto) 0.9 L Lymph # (Auto) 0.15 L [place] # (Auto) 0.98 H Immature Gran # 0.10 H Absolute Neutrophils 15.10 H D-Dimer POC pH POC pCO2 POC HCO3 POC ABG Base Excess POC VBG pH POC VBG pCO2 at Temp POC VBG pO2 POC VBG HCO3 POC VBG Total CO2 POC Venous O2 Sat POC VBG Base Excess Carbon Dioxide POC Total CO2 Anion Gap POC BUN BUN Creatinine POC Creatinine POC Glucose Uric Acid POC WB Ioniz Calcium NT-Pro-B Natriuret Pep 17410.0 H Albumin Globulin Albumin/Globulin Ratio Procalcitonin Urine Appearance Turbid A Urine Protein 100 A Urine Urobilinogen 2.0 A Ur Leukocyte Esterase 500 A Urine RBC 16 H Urine WBC > 182 H Urine Bacteria Many A Hyaline Casts 14 H Urine Mucus Mod A 01/29/23 01/29/23 01/29/23 17:34 17:33 17:17 WBC RBC Hgb Hct POC Hct 34.0 L MCH MCHC RDW Immature Gran % (Auto) Neut % (Auto) Lymph % (Auto) Lymph # (Auto) [place] # (Auto) Immature Gran # Absolute Neutrophils D-Dimer 2.49 H POC pH POC pCO2 POC HCO3 POC ABG Base Excess POC VBG pH POC VBG pCO2 at Temp POC VBG pO2 POC VBG HCO3 POC VBG Total CO2 POC Venous O2 Sat POC VBG Base Excess Carbon Dioxide POC Total CO2 32.0 H Anion Gap POC BUN 30 H BUN Creatinine POC Creatinine 1.5 H POC Glucose 137 H Uric Acid POC WB Ioniz Calcium 1.11 L NT-Pro-B Natriuret Pep Albumin Globulin Albumin/Globulin Ratio Procalcitonin 0.25 H Urine Appearance Urine Protein Urine Urobilinogen Ur Leukocyte Esterase Urine RBC Urine WBC Urine Bacteria Hyaline Casts Urine Mucus Meds: Medications Acetaminophen (Acetaminophen 325 Mg Tablet) 650 mg PO Q6HP PRN; Protocol PRN Reason: Per Pain Protocol/Fever > 101 Last Admin: 01/30/23 10:02 Dose: 650 mg Hydrocodone Bitart/Acetaminophen (Hydrocodone/Apap 10/325mg Tablet) 1 tab PO Q8HP PRN; Protocol PRN Reason: Per Pain Protocol Last Admin: 01/30/23 21:54 Dose: 1 tab Albuterol/Ipratropium (Ipratropium/Albuterol 3 Ml Ampul.Neb) 3 ml NEB Q6HRT [facility] Last Admin: 01/31/23 12:16 Dose: 3 ml Bisacodyl (Bisacodyl 5 Mg Tablet) 10 mg PO DAILYP PRN PRN Reason: Constipation Budesonide (Budesonide 0.5 Mg/2 Ml Ampul.Neb) 0.5 mg NEB Q12 [facility] Last Admin: 01/31/23 07:11 Dose: 0.5 mg Ceftriaxone Sodium (Ceftriaxone 1 Gm Vial) 1 gm IV Q24H [facility] Last Admin: 01/31/23 08:42 Dose: 1 gm Docusate Sodium (Docusate Sodium 100 Mg Capsule) 100 mg PO BID [facility] Last Admin: 01/31/23 08:41 Dose: 100 mg Enoxaparin Sodium (Enoxaparin 40 Mg/0.4 Ml Syringe) 40 mg SQ DAILY [facility] Last Admin: 01/31/23 08:40 Dose: 40 mg Furosemide (Furosemide 100 Mg/10 Ml Vial) 80 mg IV BIDD [facility] Last Admin: 01/31/23 07:12 Dose: 80 mg Lactulose (Lactulose 20 Gm/30 Ml Oral.Gayatri) 10 gm PO DAILYP PRN PRN Reason: Constipation Ondansetron HCl (Ondansetron 4 Mg/2 Ml Vial) 4 mg IV Q4HP PRN; Protocol PRN Reason: Nausea And Vomiting Ondansetron HCl (Ondansetron 4 Mg Odt Tablet) 4 mg SL Q4HP PRN; Protocol PRN Reason: Nausea And Vomiting Oxycodone HCl (Oxycodone Ir 5 Mg Tablet) 1 mg PO Q4HP PRN PRN Reason: Per Pain Protocol Senna (Sennosides 1 Tablet) 2 tab PO HSP PRN PRN Reason: Constipation Last Admin: 01/30/23 21:43 Dose: 2 tab Sodium Chloride (0.9 % Sodium Chloride 10 Ml Syringe) 10 ml IV Q8 [facility] Last Admin: 01/31/23 05:07 Dose: 10 ml Sodium Chloride (0.9 % Sodium Chloride 10 Ml Syringe) 10 ml IV Q8 [facility] Last Admin: 01/31/23 05:08 Dose: Not Given A/P Time Spent With Patient Time: Total time spent is greater than 50% in coordination of care (as documented) at patient's floor/unit and/or counseling patient: QUALITY VTE Deep Vein Thrombosis/Pulmonary Embolism Present on Admission: No
[2023-01-31] MEDS: HYDROcodone/APAP 10/325MG TABLET PO PRN (21:31)
[2023-01-31] MEDS: SENNOSIDES 1 TABLET PO PRN (21:31)
[2023-02-01] MEDS: IPRATROPIUM/ALBUTEROL 3 ML AMPUL.NEB NEB SCH ×4 (01:10→18:37)
[2023-02-01] MEDS: 0.9 % SODIUM CHLORIDE 10 ML SYRINGE IV SCH ×6 (05:37→21:09)
[2023-02-01 06:43] LABS: Basophils # (Auto) 0.03 K/mcL (0.00-0.30); Basophils % (Auto) 0.4 % (0.0-2.0); Eosinophils # (Auto) 0.21 K/mcL (0.00-0.70); Hematocrit 27.8 % (40.1-51.0); Hemoglobin 8.2 g/dL (13.7-17.5); Lymphocytes # (Auto) 0.41 K/mcL (1.50-4.80); Lymphocytes % (Auto) 5.9 % (15.5-49.0); Mean Cell Volume 87.1 fL (80.0-100.0); Mean Corpuscular HGB Conc 29.5 g/dL (31.0-36.0); Monocytes # (Auto) 0.62 K/mcL (0.10-0.90); Monocytes % (Auto) 8.9 % (1.0-12.0); Neutrophils % (Auto) 81.4 % (38.0-78.0); Platelet Count 211 K/mcL (140-440); RBC 3.19 M/mcL (4.63-6.08); Red Cell Distribution Width 20.8 % (11.5-14.5)
[2023-02-01 07:06] LABS: ALT/SGPT 7 U/L (<40); AST/SGOT 11 U/L (<40); Albumin 2.2 gm/dL (3.2-5.2); Albumin/Globulin Ratio 0.5 (1.0-2.3); Alkaline Phosphatase 83 U/L (39-117); Bilirubin,Total 0.3 mg/dL (0.1-1.0); Blood Urea Nitrogen 33 mg/dL (8-23); Calcium 8.8 mg/dL (8.6-10.4); Carbon Dioxide 38 mmol/L (22-30); Chloride 101 mmol/L (96-108); Globulin 4.3 gm/dL (2.2-3.7); Glomerular Filtration Rate 52; Glucose 99 mg/dL (70-105)
[2023-02-01] MEDS: BUDESONIDE 0.5 MG/2 ML AMPUL.NEB NEB SCH ×2 (07:37→18:33)
[2023-02-01] MEDS: DOCUSATE SODIUM 100 MG CAPSULE PO SCH ×2 (08:33→21:08)
[2023-02-01] MEDS: ENOXAPARIN 40 MG/0.4 ML SYRINGE SQ SCH (08:33)
[2023-02-01] MEDS: FUROSEMIDE 100 MG/10 ML VIAL IV SCH ×4 (08:33→21:08)
[2023-02-01] MEDS: cefTRIAXone 1 GM VIAL IV SCH (08:35)
--- NOTE | 2023-02-01 09:28 | Internal Med Progress Note ---
SUBJECTIVE Subjective Patient information: Note initiated : 02/01/23 at 9:19 am Service Date, if different from initiated Date: [] Patient: Nakul Andrew a 77 y/o M admitted on 01/30/23 for Shortness of Breath. Chief Complaint: [] Additional PMFSH (Level 3 Only): History of present illness: Patient is a 77-year-old male with a history of CHF on torsemide, COPD on 2 L nasal cannula oxygen, CKD stage III, anemia presented with shortness of breath, anasarca, worsening peripheral edema. 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 Staff at assisted living are concerned about aspiration since patient was noted to be choking on his food. Patient states that he was short of breath prior to arrival, but states that with oxygen on he feels much better. He denies any symptoms at this time. On presentation he was in distress with respiratory rate of 29, he was hypoxic and was placed on BiPAP for work of breathing. CBC showed WBC of 16.4, hemoglobin 8.5. D-dimer 2.49 elevated, VBG showed pH 7.28, PCO2 71, HCO3 33. Cr 1.5 at baseline, elevated BNP of 15,000, negative troponin, equivocal procalcitonin 0.25. UA with presence of RBC, WBC, leukocyte esterase, many bacteria concerning for UTI. 1 of 2 blood culture bottle positive for gram-positive cocci. EKG showed Afib with RVR, ventricular rate 139 bpm, nonspecific ST-T wave changes. CTA chest with large bilateral pleural effusions resulting in complete compressive atelectasis of both lower lobes with subsegmental atelectasis upper lobes. CT abdomen with cirrhosis, thickening of transitional epithelium in left upper collecting system creating 22 mm mass concerning for pyelonephritis versus transitional cell carcinoma. Also showed moderate congestive heart failure features with moderate cardiomegaly, small pericardial effusion, large bilateral pleural effusion, subcutaneous edema. Diffuse wall thickening of urinary bladder unchanged likely secondary to chronic prostatism. Please see full report. 01/[address] more alert and coherent today. Bilateral lower leg swelling is improving, he reports she noted legs were getting worse for several weeks. He is diuresing well on IV Lasix, per nursing staff he had 4 L urine output past 24 hours. Leukocytosis has resolved. Initial blood culture positive for gram-positive cocci, repeat blood culture ordered today. Serum creatinine 1.4 . Echocardiogram completed this morning but report is pending. 02/01. Feels well. Urine output around 5.7 L yesterday, electrolytes and renal function stable. Will start him on scheduled potassium supplementation since its drifting down slowly. Will increase IV Lasix to 80 mg 3 times daily. Blood culture from 01/29 is presumptively positive for Streptococcus pneumonia, urine culture positive for gram-negative bacilli. Repeat blood culture from 01/31 team negative to date. Review of system Constitutional: Denies fever, peripheral edema is improving Eyes: Denies eye pain or vision change ENT ED: Denies throat pain, hearing loss or rhinorrhea Cardiovascular: Denies chest pain, dyspnea on exertion, orthopnea or edema Respiratory: Denies shortness of breath or cough Gastrointestinal: Denies abdominal pain, nausea, vomiting, diarrhea, constipation, hematochezia or melena Genitourinary: Denies dysuria, frequency, hematuria or incontinence Musculoskeletal: Denies back pain or myalgia Integumentary: Denies rash or lesions Neurological: Denies headache, weakness, numbness, confusion, abnormal gait or dizziness Psychiatric: Denies anxiety, suicidal thoughts or homicidal thoughts Endocrine: Denies fatigue or polyuria Hematological/Lymphatic: Denies easy bleeding or easy bruising Physical examination General Limitations: no limitations General appearance: Present alert and awake, on supplemental oxygen, in no acute distress Head Head: Present normocephalic; Absent atraumatic Eye Eye: Present PERRL, EOMI and visual thibodeaux intact; Absent scleral icterus or nystagmus ENT ENT: Present mucous membranes moist; Absent nasal congestion Neck Neck: Present full ROM; Absent tenderness Chest Chest: Present normal inspection, symmetric chest wall rise and tenderness Respiratory Respiratory: Mild end expiratory wheeze bilaterally Cardiovascular Cardiovascular: S1 and S2, irregularly irregular, systolic murmur over mitral area, 2-3+ peripheral edema up to thighs, improved from before Adbominal Abdominal: Present soft and normal bowel sounds; Absent distention or tenderness Rectal Rectal: Present deferred Extremities Extremities: Present normal inspection and full ROM; Absent tenderness Back Back: Present normal inspection and full ROM; Absent tenderness Neurological Neurological: Present alert, cognition has improved, no focal deficits noted Psychiatric Psychiatric: Present normal affect and normal mood Skin Skin: Present warm (WNL), dry and normal color Assessment and plan Acute diastolic CHF Patient with anasarca, bilateral pleural effusion, cardiomegaly, hypoxia, elevated BNP of 15,000. Patient takes torsemide 20 mg p.o. twice daily at home Review echo from June 2022, EF 65-70%, biatrial enlargement, moderate MR and TR , PAP 50-60mmHG Urine output 5.7 over 24 hours. Increase IV Lasix 80 mg 3 times daily Potassium chloride 40 mg twice daily scheduled for now Monitor weight daily. Strict input and output Monitor renal functions and electrolytes Echo is pending A-fib with RVR EKG showed Afib with RVR, ventricular rate 139 bpm, nonspecific ST-T wave changes. Rate now controlled on metoprolol 25 mg twice daily. [id number] 2 score is at least 2 warranting anticoagulation Echocardiogram pending Sepsis Patient presented with tachypnea with respiratory rate 29, hypoxemia, leukocytosis of 16,000, gram-positive cocci bacteremia, likely source includes COPD exacerbation versus UTI. COPD exacerbation CT chest without any acute infiltrate. Procal 0.25 only. Leukocytosis resolved Blood culture from 01/29 is presumptively positive for Streptococcus pneumonia. Repeat blood culture from 01/31 team negative to date. Continue IV ceftriaxone, DuoNebs, budesonide, pulmonary toileting, supplemental oxygen as needed Suspected UTI urine culture positive for gram-negative bacilli, follow final culture c eftriaxone will cover Acute hypoxemic respiratory failure Patient with respiratory distress requiring BiPAP initially. Now weaned down to 3 L nasal cannula oxygen. Continue pulmonary toileting Concern for aspiration Speech therapy evaluation requested GERD Continue PPI BPH Continue Flomax Physical deconditioning PT eval DVT prophylaxis in place Time taken 45 minutes Constitutional Vitals: Vital Signs Temp Pulse Resp BP Pulse Ox O2 Del Method O2 Flow Rate 98.5 F 85 26 H 136/59 91 Nasal Cannula 3 02/01/23 08:01 02/01/23 07:38 02/01/23 08:01 02/01/23 08:01 02/01/23 08:01 02/01/23 08:01 02/01/23 08:01 Period Temp Pulse Resp BP Sys/Murphy Pulse Ox O2 Del Method O2 Flow Rate Last 24 Hr 98.1 F-98.9 F 77-101 17-41 112-141/50-76 35-99 BiPAP-Nasal Cannula 2-3 Intake and Output 01/31/23 02/01/23 02/01/23 19:59 03:59 11:59 Intake Total 580 240 50 Output Total 1250 1450 300 Balance -670 -1210 -250 Weight 107.955 kg 105.233 kg Intake & Output: Intake & Output 01/31/23 02/01/23 02/01/23 19:59 03:59 11:59 Intake Total 580 240 50 Output Total 1250 1450 300 Balance -670 -1210 -250 Weight 107.955 kg 105.233 kg Intake: Oral 340 240 50 GI Tube Flush 240 Output: Urine Catheter Amount 900 1450 300 Void Amount 350 Other: Meal Dinner snack Percent of Meal Consumed 50% Feeding Ability Assist with Tray Set Up Independent Nourishment/Supplement name applesauce Urine Appearance Clear Clear Clear Uretheral (Turner) Clear Clear Urine Color Yellow Yellow Yellow Uretheral (Turner) Yellow Yellow Pale Stool Size Small Stool Color Brown Stool Consistency Dry and Hard # Bowel Movements 1 OBJ DATA Labs 02/01/23 05:40 02/01/23 05:40 Labs: Abnormal Lab Results 02/01/23 02/01/23 01/31/23 05:40 05:40 05:08 WBC RBC 3.19 L Hgb 8.2 L Hct 27.8 L POC Hct MCH 25.7 L MCHC 29.5 L RDW 20.8 H Immature Gran % (Auto) Neut % (Auto) 81.4 H Lymph % (Auto) 5.9 L Lymph # (Auto) 0.41 L Heard # (Auto) Immature Gran # Absolute Neutrophils D-Dimer POC pH POC pCO2 POC HCO3 POC ABG Base Excess POC VBG pH POC VBG pCO2 at Temp POC VBG pO2 POC VBG HCO3 POC VBG Total CO2 POC Venous O2 Sat POC VBG Base Excess Carbon Dioxide 38 H POC Total CO2 Anion Gap 3.0 L POC BUN BUN 33 H 36 H Creatinine 1.3 H 1.4 H POC Creatinine POC Glucose Uric Acid POC WB Ioniz Calcium NT-Pro-B Natriuret Pep Albumin 2.2 L 2.2 L Globulin 4.3 H 4.9 H Albumin/Globulin Ratio 0.5 L 0.4 L Procalcitonin Urine Appearance Urine Protein Urine Urobilinogen Ur Leukocyte Esterase Urine RBC Urine WBC Urine Bacteria Hyaline Casts Urine Mucus 01/31/23 01/30/2323 05:08 08:08 08:08 WBC 12.8 H RBC 3.49 L 3.16 L Hgb 9.1 L 8.2 L Hct 32.3 L 29.2 L POC Hct MCH 25.9 L MCHC 28.2 L 28.1 L RDW 21.4 H 21.0 H Immature Gran % (Auto) Neut % (Auto) 81.0 H 89.2 H Lymph % (Auto) 6.6 L 3.2 L Lymph # (Auto) 0.49 L 0.41 L Heard # (Auto) Immature Gran # 0.07 H Absolute Neutrophils 11.36 H D-Dimer POC pH POC pCO2 POC HCO3 POC ABG Base Excess POC VBG pH POC VBG pCO2 at Temp POC VBG pO2 POC VBG HCO3 POC VBG Total CO2 POC Venous O2 Sat POC VBG Base Excess Carbon Dioxide 31 H POC Total CO2 Anion Gap 4.0 L POC BUN BUN 31 H Creatinine 1.3 H POC Creatinine POC Glucose Uric Acid 9.1 H POC WB Ioniz Calcium NT-Pro-B Natriuret Pep Albumin 2.2 L Globulin 4.2 H Albumin/Globulin Ratio 0.5 L Procalcitonin Urine Appearance Urine Protein Urine Urobilinogen Ur Leukocyte Esterase Urine RBC Urine WBC Urine Bacteria Hyaline Casts Urine Mucus 01/29/23 01/29/23 01/29/23 22:01 18:37 18:30 WBC RBC Hgb Hct POC Hct MCH MCHC RDW Immature Gran % (Auto) Neut % (Auto) Lymph % (Auto) Lymph # (Auto) Heard # (Auto) Immature Gran # Absolute Neutrophils D-Dimer POC pH 7.32 L POC pCO2 61.0 H* POC HCO3 31.4 H POC ABG Base Excess 5.0 H POC VBG pH 7.28 L POC VBG pCO2 at Temp 71.2 H* POC VBG pO2 67 H POC VBG HCO3 33.8 H POC VBG Total CO2 36.0 H POC Venous O2 Sat 89.0 H POC VBG Base Excess 7.0 H* Carbon Dioxide POC Total CO2 33.0 H Anion Gap POC BUN BUN Creatinine POC Creatinine POC Glucose Uric Acid POC WB Ioniz Calcium NT-Pro-B Natriuret Pep Albumin Globulin Albumin/Globulin Ratio Procalcitonin Urine Appearance Turbid A Urine Protein 100 A Urine Urobilinogen 2.0 A Ur Leukocyte Esterase 500 A Urine RBC 16 H Urine WBC > 182 H Urine Bacteria Many A Hyaline Casts 14 H Urine Mucus Mod A 01/29/23 01/29/23 01/29/23 17:35 17:35 17:34 WBC 16.4 H RBC 3.29 L Hgb 8.5 L Hct 31.0 L POC Hct MCH 25.8 L MCHC 27.4 L RDW 21.2 H Immature Gran % (Auto) 0.6 H Neut % (Auto) 92.3 H Lymph % (Auto) 0.9 L Lymph # (Auto) 0.15 L Heard # (Auto) 0.98 H Immature Gran # 0.10 H Absolute Neutrophils 15.10 H D-Dimer POC pH POC pCO2 POC HCO3 POC ABG Base Excess POC VBG pH POC VBG pCO2 at Temp POC VBG pO2 POC VBG HCO3 POC VBG Total CO2 POC Venous O2 Sat POC VBG Base Excess Carbon Dioxide POC Total CO2 Anion Gap POC BUN BUN Creatinine POC Creatinine POC Glucose Uric Acid POC WB Ioniz Calcium NT-Pro-B Natriuret Pep 28927.0 H Albumin Globulin Albumin/Globulin Ratio Procalcitonin 0.25 H Urine Appearance Urine Protein Urine Urobilinogen Ur Leukocyte Esterase Urine RBC Urine WBC Urine Bacteria Hyaline Casts Urine Mucus 01/29/23 01/29/23 17:33 17:17 WBC RBC Hgb Hct POC Hct 34.0 L MCH MCHC RDW Immature Gran % (Auto) Neut % (Auto) Lymph % (Auto) Lymph # (Auto) Heard # (Auto) Immature Gran # Absolute Neutrophils D-Dimer 2.49 H POC pH POC pCO2 POC HCO3 POC ABG Base Excess POC VBG pH POC VBG pCO2 at Temp POC VBG pO2 POC VBG HCO3 POC VBG Total CO2 POC Venous O2 Sat POC VBG Base Excess Carbon Dioxide POC Total CO2 32.0 H Anion Gap POC BUN 30 H BUN Creatinine POC Creatinine 1.5 H POC Glucose 137 H Uric Acid POC WB Ioniz Calcium 1.11 L NT-Pro-B Natriuret Pep Albumin Globulin Albumin/Globulin Ratio Procalcitonin Urine Appearance Urine Protein Urine Urobilinogen Ur Leukocyte Esterase Urine RBC Urine WBC Urine Bacteria Hyaline Casts Urine Mucus Meds: Medications Acetaminophen (Acetaminophen 325 Mg Tablet) 650 mg PO Q6HP PRN; Protocol PRN Reason: Per Pain Protocol/Fever > 101 Last Admin: 01/30/23 10:02 Dose: 650 mg Hydrocodone Bitart/Acetaminophen (Hydrocodone/Apap 10/325mg Tablet) 1 tab PO Q8HP PRN; Protocol PRN Reason: Per Pain Protocol Last Admin: 01/30/23 21:54 Dose: 1 tab Albuterol/Ipratropium (Ipratropium/Albuterol 3 Ml Ampul.Neb) 3 ml NEB Q6HRT [facility] Last Admin: 02/01/23 07:37 Dose: 3 ml Bisacodyl (Bisacodyl 5 Mg Tablet) 10 mg PO DAILYP PRN PRN Reason: Constipation Budesonide (Budesonide 0.5 Mg/2 Ml Ampul.Neb) 0.5 mg NEB Q12 [facility] Last Admin: 02/01/23 07:37 Dose: 0.5 mg Ceftriaxone Sodium (Ceftriaxone 1 Gm Vial) 1 gm IV Q24H [facility] Last Admin: 02/01/23 08:35 Dose: 1 gm Docusate Sodium (Docusate Sodium 100 Mg Capsule) 100 mg PO BID [facility] Last Admin: 02/01/23 08:33 Dose: 100 mg Enoxaparin Sodium (Enoxaparin 40 Mg/0.4 Ml Syringe) 40 mg SQ DAILY [facility] Last Admin: 02/01/23 08:33 Dose: 40 mg Furosemide (Furosemide 100 Mg/10 Ml Vial) 80 mg IV BIDD [facility] Last Admin: 02/01/23 08:33 Dose: 80 mg Lactulose (Lactulose 20 Gm/30 Ml Oral.Gayatri) 10 gm PO DAILYP PRN PRN Reason: Constipation Ondansetron HCl (Ondansetron 4 Mg/2 Ml Vial) 4 mg IV Q4HP PRN; Protocol PRN Reason: Nausea And Vomiting Ondansetron HCl (Ondansetron 4 Mg Odt Tablet) 4 mg SL Q4HP PRN; Protocol PRN Reason: Nausea And Vomiting Oxycodone HCl (Oxycodone Ir 5 Mg Tablet) 1 mg PO Q4HP PRN PRN Reason: Per Pain Protocol Senna (Sennosides 1 Tablet) 2 tab PO HSP PRN PRN Reason: Constipation Last Admin: 01/31/23 21:31 Dose: 2 tab Sodium Chloride (0.9 % Sodium Chloride 10 Ml Syringe) 10 ml IV Q8 [facility] Last Admin: 02/01/23 05:37 Dose: 10 ml Sodium Chloride (0.9 % Sodium Chloride 10 Ml Syringe) 10 ml IV Q8 [facility] Last Admin: 02/01/23 06:27 Dose: 10 ml A/P Time Spent With Patient Time: Total time spent is greater than 50% in coordination of care (as documented) at patient's floor/unit and/or counseling patient: QUALITY VTE Deep Vein Thrombosis/Pulmonary Embolism Present on Admission: No
[2023-02-01] MEDS: POTASSIUM CHLORIDE 20 MEQ TABLET PO SCH ×2 (12:46→17:32)
[2023-02-01] MEDS ORDERED: POTASSIUM CHLORIDE 20 MEQ TABLET PO SCH (21:00)
[2023-02-01] MEDS: SENNOSIDES 1 TABLET PO PRN (21:08)
[2023-02-02] MEDS: IPRATROPIUM/ALBUTEROL 3 ML AMPUL.NEB NEB SCH ×4 (01:25→19:18)
[2023-02-02] MEDS: ONDANSETRON 4 MG/2 ML VIAL IV PRN (01:44)
[2023-02-02] MEDS: 0.9 % SODIUM CHLORIDE 10 ML SYRINGE IV SCH ×6 (05:15→21:50)
[2023-02-02 07:05] LABS: Basophils # (Auto) 0.05 K/mcL (0.00-0.30); Basophils % (Auto) 0.8 % (0.0-2.0); Eosinophils # (Auto) 0.19 K/mcL (0.00-0.70); Eosinophils % (Auto) 2.9 % (0.0-7.0); Hemoglobin 8.7 g/dL (13.7-17.5); Lymphocytes # (Auto) 0.45 K/mcL (1.50-4.80); Lymphocytes % (Auto) 6.9 % (15.5-49.0); Mean Cell Volume 88.5 fL (80.0-100.0); Mean Platelet Volume 11.5 fL (8.8-12.5); Monocytes # (Auto) 0.61 K/mcL (0.10-0.90); Monocytes % (Auto) 9.4 % (1.0-12.0); Neutrophils % (Auto) 79.5 % (38.0-78.0); Platelet Count 231 K/mcL (140-440); RBC 3.39 M/mcL (4.63-6.08); Red Cell Distribution Width 20.8 % (11.5-14.5); WBC 6.5 K/mcL (4.5-11.0)
[2023-02-02] MEDS: BUDESONIDE 0.5 MG/2 ML AMPUL.NEB NEB SCH ×2 (07:58→19:18)
[2023-02-02] MEDS: POTASSIUM CHLORIDE 20 MEQ TABLET PO SCH ×2 (08:13→15:35)
[2023-02-02 08:43] LABS: ALT/SGPT 8 U/L (<40); AST/SGOT 13 U/L (<40); Albumin 2.4 gm/dL (3.2-5.2); Albumin/Globulin Ratio 0.6 (1.0-2.3); Alkaline Phosphatase 89 U/L (39-117); Bilirubin,Total 0.3 mg/dL (0.1-1.0); Blood Urea Nitrogen 31 mg/dL (8-23); Calcium 8.7 mg/dL (8.6-10.4); Carbon Dioxide 37 mmol/L (22-30); Chloride 97 mmol/L (96-108); Globulin 4.3 gm/dL (2.2-3.7); Glomerular Filtration Rate 58; Glucose 106 mg/dL (70-105)
[2023-02-02] MEDS: FUROSEMIDE 100 MG/10 ML VIAL IV SCH ×3 (08:49→21:48)
[2023-02-02] MEDS: cefTRIAXone 1 GM VIAL IV SCH (08:49)
[2023-02-02] MEDS: DOCUSATE SODIUM 100 MG CAPSULE PO SCH ×2 (08:49→21:48)
[2023-02-02] MEDS: ENOXAPARIN 40 MG/0.4 ML SYRINGE SQ SCH (08:49)
--- NOTE | 2023-02-02 09:26 | Internal Med Progress Note ---
SUBJECTIVE Subjective Patient information: Note initiated : 02/02/23 at 9:14 am Service Date, if different from initiated Date: [] Patient: Nakul Andrew a 77 y/o M admitted on 01/30/23 for Shortness of Breath. Chief Complaint: [] Additional PMFSH (Level 3 Only): History of present illness: Patient is a 77-year-old male with a history of CHF on torsemide, COPD on 2 L nasal cannula oxygen, CKD stage III, anemia presented with shortness of breath, anasarca, worsening peripheral edema. 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 Staff at assisted living are concerned about aspiration since patient was noted to be choking on his food. Patient states that he was short of breath prior to arrival, but states that with oxygen on he feels much better. He denies any symptoms at this time. On presentation he was in distress with respiratory rate of 29, he was hypoxic and was placed on BiPAP for work of breathing. CBC showed WBC of 16.4, hemoglobin 8.5. D-dimer 2.49 elevated, VBG showed pH 7.28, PCO2 71, HCO3 33. Cr 1.5 at baseline, elevated BNP of 15,000, negative troponin, equivocal procalcitonin 0.25. UA with presence of RBC, WBC, leukocyte esterase, many bacteria concerning for UTI. 1 of 2 blood culture bottle positive for gram-positive cocci. EKG showed Afib with RVR, ventricular rate 139 bpm, nonspecific ST-T wave changes. CTA chest with large bilateral pleural effusions resulting in complete compressive atelectasis of both lower lobes with subsegmental atelectasis upper lobes. CT abdomen with cirrhosis, thickening of transitional epithelium in left upper collecting system creating 22 mm mass concerning for pyelonephritis versus transitional cell carcinoma. Also showed moderate congestive heart failure features with moderate cardiomegaly, small pericardial effusion, large bilateral pleural effusion, subcutaneous edema. Diffuse wall thickening of urinary bladder unchanged likely secondary to chronic prostatism. Please see full report. 01/[address] more alert and coherent today. Bilateral lower leg swelling is improving, he reports she noted legs were getting worse for several weeks. He is diuresing well on IV Lasix, per nursing staff he had 4 L urine output past 24 hours. Leukocytosis has resolved. Initial blood culture positive for gram-positive cocci, repeat blood culture ordered today. Serum creatinine 1.4 . Echocardiogram completed this morning but report is pending. 02/01. Feels well. Urine output around 5.7 L yesterday, electrolytes and renal function stable. Will start him on scheduled potassium supplementation since its drifting down slowly. Will increase IV Lasix to 80 mg 3 times daily. Blood culture from 01/29 is presumptively positive for Streptococcus pneumonia, urine culture positive for gram-negative bacilli. Repeat blood culture from 01/31 team negative to date. 02/02 patient reports breathing is better, urine output around 4.2 L over past 24 hours, electrolytes stable, serum creatinine improved to 1.2 from 1.3 before. His weight is down to 102 kg from 113kg on admission, weight loss of around 24 pounds. He still has over 2+ peripheral edema. Echocardiogram is now available. EF 60-65%, right ventricle systolic function moderately reduced, both atria are moderately dilated, mild MR, moderate to severe tricuspid regurgitation. Estimated pulmonary artery pressure 57 mmHg. When compared to last echo dated 11/27/2021, right ventricle dysfunction is new and pulmonary pressure worse Review of system Constitutional: Denies fever, peripheral edema is improving Eyes: Denies eye pain or vision change ENT ED: Denies throat pain, hearing loss or rhinorrhea Cardiovascular: Denies chest pain, dyspnea on exertion, orthopnea or edema Respiratory: Denies shortness of breath or cough Gastrointestinal: Denies abdominal pain, nausea, vomiting, diarrhea, constipation, hematochezia or melena Genitourinary: Denies dysuria, frequency, hematuria or incontinence Musculoskeletal: Denies back pain or myalgia Integumentary: Denies rash or lesions Neurological: Denies headache, weakness, numbness, confusion, abnormal gait or dizziness Psychiatric: Denies anxiety, suicidal thoughts or homicidal thoughts Endocrine: Denies fatigue or polyuria Hematological/Lymphatic: Denies easy bleeding or easy bruising Physical examination General Limitations: no limitations General appearance: Present alert and awake, on supplemental oxygen, in no acute distress Head Head: Present normocephalic; Absent atraumatic Eye Eye: Present PERRL, EOMI and visual thibodeaux intact; Absent scleral icterus or nystagmus ENT ENT: Present mucous membranes moist; Absent nasal congestion Neck Neck: Present full ROM; Absent tenderness Chest Chest: Present normal inspection, symmetric chest wall rise and tenderness Respiratory Respiratory: Mild end expiratory wheeze bilaterally Cardiovascular Cardiovascular: S1 and S2, irregularly irregular, systolic murmur over mitral area, 2-3+ peripheral edema up to thighs, improved from before Adbominal Abdominal: Present soft and normal bowel sounds; Absent distention or tenderness Rectal Rectal: Present deferred Extremities Extremities: Present normal inspection and full ROM; Absent tenderness Back Back: Present normal inspection and full ROM; Absent tenderness Neurological Neurological: Present alert, cognition has improved, no focal deficits noted Psychiatric Psychiatric: Present normal affect and normal mood Skin Skin: Present warm (WNL), dry and normal color Assessment and plan Acute diastolic CHF Patient with anasarca, bilateral pleural effusion, cardiomegaly, hypoxia, elevated BNP of 15,000. Patient takes torsemide 20 mg p.o. twice daily at home Echocardiogram 01/30/2023. EF 60-65%, right ventricle systolic function moderately reduced, both atria are moderately dilated, mild MR, moderate to severe tricuspid regurgitation. Estimated pulmonary artery pressure 57 mmHg. When compared to last echo dated 11/27/2021, right ventricle dysfunction is new and pulmonary pressure worse Urine output > 4.2L. Continue IV Lasix 80 mg 3 times daily Potassium chloride 40 mg twice daily scheduled for now Monitor weight daily. Strict input and output Monitor renal functions and electrolytes A-fib with RVR EKG showed Afib with RVR, ventricular rate 139 bpm, nonspecific ST-T wave changes. Rate now controlled on metoprolol 25 mg twice daily. [id number] 2 score is at least 2 warranting anticoagulation On Lovenox 1 mg/kg twice daily Sepsis Patient presented with tachypnea with respiratory rate 29, hypoxemia, leukocytos is of 16,000, and suspected source of infection Ecoli UTI urine culture positive for EColi, pending susceptibilities. Continue ceftriaxone Gram-positive cocci bacteremia 1 out of 2 bottles positive for gram-positive cocci, presumptive Streptococcus pneumoniae from blood culture on 01/29. Repeat blood culture on 01/31 negative to date. COPD exacerbation CT chest without any acute infiltrate. Procal 0.25 only. Leukocytosis resolved Continue IV ceftriaxone, DuoNebs, budesonide, pulmonary toileting, supplemental oxygen as needed Acute hypoxemic respiratory failure Patient with respiratory distress requiring BiPAP initially. Now weaned down to 3 L nasal cannula oxygen. Continue pulmonary toileting Concern for aspiration Speech therapy evaluation requested GERD Continue PPI BPH Continue Flomax Physical deconditioning PT eval DVT prophylaxis in place Time taken 45 minutes Constitutional Vitals: Vital Signs Temp Pulse Resp BP Pulse Ox O2 Del Method O2 Flow Rate 98.8 F 93 H 28 H 115/63 92 Nasal Cannula 3 02/02/23 08:01 02/02/23 08:01 02/02/23 08:01 02/02/23 08:01 02/02/23 08:01 02/02/23 08:01 02/02/23 08:01 Period Temp Pulse Resp BP Sys/Murphy Pulse Ox O2 Del Method O2 Flow Rate Last 24 Hr 98.6 F-99.4 F 81-107 17-33 103-144/59-75 92-100 BiPAP-Nasal Cannula 3-4 Intake and Output 02/01/23 02/02/23 02/02/23 19:59 03:59 11:59 Intake Total 480 360 120 Output Total 2275 1750 200 Balance -1795 -1390 -80 Weight 102.376 kg Intake & Output: Intake & Output 02/01/23 02/02/23 02/02/23 19:59 03:59 11:59 Intake Total 480 360 120 Output Total 2275 1750 200 Balance -1795 -1390 -80 Weight 102.376 kg Intake: Oral 480 360 120 Output: Urine Catheter Amount 2275 1750 200 Other: Meal Dinner Breakfast Percent of Meal Consumed 25% 100% Feeding Ability Independent Assist with Tray Set Up Urine Appearance Clear Clear Clear Uretheral (Turner) Clear Urine Color Yellow Yellow Yellow Uretheral (Turner) Yellow Stool Size Small Stool Color Brown Stool Consistency Soft Formed # Bowel Movements 1 OBJ DATA Labs 02/02/23 05:32 02/02/23 05:32 Labs: Abnormal Lab Results 02/02/23 02/02/23 02/01/23 05:32 05:32 05:40 RBC 3.39 L Hgb 8.7 L Hct 30.0 L MCH 25.7 L MCHC 29.0 L RDW 20.8 H Neut % (Auto) 79.5 H Lymph % (Auto) 6.9 L Lymph # (Auto) 0.45 L Carbon Dioxide 37 H 38 H Anion Gap 6.0 L 3.0 L BUN 31 H 33 H Creatinine 1.3 H Glucose 106 H Albumin 2.4 L 2.2 L Globulin 4.3 H 4.3 H Albumin/Globulin Ratio 0.6 L 0.5 L 02/01/23 01/31/23 01/31/23 05:40 05:08 05:08 RBC 3.19 L 3.49 L Hgb 8.2 L 9.1 L Hct 27.8 L 32.3 L MCH 25.7 L MCHC 29.5 L 28.2 L RDW 20.8 H 21.4 H Neut % (Auto) 81.4 H 81.0 H Lymph % (Auto) 5.9 L 6.6 L Lymph # (Auto) 0.41 L 0.49 L Carbon Dioxide Anion Gap BUN 36 H Creatinine 1.4 H Glucose Albumin 2.2 L Globulin 4.9 H Albumin/Globulin Ratio 0.4 L Meds: Medications Acetaminophen (Acetaminophen 325 Mg Tablet) 650 mg PO Q6HP PRN; Protocol PRN Reason: Per Pain Protocol/Fever > 101 Last Admin: 01/30/23 10:02 Dose: 650 mg Hydrocodone Bitart/Acetaminophen (Hydrocodone/Apap 10/325mg Tablet) 1 tab PO Q8HP PRN; Protocol PRN Reason: Per Pain Protocol Last Admin: 01/30/23 21:54 Dose: 1 tab Albuterol/Ipratropium (Ipratropium/Albuterol 3 Ml Ampul.Neb) 3 ml NEB Q6HRT [facility] Last Admin: 02/02/23 07:58 Dose: 3 ml Bisacodyl (Bisacodyl 5 Mg Tablet) 10 mg PO DAILYP PRN PRN Reason: Constipation Budesonide (Budesonide 0.5 Mg/2 Ml Ampul.Neb) 0.5 mg NEB Q12 [facility] Last Admin: 02/02/23 07:58 Dose: 0.5 mg Ceftriaxone Sodium (Ceftriaxone 1 Gm Vial) 1 gm IV Q24H [facility] Last Admin: 02/02/23 08:49 Dose: 1 gm Docusate Sodium (Docusate Sodium 100 Mg Capsule) 100 mg PO BID [facility] Last Admin: 02/02/23 08:49 Dose: 100 mg Enoxaparin Sodium (Enoxaparin 40 Mg/0.4 Ml Syringe) 40 mg SQ DAILY [facility] Last Admin: 02/02/23 08:49 Dose: 40 mg Furosemide (Furosemide 100 Mg/10 Ml Vial) 80 mg IV TID [facility] Last Admin: 02/02/23 08:49 Dose: 80 mg Lactulose (Lactulose 20 Gm/30 Ml Oral.Gayatri) 10 gm PO DAILYP PRN PRN Reason: Constipation Ondansetron HCl (Ondansetron 4 Mg/2 Ml Vial) 4 mg IV Q4HP PRN; Protocol PRN Reason: Nausea And Vomiting Last Admin: 02/02/23 01:44 Dose: 4 mg Ondansetron HCl (Ondansetron 4 Mg Odt Tablet) 4 mg SL Q4HP PRN; Protocol PRN Reason: Nausea And Vomiting Oxycodone HCl (Oxycodone Ir 5 Mg Tablet) 1 mg PO Q4HP PRN PRN Reason: Per Pain Protocol Potassium Chloride (Potassium Chloride 20 Meq Tablet) 40 meq PO BIDCC [facility] Last Admin: 02/02/23 08:13 Dose: 40 meq Senna (Sennosides 1 Tablet) 2 tab PO HSP PRN PRN Reason: Constipation Last Admin: 02/01/23 21:08 Dose: 2 tab Sodium Chloride (0.9 % Sodium Chloride 10 Ml Syringe) 10 ml IV Q8 [facility] Last Admin: 02/02/23 05:15 Dose: 10 ml Sodium Chloride (0.9 % Sodium Chloride 10 Ml Syringe) 10 ml IV Q8 [facility] Last Admin: 02/02/23 05:15 Dose: 10 ml A/P Time Spent With Patient Time: Total time spent is greater than 50% in coordination of care (as documented) at patient's floor/unit and/or counseling patient: QUALITY VTE Deep Vein Thrombosis/Pulmonary Embolism Present on Admission: No
[2023-02-02] MEDS: METOPROLOL TARTRATE 25 MG TABLET PO SCH ×2 (10:53→21:48)
--- NOTE | 2023-02-02 13:42 | Internal Med Progress Note ---
SUBJECTIVE Subjective Patient information: Note initiated : 02/02/23 at 1:31 pm Service Date, if different from initiated Date: [] Patient: Nakul Andrew a 77 y/o M admitted on 01/30/23 for Shortness of Breath. Chief Complaint: [] Interval history: History of present illness: Patient is a 77-year-old male with a history of CHF on torsemide, COPD on 2 L nasal cannula oxygen, CKD stage III, anemia presented with shortness of breath, anasarca, worsening peripheral edema. 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 Staff at assisted living are concerned about aspiration since patient was noted to be choking on his food. Patient states that he was short of breath prior to arrival, but states that with oxygen on he feels much better. He denies any symptoms at this time. On presentation he was in distress with respiratory rate of 29, he was hypoxic and was placed on BiPAP for work of breathing. CBC showed WBC of 16.4, hemoglobin 8.5. D-dimer 2.49 elevated, VBG showed pH 7.28, PCO2 71, HCO3 33. Cr 1.5 at baseline, elevated BNP of 15,000, negative troponin, equivocal procalcitonin 0.25. UA with presence of RBC, WBC, leukocyte esterase, many bacteria concerning for UTI. 1 of 2 blood culture bottle positive for gram-positive cocci. EKG showed Afib with RVR, ventricular rate 139 bpm, nonspecific ST-T wave changes. CTA chest with large bilateral pleural effusions resulting in complete compressive atelectasis of both lower lobes with subsegmental atelectasis upper lobes. CT abdomen with cirrhosis, thickening of transitional epithelium in left upper collecting system creating 22 mm mass concerning for pyelonephritis versus transitional cell carcinoma. Also showed moderate congestive heart failure features with moderate cardiomegaly, small pericardial effusion, large bilateral pleural effusion, subcutaneous edema. Diffuse wall thickening of urinary bladder unchanged likely secondary to chronic prostatism. Please see full report. 01/31 patient is way more alert and coherent today. Bilateral lower leg swelling is improving, he reports she noted legs were getting worse for several weeks. He is diuresing well on IV Lasix, per nursing staff he had 4 L urine output past 24 hours. Leukocytosis has resolved. Initial blood culture positive for gram- positive cocci, repeat blood culture ordered today. Serum creatinine 1.4 . Echocardiogram completed this morning but report is pending. 02/01. Feels well. Urine output around 5.7 L yesterday, electrolytes and renal function stable. Will start him on scheduled potassium supplementation since its drifting down slowly. Will increase IV Lasix to 80 mg 3 times daily. Blood culture from 01/29 is presumptively positive for Streptococcus pneumonia, urine culture positive for gram-negative bacilli. Repeat blood culture from 01/31 team negative to date. 02/02 patient reports breathing is better, urine output around 4.2 L over past 24 hours, electrolytes stable, serum creatinine improved to 1.2 from 1.3 before. His weight is down to 102 kg from 113kg on admission, weight loss of around 24 pounds. He still has over 2+ peripheral edema. Echocardiogram is now available. EF 60-65%, right ventricle systolic function moderately reduced, both atria are moderately dilated, mild MR, moderate to severe tricuspid regurgitation. Estimated pulmonary artery pressure 57 mmHg. When compared to last echo dated 11/27/2021, right ventricle dysfunction is new and pulmonary pressure worse 02/03 Review of Systems: denies headache/fever/chills/nausea/vomiting/chest or abdominal pain/cough/dyspnea/diarrhea. Otherwise see above. PHYSICAL EXAM General: Alert, Awake, No acute Distress Eyes/N/T: EOMI, no scleral icterus, Head/Neck: neck supple, full ROM, CV: irreg irreg, 2/6 SM Pulm: Clear b/l, no wheezing/rhonchi/rales, no respiratory distress Abd: soft, nontender, +BS x4 Ext: no clubbing/cyanosis, b/l LE + edema, nontender Neuro: Alert,, no focal deficits, moves all extremities, , sensations intact b/l upper/lower Psychiatric: Skin: warm/dry, normal color Constitutional Vitals: Vital Signs Temp Pulse Resp BP Pulse Ox O2 Del Method O2 Flow Rate 99.5 F H 85 22 123/78 94 Nasal Cannula 3 02/02/23 12:01 02/02/23 12:54 02/02/23 12:54 02/02/23 12:01 02/02/23 12:54 02/02/23 12:54 02/02/23 12:54 Period Temp Pulse Resp BP Sys/Murphy Pulse Ox O2 Del Method O2 Flow Rate Last 24 Hr 98.6 F-99.5 F 81-112 17-33 103-145/59-87 92-100 BiPAP-Nasal Cannula 3-4 Intake and Output 02/02/23 02/02/23 02/02/23 03:59 11:59 19:59 Intake Total 360 120 Output Total 1750 200 Balance -1390 -80 Weight 102.376 kg Intake & Output: Intake & Output 02/02/23 02/02/23 02/02/23 03:59 11:59 19:59 Intake Total 360 120 Output Total 1750 200 Balance -1390 -80 Weight 102.376 kg Intake: Oral 360 120 Output: Urine Catheter Amount 1750 200 Other: Meal Breakfast Percent of Meal Consumed 100% Feeding Ability Assist with Tray Set Up Urine Appearance Clear Clear Urine Color Yellow Yellow OBJ DATA Labs 02/02/23 05:32 02/02/23 05:32 Labs: Abnormal Lab Results 02/02/23 02/02/23 02/01/23 05:32 05:32 05:40 RBC 3.39 L Hgb 8.7 L Hct 30.0 L MCH 25.7 L MCHC 29.0 L RDW 20.8 H Neut % (Auto) 79.5 H Lymph % (Auto) 6.9 L Lymph # (Auto) 0.45 L Carbon Dioxide 37 H 38 H Anion Gap 6.0 L 3.0 L BUN 31 H 33 H Creatinine 1.3 H Glucose 106 H Albumin 2.4 L 2.2 L Globulin 4.3 H 4.3 H Albumin/Globulin Ratio 0.6 L 0.5 L 02/01/23 01/31/23 01/31/23 05:40 05:08 05:08 RBC 3.19 L 3.49 L Hgb 8.2 L 9.1 L Hct 27.8 L 32.3 L MCH 25.7 L MCHC 29.5 L 28.2 L RDW 20.8 H 21.4 H Neut % (Auto) 81.4 H 81.0 H Lymph % (Auto) 5.9 L 6.6 L Lymph # (Auto) 0.41 L 0.49 L Carbon Dioxide Anion Gap BUN 36 H Creatinine 1.4 H Glucose Albumin 2.2 L Globulin 4.9 H Albumin/Globulin Ratio 0.4 L Meds: Medications Acetaminophen (Acetaminophen 325 Mg Tablet) 650 mg PO Q6HP PRN; Protocol PRN Reason: Per Pain Protocol/Fever > 101 Last Admin: 01/30/23 10:02 Dose: 650 mg Hydrocodone Bitart/Acetaminophen (Hydrocodone/Apap 10/325mg Tablet) 1 tab PO Q8HP PRN; Protocol PRN Reason: Per Pain Protocol Last Admin: 01/30/23 21:54 Dose: 1 tab Albuterol/Ipratropium (Ipratropium/Albuterol 3 Ml Ampul.Neb) 3 ml NEB Q6HRT [facility] Last Admin: 02/02/23 12:54 Dose: 3 ml Bisacodyl (Bisacodyl 5 Mg Tablet) 10 mg PO DAILYP PRN PRN Reason: Constipation Budesonide (Budesonide 0.5 Mg/2 Ml Ampul.Neb) 0.5 mg NEB Q12 [facility] Last Admin: 02/02/23 07:58 Dose: 0.5 mg Ceftriaxone Sodium (Ceftriaxone 1 Gm Vial) 1 gm IV Q24H [facility] Last Admin: 02/02/23 08:49 Dose: 1 gm Docusate Sodium (Docusate Sodium 100 Mg Capsule) 100 mg PO BID [facility] Last Admin: 02/02/23 08:49 Dose: 100 mg Enoxaparin Sodium (Enoxaparin 100 Mg/Ml Syringe) 100 mg SQ BID [facility] Furosemide (Furosemide 100 Mg/10 Ml Vial) 80 mg IV TID [facility] Last Admin: 02/02/23 08:49 Dose: 80 mg Lactulose (Lactulose 20 Gm/30 Ml Oral.Gayatri) 10 gm PO DAILYP PRN PRN Reason: Constipation Metoprolol Tartrate (Metoprolol Tartrate 25 Mg Tablet) 25 mg PO BID [facility] Last Admin: 02/02/23 10:53 Dose: 25 mg Ondansetron HCl (Ondansetron 4 Mg/2 Ml Vial) 4 mg IV Q4HP PRN; Protocol PRN Reason: Nausea And Vomiting Last Admin: 02/02/23 01:44 Dose: 4 mg Ondansetron HCl (Ondansetron 4 Mg Odt Tablet) 4 mg SL Q4HP PRN; Protocol PRN Reason: Nausea And Vomiting Oxycodone HCl (Oxycodone Ir 5 Mg Tablet) 1 mg PO Q4HP PRN PRN Reason: Per Pain Protocol Potassium Chloride (Potassium Chloride 20 Meq Tablet) 20 meq PO BIDCC [facility] Senna (Sennosides 1 Tablet) 2 tab PO HSP PRN PRN Reason: Constipation Last Admin: 02/01/23 21:08 Dose: 2 tab Sodium Chloride (0.9 % Sodium Chloride 10 Ml Syringe) 10 ml IV Q8 [facility] Last Admin: 02/02/23 05:15 Dose: 10 ml Sodium Chloride (0.9 % Sodium Chloride 10 Ml Syringe) 10 ml IV Q8 [facility] Last Admin: 02/02/23 05:15 Dose: 10 ml A/P Narrative A/P Narrative: A: #acute on chronic diastolic CHF and Right(moderate) HF and Valvular dz (mod TR): #Anasarca and Pleural effusions: #Pulmonary hypertension: #chronic Afib w/RVR: #Sepsis: 2/2 uti #UTI(e.coli): #possible contaminant of blood cx's #COPD w/chronic hypoxia (3 L/min) and Exacerbation: #Acute hypoxic respiratory failure: 2/2 above -Patient with respiratory distress requiring BiPAP initially -Now weaned down to 3 L nasal cannula oxygen. #possible Aspiration: #CKD IIIb: #Anemia, chronic: #Obesity: bmi 34, Lifestyle modifications #GERD: #Generalized weakness/deconditioning: Plan: -Urine output > 4.2L. Continue IV Lasix 80 mg 3 times daily -Potassium chloride 40 mg twice daily scheduled for now -Monitor weight daily. Strict input and output -Monitor renal functions and electrolytes -lopressor 25 bid -Anticoagulation with Lovenox started, likely transition to eliquis -Continue Rocephin, pending UC -Continue IV ceftriaxone, DuoNebs, budesonide, pulmonary toileting, supplemental oxygen as needed -pending ST eval -PT consult -ppx: Lovenox SQ / home ppi Time Spent With Patient Time: Total time spent is greater than 50% in coordination of care (as documented) at patient's floor/unit and/or counseling patient: QUALITY VTE Deep Vein Thrombosis/Pulmonary Embolism Present on Admission: No
[2023-02-02] MEDS: ACETAMINOPHEN 325 MG TABLET PO PRN (15:25)
[2023-02-02] MEDS: ENOXAPARIN 100 MG/ML SYRINGE SQ SCH (21:48)
[2023-02-03] MEDS: IPRATROPIUM/ALBUTEROL 3 ML AMPUL.NEB NEB SCH ×4 (00:24→19:49)
[2023-02-03] MEDS: 0.9 % SODIUM CHLORIDE 10 ML SYRINGE IV SCH ×5 (05:55→21:44)
[2023-02-03 06:57] LABS: ALT/SGPT 9 U/L (<40); AST/SGOT 14 U/L (<40); Albumin 2.5 gm/dL (3.2-5.2); Albumin/Globulin Ratio 0.6 (1.0-2.3); Alkaline Phosphatase 88 U/L (39-117); Bilirubin,Direct < 0.2 mg/dL (0-0.3); Bilirubin,Total 0.3 mg/dL (0.1-1.0); Blood Urea Nitrogen 31 mg/dL (8-23); Calcium 9.2 mg/dL (8.6-10.4); Carbon Dioxide 37 mmol/L (22-30); Chloride 100 mmol/L (96-108); Globulin 4.5 gm/dL (2.2-3.7); Glomerular Filtration Rate 52; Glucose 102 mg/dL (70-105); Lactate Dehydrogenase 157 U/L (135-225); Phosphorous 3.5 mg/dL (2.5-4.5); Triglycerides 66 mg/dL (<150)
[2023-02-03] MEDS: BUDESONIDE 0.5 MG/2 ML AMPUL.NEB NEB SCH ×2 (06:58→19:49)
[2023-02-03] MEDS ORDERED: ALBUMIN HUMAN 12.5 GM/50 ML VIAL IV ONE (07:42)
[2023-02-03] MEDS ORDERED: FUROSEMIDE 100 MG/10 ML VIAL IV ONE (07:42)
--- NOTE | 2023-02-03 07:48 | Internal Med Progress Note ---
SUBJECTIVE Subjective Patient information: Note initiated : 02/03/23 at 7:37 am Service Date, if different from initiated Date: [] Patient: Nakul Andrew a 77 y/o M admitted on 01/30/23 for Shortness of Breath. Chief Complaint: [] Interval history: History of present illness: Patient is a 77-year-old male with a history of CHF on torsemide, COPD on 2 L nasal cannula oxygen, CKD stage III, anemia presented with shortness of breath, anasarca, worsening peripheral edema. 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 Staff at assisted living are concerned about aspiration since patient was noted to be choking on his food. Patient states that he was short of breath prior to arrival, but states that with oxygen on he feels much better. He denies any symptoms at this time. On presentation he was in distress with respiratory rate of 29, he was hypoxic and was placed on BiPAP for work of breathing. CBC showed WBC of 16.4, hemoglobin 8.5. D-dimer 2.49 elevated, VBG showed pH 7.28, PCO2 71, HCO3 33. Cr 1.5 at baseline, elevated BNP of 15,000, negative troponin, equivocal procalcitonin 0.25. UA with presence of RBC, WBC, leukocyte esterase, many bacteria concerning for UTI. 1 of 2 blood culture bottle positive for gram-positive cocci. EKG showed Afib with RVR, ventricular rate 139 bpm, nonspecific ST-T wave changes. CTA chest with large bilateral pleural effusions resulting in complete compressive atelectasis of both lower lobes with subsegmental atelectasis upper lobes. CT abdomen with cirrhosis, thickening of transitional epithelium in left upper collecting system creating 22 mm mass concerning for pyelonephritis versus transitional cell carcinoma. Also showed moderate congestive heart failure features with moderate cardiomegaly, small pericardial effusion, large bilateral pleural effusion, subcutaneous edema. Diffuse wall thickening of urinary bladder unchanged likely secondary to chronic prostatism. Please see full report. 01/[address] more alert and coherent today. Bilateral lower leg swelling is improving, he reports she noted legs were getting worse for several weeks. He is diuresing well on IV Lasix, per nursing staff he had 4 L urine output past 24 hours. Leukocytosis has resolved. Initial blood culture positive for gram- positive cocci, repeat blood culture ordered today. Serum creatinine 1.4 . Echocardiogram completed this morning but report is pending. 02/01. Feels well. Urine output around 5.7 L yesterday, electrolytes and renal function stable. Will start him on scheduled potassium supplementation since its drifting down slowly. Will increase IV Lasix to 80 mg 3 times daily. Blood culture from 01/29 is presumptively positive for Streptococcus pneumonia, urine culture positive for gram-negative bacilli. Repeat blood culture from 01/31 team negative to date. 02/02 patient reports breathing is better, urine output around 4.2 L over past 24 hours, electrolytes stable, serum creatinine improved to 1.2 from 1.3 before. His weight is down to 102 kg from 113kg on admission, weight loss of around 24 pounds. He still has over 2+ peripheral edema. Echocardiogram is now available. EF 60-65%, right ventricle systolic function moderately reduced, both atria are moderately dilated, mild MR, moderate to severe tricuspid regurgitation. Estimated pulmonary artery pressure 57 mmHg. When compared to last echo dated 11/27/2021, right ventricle dysfunction is new and pulmonary pressure worse 02/03 Patient on 4 L nasal cannula overnight. Patient on 3 L at home typically. Patient has cough productive of yellow sputum. Shortness of breath present but improving. Patient complains of headache. Patient still quite edematous. Decreased urine output with last Lasix dose. We will add albumin to next dose. ESBL E. coli found and antibiotics changed to Merrem. Follow-up x-ray with dense consolidations by basilar. Small intermediate effusions. Review of Systems: denies fever/chills/nausea/vomiting/chest or abdominal pain/diarrhea. Otherwise see above. PHYSICAL EXAM General: Alert, Awake, No acute Distress Eyes/N/T: EOMI, no scleral icterus, Head/Neck: neck supple, full ROM, CV: irreg irreg, 2/6 SM Pulm: diminished b/l, no wheezing, no respiratory distress Abd: soft, nontender, +BS x4 Ext: no clubbing/cyanosis, b/l LE 3+ edema, nontender Neuro: Alert,, no focal deficits, moves all extremities, , sensations intact b/l upper/lower Psychiatric: Skin: warm/dry, normal color Constitutional Vitals: Vital Signs Temp Pulse Resp BP Pulse Ox O2 Del Method O2 Flow Rate 98.9 F 89 29 H 113/59 94 Nasal Cannula 4 02/03/23 06:01 02/03/23 06:56 02/03/23 06:56 02/03/23 06:01 02/03/23 06:01 02/03/23 06:56 02/03/23 06:56 Period Temp Pulse Resp BP Sys/Murphy Pulse Ox O2 Del Method O2 Flow Rate Last 24 Hr 98.6 F-99.9 F 77-112 17-33 100-145/59-87 92-100 BiPAP-Nasal Cannula 2.5-5 Intake and Output 02/02/23 02/03/23 02/03/23 19:59 03:59 11:59 Intake Total 480 120 Output Total 625 400 125 Balance -145 -280 -125 Weight 102.376 kg 101.321 kg Intake & Output: Intake & Output 02/02/23 02/03/23 02/03/23 19:59 03:59 11:59 Intake Total 480 120 Output Total 625 400 125 Balance -145 -280 -125 Weight 102.376 kg 101.321 kg Intake: Oral 480 120 Output: Urine Catheter Amount 625 400 125 Other: Meal Dinner Percent of Meal Consumed 50% Feeding Ability Assist with Tray Set Up Urine Appearance Clear Cloudy Cloudy Uretheral (Turner) Clear Clear Urine Color Yellow Yellow Yellow Uretheral (Turner) Bright Yellow Bright Yellow Urine Odor Normal Normal Stool Size Large Stool Color Brown Stool Consistency Soft Loose # Bowel Movements 1 OBJ DATA Labs 02/02/23 05:32 02/03/23 05:47 Labs: Abnormal Lab Results 02/03/23 02/02/23 02/02/23 05:47 05:32 05:32 RBC 3.39 L Hgb 8.7 L Hct 30.0 L MCH 25.7 L MCHC 29.0 L RDW 20.8 H Neut % (Auto) 79.5 H Lymph % (Auto) 6.9 L Lymph # (Auto) 0.45 L Carbon Dioxide 37 H 37 H Anion Gap 3.0 L 6.0 L BUN 31 H 31 H Creatinine 1.3 H Glucose 106 H Uric Acid 10.0 H NT-Pro-B Natriuret Pep 58300.0 H Albumin 2.5 L 2.4 L Globulin 4.5 H 4.3 H Albumin/Globulin Ratio 0.6 L 0.6 L 02/01/23 02/01/23 01/31/23 05:40 05:40 05:08 RBC 3.19 L Hgb 8.2 L Hct 27.8 L MCH 25.7 L MCHC 29.5 L RDW 20.8 H Neut % (Auto) 81.4 H Lymph % (Auto) 5.9 L Lymph # (Auto) 0.41 L Carbon Dioxide 38 H Anion Gap 3.0 L BUN 33 H 36 H Creatinine 1.3 H 1.4 H Glucose Uric Acid NT-Pro-B Natriuret Pep Albumin 2.2 L 2.2 L Globulin 4.3 H 4.9 H Albumin/Globulin Ratio 0.5 L 0.4 L Meds: Medications Acetaminophen (Acetaminophen 325 Mg Tablet) 650 mg PO Q6HP PRN; Protocol PRN Reason: Per Pain Protocol/Fever > 101 Last Admin: 02/02/23 15:25 Dose: 650 mg Hydrocodone Bitart/Acetaminophen (Hydrocodone/Apap 10/325mg Tablet) 1 tab PO Q8HP PRN; Protocol PRN Reason: Per Pain Protocol Last Admin: 01/30/23 21:54 Dose: 1 tab Albuterol/Ipratropium (Ipratropium/Albuterol 3 Ml Ampul.Neb) 3 ml NEB Q6HRT [facility] Last Admin: 02/03/23 06:50 Dose: 3 ml Bisacodyl (Bisacodyl 5 Mg Tablet) 10 mg PO DAILYP PRN PRN Reason: Constipation Budesonide (Budesonide 0.5 Mg/2 Ml Ampul.Neb) 0.5 mg NEB Q12 [facility] Last Admin: 02/02/23 19:18 Dose: 0.5 mg Ceftriaxone Sodium (Ceftriaxone 1 Gm Vial) 1 gm IV Q24H [facility] Last Admin: 02/02/23 08:49 Dose: 1 gm Docusate Sodium (Docusate Sodium 100 Mg Capsule) 100 mg PO BID [facility] Last Admin: 02/02/23 21:48 Dose: 100 mg Enoxaparin Sodium (Enoxaparin 100 Mg/Ml Syringe) 100 mg SQ BID [facility] Last Admin: 02/02/23 21:48 Dose: 100 mg Furosemide (Furosemide 100 Mg/10 Ml Vial) 80 mg IV TID [facility] Last Admin: 02/02/23 21:48 Dose: 80 mg Lactulose (Lactulose 20 Gm/30 Ml Oral.Gayatri) 10 gm PO DAILYP PRN PRN Reason: Constipation Metoprolol Tartrate (Metoprolol Tartrate 25 Mg Tablet) 25 mg PO BID [facility] Last Admin: 02/02/23 21:48 Dose: 25 mg Ondansetron HCl (Ondansetron 4 Mg/2 Ml Vial) 4 mg IV Q4HP PRN; Protocol PRN Reason: Nausea And Vomiting Last Admin: 02/02/23 01:44 Dose: 4 mg Ondansetron HCl (Ondansetron 4 Mg Odt Tablet) 4 mg SL Q4HP PRN; Protocol PRN Reason: Nausea And Vomiting Oxycodone HCl (Oxycodone Ir 5 Mg Tablet) 1 mg PO Q4HP PRN PRN Reason: Per Pain Protocol Potassium Chloride (Potassium Chloride 20 Meq Tablet) 20 meq PO BIDCC [facility] Last Admin: 02/02/23 15:35 Dose: Not Given Senna (Sennosides 1 Tablet) 2 tab PO HSP PRN PRN Reason: Constipation Last Admin: 02/01/23 21:08 Dose: 2 tab Sodium Chloride (0.9 % Sodium Chloride 10 Ml Syringe) 10 ml IV Q8 [facility] Last Admin: 02/03/23 05:55 Dose: 10 ml Sodium Chloride (0.9 % Sodium Chloride 10 Ml Syringe) 10 ml IV Q8 [facility] Last Admin: 02/03/23 05:55 Dose: Not Given A/P Narrative A/P Narrative: A: #acute on chronic diastolic CHF and Right(moderate) HF and Valvular dz (mod TR): -good UOP #Anasarca and Pleural effusions: #Pulmonary hypertension: #chronic Afib w/RVR: #PNA, b/l: #Sepsis: 2/2 uti and pna #UTI(ESBL e.coli),complicated: #prelim blood cx with strep pneumoniae 1/4 bottles, repeat BC's neg: #COPD w/chronic hypoxia (3 L/min) and Exacerbation: #Acute on chronic hypoxic respiratory failure: 2/2 above -Patient with respiratory distress requiring BiPAP initially -Now weaned down to 3-4 L nasal cannula oxygen. #contraction alkalsosis: #Oropharyngeal Dysphagai, mild-mod: #CKD IIIb: #Anemia, chronic: #Obesity: bmi 34, Lifestyle modifications #GERD: #Generalized weakness/deconditioning: Plan: -IV lasix, monitor for developing contraction alkalosis -Monitor UOP -Monitor weight daily. Strict input and output -Monitor renal functions and electrolytes -lopressor 25 bid -Anticoagulation with Lovenox started, likely transition to eliquis -start carbapenem -Continue DuoNebs, budesonide, pulmonary toileting, supplemental oxygen as needed and wean -diet per ST -PT consult -ppx: Lovenox SQ / home ppi Time Spent With Patient Time: Total time spent is greater than 50% in coordination of care (as documented) at patient's floor/unit and/or counseling patient: Subsequent: Total time with patient: 50 - 65 Minutes QUALITY VTE Deep Vein Thrombosis/Pulmonary Embolism Present on Admission: No
--- NOTE | 2023-02-03 08:35 | XRay Report ---
HISTORY: Comment follow-up pleural effusions and compressive atelectasis FINDINGS: There are densely consolidating infiltrates in both lungs involving the lower two thirds. There are several air bronchograms above the diaphragms. Superimposed are small to intermediate sized bilateral pleural effusions. There is relatively normal aeration of the lung apices. The heart is obscured by the consolidation. Comparison with the prior exam from 01/29/23 shows minor improvement in the right upper lobe. IMPRESSION: Persistent diffuse infiltrates, bilateral pleural effusions and minor improvement in the right upper lobe Interpreted and Authenticated by: Adán Vera 02/03/23
[2023-02-03] MEDS: DOCUSATE SODIUM 100 MG CAPSULE PO SCH ×2 (09:26→20:42)
[2023-02-03] MEDS: ENOXAPARIN 100 MG/ML SYRINGE SQ SCH ×2 (09:26→20:42)
[2023-02-03] MEDS: MEROPENEM 1 GM in 0.9 % SODIUM CHLORIDE 50 ML IV SCH ×3 (09:26→21:38)
[2023-02-03] MEDS: METOPROLOL TARTRATE 25 MG TABLET PO SCH ×2 (09:26→20:43)
[2023-02-03] MEDS: POTASSIUM CHLORIDE 20 MEQ TABLET PO SCH (09:27)
--- NOTE | 2023-02-03 12:03 | Discharge Summary ---
Discharge Provider Provider IMPORTANT FOLLOW-UP INFORMATION FOR PCP: Patient information: Note initiated : 02/03/23 at 11:59 am Service Date, if different from initiated Date: [] Patient: Nakul Andrew 77 y/o M admitted on 01/30/23 for Shortness of Breath. Chief Complaint: [] Date of admission: 01/30/23 00:29 Primary care physician: Gerogi Waller PA-C Consults: 01/30/23 Consult to Physician [CONS] Stat Comment: Consulting Provider: Tanner Jensen Reason For Exam: Physician to Consult COURSE Hospital Course Hospital course: History of present illness: Patient is a 77-year-old male with a history of CHF on torsemide, COPD on 2 L nasal cannula oxygen, CKD stage III, anemia presented with shortness of breath, anasarca, worsening peripheral edema. Patient reports that he had brain injuri es in the past and not sure what is going on. Staff at assisted living are concerned about aspiration since patient was noted to be choking on his food. Patient states that he was short of breath prior to arrival, but states that with oxygen on he feels much better. He denies any symptoms at this time. On presentation he was in distress with respiratory rate of 29, he was hypoxic and was placed on BiPAP for work of breathing. CBC showed WBC of 16.4, hemoglobin 8.5. D-dimer 2.49 elevated, VBG showed pH 7.28, PCO2 71, HCO3 33. Cr 1.5 at baseline, elevated BNP of 15,000, negative troponin, equivocal procalcitonin 0.25. UA with presence of RBC, WBC, leukocyte esterase, many bacteria concerning for UTI. 1 of 2 blood culture bottle positive for gram-positive cocci. EKG showed Afib with RVR, ventricular rate 139 bpm, nonspecific ST-T wave changes. CTA chest with large bilateral pleural effusions resulting in complete compressive atelectasis of both lower lobes with subsegmental atelectasis upper lobes. CT abdomen with cirrhosis, thickening of transitional epithelium in left upper collecting system creating 22 mm mass concerning for pyelonephritis versus transitional cell carcinoma. Also showed moderate congestive heart failure features with moderate cardiomegaly, small pericardial effusion, large bilateral pleural effusion, subcutaneous edema. Diffuse wall thickening of urinary bladder unchanged likely secondary to chronic prostatism. Please see full report. 01/31 [address] is way more alert and coherent today. Bilateral lower leg swelling is improving, he reports she noted legs were getting worse for several weeks. He is diuresing well on IV Lasix, per nursing staff he had 4 L urine output past 24 hours. Leukocytosis has resolved. Initial blood culture positive for gram- positive cocci, repeat blood culture ordered today. Serum creatinine 1.4 . Echocardiogram completed this morning but report is pending. 02/01. Feels well. Urine output around 5.7 L yesterday, electrolytes and renal function stable. Will start him on scheduled potassium supplementation since its drifting down slowly. Will increase IV Lasix to 80 mg 3 times daily. Blood culture from 01/29 is presumptively positive for Streptococcus pneumonia, urine culture positive for gram-negative bacilli. Repeat blood culture from 01/31 team negative to date. 02/02 patient reports breathing is better, urine output around 4.2 L over past 24 hours, electrolytes stable, serum creatinine improved to 1.2 from 1.3 before. His weight is down to 102 kg from 113kg on admission, weight loss of around 24 pounds. He still has over 2+ peripheral edema. Echocardiogram is now available. EF 60-65%, right ventricle systolic function moderately reduced, both atria are moderately dilated, mild MR, moderate to severe tricuspid regurgitation. Estimated pulmonary artery pressure 57 mmHg. When compared to last echo dated 11/27/2021, right ventricle dysfunction is new and pulmonary pressure worse 02/03 Patient on 4 L nasal cannula overnight. Patient on 3 L at home typically. Patient has cough productive of yellow sputum. Shortness of breath present but improving. Patient complains of headache. Patient still quite edematous. Decreased urine output with last Lasix dose. We will add albumin to next dose. ESBL E. coli found and antibiotics changed to Merrem. Follow-up x-ray with dense consolidations by basilar. Small intermediate effusions. A: #acute on chronic diastolic CHF and Right(moderate) HF and Valvular dz (mod TR): #Anasarca and Pleural effusions: #Pulmonary hypertension: #chronic Afib w/RVR: #PNA, b/l: #Sepsis: 2/2 uti and pna #UTI(ESBL e.coli),complicated: #prelim blood cx with strep pneumoniae 1/4 bottles, repeat BC's neg: #COPD w/chronic hypoxia (3 L/min) and Exacerbation: #Acute on chronic hypoxic respiratory failure: 2/2 above #contraction alkalsosis: #Oropharyngeal Dysphagia, mild-mod: #CKD IIIb: #Anemia, chronic: #Obesity: bmi 34, Lifestyle modifications #GERD: #Generalized weakness/deconditioning: Plan: -Torsemide -cont BB -Eliquis -finish course of Ertapenem for ESBL UTI Discharge diagnosis: A-fib RVR CHF ESBL E. coli UTI pneumonia sepsis Secondary discharge diagnosis: COPD hypoxia oropharyngeal dysphagia CKD anemia obesity GERD generalized weakness deconditioning Time Spent with Patient Time attestation: Total time spent providing and/or coordinating discharge services: Time spent: Greater than 30 minutes EXAM Constitutional Vitals: Temp Pulse Resp BP Pulse Ox O2 Del Method O2 Flow Rate 99.2 F H 91 H 32 H 109/60 89 L Nasal Cannula 3 02/03/23 10:01 02/03/23 10:02/03/23 10:02/03/23 10:01 02/03/23 10:02/03/23 10:01 02/03/23 10:01 Discharge Data Data Completed and Pending Labs on day of discharge: Labs from last 24 hours 02/03/23 05:47 Sodium 140 Potassium 4.9 Chloride 100 Carbon Dioxide 37 H Anion Gap 3.0 L BUN 31 H Creatinine 1.3 H GFR Calculation 52 Glucose 102 Uric Acid 10.0 H Calcium 9.2 Phosphorus 3.5 Magnesium 2.1 Total Bilirubin 0.3 Direct Bilirubin < 0.2 GGT 13 AST 14 ALT 9 Alkaline Phosphatase 88 Lactate Dehydrogenase 157 NT-Pro-B Natriuret Pep 29092.0 H Total Protein 7.0 Albumin 2.5 L Globulin 4.5 H Albumin/Globulin Ratio 0.6 L Triglycerides 66 Preliminary micro results at discharge 01/29/23 17:31 Blood Culture - Preliminary Blood Streptococcus pneumoniae 01/29/23 17:25 Blood Culture - Preliminary Blood 01/31/23 12:54 Blood Culture - Preliminary Blood 01/31/23 12:57 Blood Culture - Preliminary Blood Discharge Plan Patient/Caregiver Discharge Instructions Activity: resume usual activities as tolerated Diet: Dysphagia Level 6 Soft & Bite-Sized Foods Prescriptions: New Eliquis 5 mg tablet 5 mg PO BID Qty: 60 0RF Continued albuterol sulfate [ProAir HFA] 90 mcg/actuation Hfa Aerosol Inhaler 2 puff INHALATION QID PRN (Reason: Shortness Of Breath) tamsulosin [Flomax] 0.4 mg Capsule 0.4 mg PO QDAY hydrocodone-acetaminophen 10-325 mg Tablet 1 tab PO Q8H PRN (Reason: Pain) magnesium hydroxide [Milk of Magnesia] 400 mg/5 mL Suspension 30 ml PO QDAY PRN (Reason: constipation) Fleet Enema 19-7 gram/118 mL Enema 118 ml ID PRN PRN (Reason: Constipation) metoprolol tartrate 25 mg Tablet 25 mg PO BID potassium chloride 20 mEq Tablet Extended Release 10 meq PO QDAY omeprazole 20 mg tablet 40 mg PO BID torsemide 20 mg tablet 20 mg PO BID oxycodone 5 mg tablet 5 mg PO Q4HP PRN (Reason: pain) aspirin 81 mg Tablet 81 mg PO QDAY Follow Up Plan Follow up with: Georgi Waller PA-C [Primary Care Provider] - Prognosis: Fair Rehab Potential: Fair I certify that the patient requires SNF services: Yes Overall status at discharge: patient is progressing back to baseline QUALITY VTE Deep Vein Thrombosis/Pulmonary Embolism Present on Admission: No
[2023-02-03] MEDS: diphenhydrAMINE 50 MG/ML VIAL IV PRN (17:55)
[2023-02-04] MEDS: IPRATROPIUM/ALBUTEROL 3 ML AMPUL.NEB NEB SCH ×4 (01:02→19:35)
[2023-02-04] MEDS: MEROPENEM 1 GM in 0.9 % SODIUM CHLORIDE 50 ML IV SCH ×3 (05:39→21:57)
[2023-02-04] MEDS: 0.9 % SODIUM CHLORIDE 10 ML SYRINGE IV SCH ×3 (05:40→22:08)
[2023-02-04] MEDS: BUDESONIDE 0.5 MG/2 ML AMPUL.NEB NEB SCH ×2 (07:01→19:35)
[2023-02-04] MEDS ORDERED: ALBUMIN HUMAN 12.5 GM/50 ML VIAL IV SCH ×2 (07:58→14:38)
[2023-02-04] MEDS ORDERED: FUROSEMIDE 250 MG in 0.9 % SODIUM CHLORIDE 225 ML IV SCH (08:00)
--- NOTE | 2023-02-04 08:01 | Internal Med Progress Note ---
SUBJECTIVE Subjective Patient information: Note initiated : 02/04/23 at 7:54 am Service Date, if different from initiated Date: [] Patient: Nakul Andrew a 77 y/o M admitted on 01/30/23 for Shortness of Breath. Chief Complaint: [] Interval history: History of present illness: Patient is a 77-year-old male with a history of CHF on torsemide, COPD on 2 L nasal cannula oxygen, CKD stage III, anemia presented with shortness of breath, anasarca, worsening peripheral edema. 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 Staff at assisted living are concerned about aspiration since patient was noted to be choking on his food. Patient states that he was short of breath prior to arrival, but states that with oxygen on he feels much better. He denies any symptoms at this time. On presentation he was in distress with respiratory rate of 29, he was hypoxic and was placed on BiPAP for work of breathing. CBC showed WBC of 16.4, hemoglobin 8.5. D-dimer 2.49 elevated, VBG showed pH 7.28, PCO2 71, HCO3 33. Cr 1.5 at baseline, elevated BNP of 15,000, negative troponin, equivocal procalcitonin 0.25. UA with presence of RBC, WBC, leukocyte esterase, many bacteria concerning for UTI. 1 of 2 blood culture bottle positive for gram-positive cocci. EKG showed Afib with RVR, ventricular rate 139 bpm, nonspecific ST-T wave changes. CTA chest with large bilateral pleural effusions resulting in complete compressive atelectasis of both lower lobes with subsegmental atelectasis upper lobes. CT abdomen with cirrhosis, thickening of transitional epithelium in left upper collecting system creating 22 mm mass concerning for pyelonephritis versus transitional cell carcinoma. Also showed moderate congestive heart failure features with moderate cardiomegaly, small pericardial effusion, large bilateral pleural effusion, subcutaneous edema. Diffuse wall thickening of urinary bladder unchanged likely secondary to chronic prostatism. Please see full report. 01/[address] more alert and coherent today. Bilateral lower leg swelling is improving, he reports she noted legs were getting worse for several weeks. He is diuresing well on IV Lasix, per nursing staff he had 4 L urine output past 24 hours. Leukocytosis has resolved. Initial blood culture positive for gram- positive cocci, repeat blood culture ordered today. Serum creatinine 1.4 . Echocardiogram completed this morning but report is pending. 02/01. Feels well. Urine output around 5.7 L yesterday, electrolytes and renal function stable. Will start him on scheduled potassium supplementation since its drifting down slowly. Will increase IV Lasix to 80 mg 3 times daily. Blood culture from 01/29 is presumptively positive for Streptococcus pneumonia, urine culture positive for gram-negative bacilli. Repeat blood culture from 01/31 team negative to date. 02/02 patient reports breathing is better, urine output around 4.2 L over past 24 hours, electrolytes stable, serum creatinine improved to 1.2 from 1.3 before. His weight is down to 102 kg from 113kg on admission, weight loss of around 24 pounds. He still has over 2+ peripheral edema. Echocardiogram is now available. EF 60-65%, right ventricle systolic function moderately reduced, both atria are moderately dilated, mild MR, moderate to severe tricuspid regurgitation. Estimated pulmonary artery pressure 57 mmHg. When compared to last echo dated 11/27/2021, right ventricle dysfunction is new and pulmonary pressure worse 02/03 Patient on 4 L nasal cannula overnight. Patient on 3 L at home typically. Patient has cough productive of yellow sputum. Shortness of breath present but improving. Patient complains of headache. Patient still quite edematous. Decreased urine output with last Lasix dose. We will add albumin to next dose. ESBL E. coli found and antibiotics changed to Merrem. Follow-up x-ray with dense consolidations by basilar. Small intermediate effusions. 02/04 Patient on BiPAP overnight. Has been on nasal cannula oxygen this morning 3L. Sitting up in chair doing well and eating breakfast. Follow-up ABG with good pH. He is hyperkalemic at 5.8. We will stop his home potassium patient is started. We will follow-up potassium later. Patient started on Lasix drip given his continued significant third spacing in the lower extremities. Diamox x1 for metabolic alkalosis. Renal function stable. Review of Systems: denies fever/chills/nausea/vomiting/chest or abdominal pain/diarrhea. Otherwise see above. PHYSICAL EXAM General: Alert, Awake, No acute Distress Eyes/N/T: EOMI, no scleral icterus, Head/Neck: neck supple, full ROM, CV: irreg irreg, 2/6 SM Pulm: diminished b/l, no wheezing, no respiratory distress Abd: soft, nontender, +BS x4 Ext: no clubbing/cyanosis, b/l LE 3+ edema better where comp wraps are, nontender Neuro: Alert,, no focal deficits, moves all extremities, , sensations intact b/l upper/lower Psychiatric: Skin: warm/dry, normal color Constitutional Vitals: Vital Signs Temp Pulse Resp BP Pulse Ox O2 Del Method O2 Flow Rate 98.4 F 68 24 H 104/64 93 BiPAP 0 02/04/23 06:01 02/04/23 07:01 02/04/23 07:01 02/04/23 06:01 02/04/23 07:01 02/04/23 07:01 02/04/23 00:01 Period Temp Pulse Resp BP Sys/Murphy Pulse Ox O2 Del Method O2 Flow Rate Last 24 Hr 98.3 F-99.5 F 62-111 18-33 95-116/54-81 89-100 BiPAP-Nasal Cannula 0-4 Intake and Output 02/03/23 02/04/23 02/04/23 19:59 03:59 11:59 Intake Total 290 100 100 Output Total 675 275 225 Balance -385 -175 -125 Weight 102.512 kg Intake & Output: Intake & Output 02/03/23 02/04/23 02/04/23 19:59 03:59 11:59 Intake Total 290 100 100 Output Total 675 275 225 Balance -385 -175 -125 Weight 102.512 kg Intake: IV 50 50 50 Merrem 1 gm In Sodium Chloride 50 50 50 0.9% 50 ml @ 100 mls/hr IV Q8H [facility] Rx#:[id number] Oral 240 50 50 Output: Urine Catheter Amount 675 275 225 Other: Meal Breakfast Percent of Meal Consumed 100% Feeding Ability Assist with Tray Set Up Urine Appearance Clear Clear Clear Uretheral (Turner) Clear Clear Urine Color Yellow Yellow Yellow Uretheral (Turner) Bright Yellow Bright Yellow # Bowel Movements 0 OBJ DATA Labs 02/02/23 05:32 02/04/23 08:16 Labs: Abnormal Lab Results 02/03/23 02/03/23 02/02/23 14:53 05:47 05:32 RBC Hgb Hct MCH MCHC RDW Neut % (Auto) Lymph % (Auto) Lymph # (Auto) POC pH 7.29 L POC pCO2 86.1 H* POC pO2 62 L POC HCO3 41.2 H POC Total CO2 44.0 H* POC ABG Base Excess 15.0 H ABG Lactic Acid 0.3 L Hgb O2 Saturation 87.0 L Carbon Dioxide 37 H 37 H Anion Gap 3.0 L 6.0 L BUN 31 H 31 H Creatinine 1.3 H Glucose 106 H Uric Acid 10.0 H NT-Pro-B Natriuret Pep 95627.0 H Albumin 2.5 L 2.4 L Globulin 4.5 H 4.3 H Albumin/Globulin Ratio 0.6 L 0.6 L 02/02/23 05:32 RBC 3.39 L Hgb 8.7 L Hct 30.0 L MCH 25.7 L MCHC 29.0 L RDW 20.8 H Neut % (Auto) 79.5 H Lymph % (Auto) 6.9 L Lymph # (Auto) 0.45 L POC pH POC pCO2 POC pO2 POC HCO3 POC Total CO2 POC ABG Base Excess ABG Lactic Acid Hgb O2 Saturation Carbon Dioxide Anion Gap BUN Creatinine Glucose Uric Acid NT-Pro-B Natriuret Pep Albumin Globulin Albumin/Globulin Ratio Meds: Medications Acetaminophen (Acetaminophen 325 Mg Tablet) 650 mg PO Q6HP PRN; Protocol PRN Reason: Per Pain Protocol/Fever > 101 Last Admin: 02/02/23 15:25 Dose: 650 mg Hydrocodone Bitart/Acetaminophen (Hydrocodone/Apap 10/325mg Tablet) 1 tab PO Q8HP PRN; Protocol PRN Reason: Per Pain Protocol Last Admin: 01/30/23 21:54 Dose: 1 tab Albuterol/Ipratropium (Ipratropium/Albuterol 3 Ml Ampul.Neb) 3 ml NEB Q6HRT [facility] Last Admin: 02/04/23 07:01 Dose: 3 ml Bisacodyl (Bisacodyl 5 Mg Tablet) 10 mg PO DAILYP PRN PRN Reason: Constipation Budesonide (Budesonide 0.5 Mg/2 Ml Ampul.Neb) 0.5 mg NEB Q12 [facility] Last Admin: 02/04/23 07:01 Dose: 0.5 mg Diphenhydramine HCl (Diphenhydramine 50 Mg/Ml Vial) 25 mg IV Q6HP PRN PRN Reason: anxiety Last Admin: 02/03/23 17:55 Dose: 25 mg Docusate Sodium (Docusate Sodium 100 Mg Capsule) 100 mg PO BID [facility] Last Admin: 02/03/23 20:42 Dose: 100 mg Enoxaparin Sodium (Enoxaparin 100 Mg/Ml Syringe) 100 mg SQ BID [facility] Last Admin: 02/03/23 20:42 Dose: 100 mg Meropenem 1 gm/ Sodium (Chloride) 50 mls @ 100 mls/hr IV Q8H [facility]; Protocol Last Infusion: 02/04/23 06:10 Dose: Infused Lactulose (Lactulose 20 Gm/30 Ml Oral.Gayatri) 10 gm PO DAILYP PRN PRN Reason: Constipation Metoprolol Tartrate (Metoprolol Tartrate 25 Mg Tablet) 25 mg PO BID [facility] Last Admin: 02/03/23 20:43 Dose: 25 mg Ondansetron HCl (Ondansetron 4 Mg/2 Ml Vial) 4 mg IV Q4HP PRN; Protocol PRN Reason: Nausea And Vomiting Last Admin: 02/02/23 01:44 Dose: 4 mg Ondansetron HCl (Ondansetron 4 Mg Odt Tablet) 4 mg SL Q4HP PRN; Protocol PRN Reason: Nausea And Vomiting Oxycodone HCl (Oxycodone Ir 5 Mg Tablet) 1 mg PO Q4HP PRN PRN Reason: Per Pain Protocol Potassium Chloride (Potassium Chloride 20 Meq Tablet) 20 meq PO [facility] Senna (Sennosides 1 Tablet) 2 tab PO HSP PRN PRN Reason: Constipation Last Admin: 02/01/23 21:08 Dose: 2 tab Sodium Chloride (0.9 % Sodium Chloride 10 Ml Syringe) 10 ml IV Q8 [facility] Last Admin: 02/04/23 05:40 Dose: 10 ml A/P Narrative A/P Narrative: A: #acute on chronic diastolic CHF and Right(moderate) HF and Valvular dz (mod TR): -good UOP #Anasarca and Pleural effusions: slowly improving #Pulmonary hypertension: #chronic Afib w/RVR: better rate control #PNA, b/l: #Sepsis: 2/2 uti and pna #UTI(ESBL e.coli),complicated: #prelim blood cx with strep pneumoniae 1/4 bottles, repeat BC's neg: #COPD w/chronic hypoxia (3 L/min) and Exacerbation: #Acute on chronic hypoxic respiratory failure: 2/2 above -Patient with respiratory distress requiring BiPAP initially -Weaned down to 3-4 L nasal cannula oxygen but then required BIpap again yesterday for CO2 retention #contraction alkalosis: diamox x1 today #Oropharyngeal Dysphagai, mild-mod: #CKD IIIb: #Anemia, chronic: #Obesity: bmi 34, Lifestyle modifications #GERD: #Generalized weakness/deconditioning: *Hyperkalemia: Plan: -wean off Bipap, f/u ABG -less effect with bolus lasix lately and still quite edematous, start lasix gtt -monitor for contraction alkalosis -IS/Acapella -d/c home potassium, f/u lab later today -Monitor UOP -Monitor weight daily. Strict input and output -Monitor renal functions and electrolytes -lopressor 25 bid -Anticoagulation with Lovenox started, likely transition to eliquis -started carbapenem -Continue DuoNebs, budesonide, pulmonary toileting, supplemental oxygen as nee ded and wean -diet per ST -PT consult -ppx: Lovenox SQ / home ppi Time Spent With Patient Time: Total time spent is greater than 50% in coordination of care (as documented) at patient's floor/unit and/or counseling patient: Subsequent: Total time with patient: 50 - 65 Minutes QUALITY VTE Deep Vein Thrombosis/Pulmonary Embolism Present on Admission: No
[2023-02-04] MEDS ORDERED: acetaZOLAMIDE SOD 500 MG VIAL IV SCH (09:00)
[2023-02-04] MEDS: ENOXAPARIN 100 MG/ML SYRINGE SQ SCH ×2 (09:01→21:57)
[2023-02-04] MEDS: DOCUSATE SODIUM 100 MG CAPSULE PO SCH ×2 (09:01→22:08)
[2023-02-04] MEDS: METOPROLOL TARTRATE 25 MG TABLET PO SCH ×2 (09:02→21:56)
[2023-02-04] MEDS: POTASSIUM CHLORIDE 20 MEQ TABLET PO SCH ×2 (09:02→09:35)
[2023-02-04] MEDS: ONDANSETRON 4 MG/2 ML VIAL IV PRN (09:18)
[2023-02-04 09:19] LABS: Blood Urea Nitrogen 33 mg/dL (8-23); Calcium 9.1 mg/dL (8.6-10.4); Carbon Dioxide 37 mmol/L (22-30); Chloride 98 mmol/L (96-108); Glomerular Filtration Rate 52; Glucose 87 mg/dL (70-105)
[2023-02-04] MEDS: diphenhydrAMINE 50 MG/ML VIAL IV PRN (21:56)
[2023-02-05] MEDS: IPRATROPIUM/ALBUTEROL 3 ML AMPUL.NEB NEB SCH ×3 (03:03→19:16)
[2023-02-05] MEDS: MEROPENEM 1 GM in 0.9 % SODIUM CHLORIDE 50 ML IV SCH ×3 (06:05→21:40)
[2023-02-05] MEDS: 0.9 % SODIUM CHLORIDE 10 ML SYRINGE IV SCH ×3 (06:06→21:40)
[2023-02-05 06:36] LABS: ALT/SGPT 6 U/L (<40); AST/SGOT 10 U/L (<40); Albumin 2.4 gm/dL (3.2-5.2); Albumin/Globulin Ratio 0.6 (1.0-2.3); Alkaline Phosphatase 69 U/L (39-117); Bilirubin,Direct < 0.2 mg/dL (0-0.3); Bilirubin,Total 0.3 mg/dL (0.1-1.0); Blood Urea Nitrogen 31 mg/dL (8-23); Calcium 8.7 mg/dL (8.6-10.4); Carbon Dioxide 36 mmol/L (22-30); Chloride 99 mmol/L (96-108); Glomerular Filtration Rate 48; Glucose 83 mg/dL (70-105); Lactate Dehydrogenase 121 U/L (135-225); Phosphorous 2.7 mg/dL (2.5-4.5); Triglycerides 60 mg/dL (<150); Uric Acid 10.2 mg/dL (2.5-8.0)
--- NOTE | 2023-02-05 08:09 | Internal Med Progress Note ---
SUBJECTIVE Subjective Patient information: Note initiated : 02/05/23 at 8:05 am Service Date, if different from initiated Date: [] Patient: Nakul Andrew a 77 y/o M admitted on 01/30/23 for Shortness of Breath. Chief Complaint: [] Interval history: History of present illness: Patient is a 77-year-old male with a history of CHF on torsemide, COPD on 2 L nasal cannula oxygen, CKD stage III, anemia presented with shortness of breath, anasarca, worsening peripheral edema. 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 Staff at assisted living are concerned about aspiration since patient was noted to be choking on his food. Patient states that he was short of breath prior to arrival, but states that with oxygen on he feels much better. He denies any symptoms at this time. On presentation he was in distress with respiratory rate of 29, he was hypoxic and was placed on BiPAP for work of breathing. CBC showed WBC of 16.4, hemoglobin 8.5. D-dimer 2.49 elevated, VBG showed pH 7.28, PCO2 71, HCO3 33. Cr 1.5 at baseline, elevated BNP of 15,000, negative troponin, equivocal procalcitonin 0.25. UA with presence of RBC, WBC, leukocyte esterase, many bacteria concerning for UTI. 1 of 2 blood culture bottle positive for gram-positive cocci. EKG showed Afib with RVR, ventricular rate 139 bpm, nonspecific ST-T wave changes. CTA chest with large bilateral pleural effusions resulting in complete compressive atelectasis of both lower lobes with subsegmental atelectasis upper lobes. CT abdomen with cirrhosis, thickening of transitional epithelium in left upper collecting system creating 22 mm mass concerning for pyelonephritis versus transitional cell carcinoma. Also showed moderate congestive heart failure features with moderate cardiomegaly, small pericardial effusion, large bilateral pleural effusion, subcutaneous edema. Diffuse wall thickening of urinary bladder unchanged likely secondary to chronic prostatism. Please see full report. 01/31 [address] is way more alert and coherent today. Bilateral lower leg swelling is improving, he reports she noted legs were getting worse for several weeks. He is diuresing well on IV Lasix, per nursing staff he had 4 L urine output past 24 hours. Leukocytosis has resolved. Initial blood culture positive for gram- positive cocci, repeat blood culture ordered today. Serum creatinine 1.4 . Echocardiogram completed this morning but report is pending. 02/01. Feels well. Urine output around 5.7 L yesterday, electrolytes and renal function stable. Will start him on scheduled potassium supplementation since its drifting down slowly. Will increase IV Lasix to 80 mg 3 times daily. Blood culture from 01/29 is presumptively positive for Streptococcus pneumonia, urine culture positive for gram-negative bacilli. Repeat blood culture from 01/31 team negative to date. 02/02 patient reports breathing is better, urine output around 4.2 L over past 24 hours, electrolytes stable, serum creatinine improved to 1.2 from 1.3 before. His weight is down to 102 kg from 113kg on admission, weight loss of around 24 pounds. He still has over 2+ peripheral edema. Echocardiogram is now available. EF 60-65%, right ventricle systolic function moderately reduced, both atria are moderately dilated, mild MR, moderate to severe tricuspid regurgitation. Estimated pulmonary artery pressure 57 mmHg. When compared to last echo dated 11/27/2021, right ventricle dysfunction is new and pulmonary pressure worse 02/03 Patient on 4 L nasal cannula overnight. Patient on 3 L at home typically. Patient has cough productive of yellow sputum. Shortness of breath present but improving. Patient complains of headache. Patient still quite edematous. Decreased urine output with last Lasix dose. We will add albumin to next dose. ESBL E. coli found and antibiotics changed to Merrem. Follow-up x-ray with dense consolidations by basilar. Small intermediate effusions. 02/04 Patient on BiPAP overnight. Has been on nasal cannula oxygen this morning 3L. Sitting up in chair doing well and eating breakfast. Follow-up ABG with good pH. He is hyperkalemic at 5.8. We will stop his home potassium patient is started. We will follow-up potassium later. Patient started on Lasix drip given his continued significant third spacing in the lower extremities. Diamox x1 for metabolic alkalosis. Renal function stable. 02/05 Patient on BiPAP overnight it sounds like he felt more comfortable with it on and thus it was placed. Patient sleeping with it on currently. Is awake. Discussed with him that we cannot send him on BiPAP so that we tonight we will see how he does without BiPAP. Review of Systems: denies fever/chills/nausea/vomiting/chest or abdominal pain/diarrhea. Otherwise see above. PHYSICAL EXAM General: Alert, Awake, No acute Distress Eyes/N/T: EOMI, no scleral icterus, Head/Neck: neck supple, full ROM, CV: irreg irreg, 2/6 SM Pulm: diminished b/l, no wheezing, no respiratory distress Abd: soft, nontender, +BS x4 Ext: no clubbing/cyanosis, b/l LE 1+ edema, nontender Neuro: Alert,, no focal deficits, moves all extremities, , sensations intact b/l upper/lower Psychiatric: Skin: warm/dry, normal color Constitutional Vitals: Vital Signs Temp Pulse Resp BP Pulse Ox O2 Del Method O2 Flow Rate 98.3 F 72 17 95/50 97 BiPAP 4 02/05/23 08:03 02/05/23 08:03 02/05/23 08:03 02/05/23 08:01 02/05/23 08:03 02/05/23 05:02 02/04/23 19:36 Period Temp Pulse Resp BP Sys/Murphy Pulse Ox O2 Del Method O2 Flow Rate Last 24 Hr 98.3 F-99.3 F 66-103 14-30 89-119/50-79 30-100 BiPAP-Nasal Cannula 3-4 Intake and Output 02/04/23 02/05/23 02/05/23 19:59 03:59 11:59 Intake Total 595 150 Output Total 162 270 160 Balance 433 -120 -160 Weight 103.102 kg Intake & Output: Intake & Output 02/04/23 02/05/23 02/05/23 19:59 03:59 11:59 Intake Total 595 150 Output Total 162 270 160 Balance 433 -120 -160 Weight 103.102 kg Intake: IV 235 50 Lasix 250 mg In Sodium Chloride 135 0.9% 225 ml @ 10 MG/HR 10 mls/ hr IV Q24H [facility] Rx#:[id number] Merrem 1 gm In Sodium Chloride 50 50 0.9% 50 ml @ 100 mls/hr IV Q8H [facility] Rx#:[id number] Oral 360 100 Output: Urine Catheter Amount 162 270 160 Other: Meal Dinner Percent of Meal Consumed 50% Feeding Ability Assist with Tray Set Up Urine Appearance Clear Clear Clear Uretheral (Turner) Clear Urine Color Yellow Yellow Yellow Uretheral (Turner) Yellow Stool Size Moderate Stool Color Brown Stool Consistency Soft # Bowel Movements 1 # of times incontinent of 1 Bowels OBJ DATA Labs 02/02/23 05:32 02/05/23 05:35 Labs: Abnormal Lab Results 02/05/23 02/04/23 02/04/23 05:35 10:14 08:16 POC pH 7.34 L POC pCO2 77.7 H* POC pO2 65 L POC HCO3 41.5 H POC Total CO2 44.0 H* POC ABG Base Excess 16.0 H ABG Lactic Acid 0.4 L Hgb O2 Saturation 89.0 L Potassium 5.8 H Carbon Dioxide 36 H 37 H Anion Gap 5.0 L 4.0 L BUN 31 H 33 H Creatinine 1.4 H 1.3 H Glucose Uric Acid 10.2 H Lactate Dehydrogenase 121 L NT-Pro-B Natriuret Pep Albumin 2.4 L Globulin 4.0 H Albumin/Globulin Ratio 0.6 L 02/03/23 02/03/23 02/02/23 14:53 05:47 05:32 POC pH 7.29 L POC pCO2 86.1 H* POC pO2 62 L POC HCO3 41.2 H POC Total CO2 44.0 H* POC ABG Base Excess 15.0 H ABG Lactic Acid 0.3 L Hgb O2 Saturation 87.0 L Potassium Carbon Dioxide 37 H 37 H Anion Gap 3.0 L 6.0 L BUN 31 H 31 H Creatinine 1.3 H Glucose 106 H Uric Acid 10.0 H Lactate Dehydrogenase NT-Pro-B Natriuret Pep 65146.0 H Albumin 2.5 L 2.4 L Globulin 4.5 H 4.3 H Albumin/Globulin Ratio 0.6 L 0.6 L Meds: Medications Acetaminophen (Acetaminophen 325 Mg Tablet) 650 mg PO Q6HP PRN; Protocol PRN Reason: Per Pain Protocol/Fever > 101 Last Admin: 02/02/23 15:25 Dose: 650 mg Hydrocodone Bitart/Acetaminophen (Hydrocodone/Apap 10/325mg Tablet) 1 tab PO Q8HP PRN; Protocol PRN Reason: Per Pain Protocol Last Admin: 01/30/23 21:54 Dose: 1 tab Acetazolamide Sodium (Acetazolamide Sod 500 Mg Vial) 500 mg IV DAILY [facility] Last Admin: 02/04/23 09:01 Dose: 500 mg Albuterol/Ipratropium (Ipratropium/Albuterol 3 Ml Ampul.Neb) 3 ml NEB Q8H [facility] Last Admin: 02/05/23 03:03 Dose: 3 ml Bisacodyl (Bisacodyl 5 Mg Tablet) 10 mg PO DAILYP PRN PRN Reason: Constipation Budesonide (Budesonide 0.5 Mg/2 Ml Ampul.Neb) 0.5 mg NEB Q12 [facility] Last Admin: 02/04/23 19:35 Dose: 0.5 mg Diphenhydramine HCl (Diphenhydramine 50 Mg/Ml Vial) 25 mg IV Q6HP PRN PRN Reason: anxiety Last Admin: 02/04/23 21:56 Dose: 25 mg Docusate Sodium (Docusate Sodium 100 Mg Capsule) 100 mg PO BID [facility] Last Admin: 02/04/23 22:08 Dose: Not Given Enoxaparin Sodium (Enoxaparin 100 Mg/Ml Syringe) 100 mg SQ BID [facility] Last Admin: 02/04/23 21:57 Dose: 100 mg Meropenem 1 gm/ Sodium (Chloride) 50 mls @ 100 mls/hr IV Q8H [facility]; Protocol Last Admin: 02/05/23 06:05 Dose: 100 mls/hr Lactulose (Lactulose 20 Gm/30 Ml Oral.Gayatri) 10 gm PO DAILYP PRN PRN Reason: Constipation Metoprolol Tartrate (Metoprolol Tartrate 25 Mg Tablet) 25 mg PO BID [facility] Last Admin: 02/04/23 21:56 Dose: 25 mg Ondansetron HCl (Ondansetron 4 Mg/2 Ml Vial) 4 mg IV Q4HP PRN; Protocol PRN Reason: Nausea And Vomiting Last Admin: 02/04/23 09:18 Dose: 4 mg Ondansetron HCl (Ondansetron 4 Mg Odt Tablet) 4 mg SL Q4HP PRN; Protocol PRN Reason: Nausea And Vomiting Oxycodone HCl (Oxycodone Ir 5 Mg Tablet) 1 mg PO Q4HP PRN PRN Reason: Per Pain Protocol Senna (Sennosides 1 Tablet) 2 tab PO HSP PRN PRN Reason: Constipation Last Admin: 02/01/23 21:08 Dose: 2 tab Sodium Chloride (0.9 % Sodium Chloride 10 Ml Syringe) 10 ml IV Q8 [facility] Last Admin: 02/05/23 06:06 Dose: 10 ml A/P Narrative A/P Narrative: A: #acute on chronic diastolic CHF and Right(moderate) HF and Valvular dz (mod TR): -improved #Anasarca and Pleural effusions: slowly improving #Pulmonary hypertension: #chronic Afib w/RVR: better rate control #PNA, b/l: #Sepsis: 2/2 uti and pna #UTI(ESBL e.coli),complicated: #strep pneumoniae 1/ bottles, repeat BC's neg: #COPD w/chronic hypoxia (3 L/min) and Exacerbation: #Acute on chronic hypoxic respiratory failure: 2/2 above -Patient with respiratory distress requiring BiPAP initially -Weaned down to 3 L nasal cannula oxygen but then required BIpap again on for CO2 retention - #contraction alkalosis: s/p diamox and holding of further diuresis #Oropharyngeal Dysphagai, mild-mod: #CKD IIIb: #Anemia, chronic: #Obesity: bmi 34, Lifestyle modifications #GERD: #Generalized weakness/deconditioning: *Hyperkalemia: *BPH: cont home flomax Plan: -minimize use of Bipap if possible -d/c diuresis for now -monitor for contraction alkalosis -IS/Acapella -d/c'd home potassium -Monitor UOP -Monitor weight daily. Strict input and output -Monitor renal functions and electrolytes -lopressor 25 bid -Anticoagulation with Lovenox started, likely transition to eliquis -started carbapenem -Continue DuoNebs, budesonide, pulmonary toileting, supplemental oxygen as needed and wean -diet per ST -PT consult -ppx: Lovenox SQ / home ppi Time Spent With Patient Time: Total time spent is greater than 50% in coordination of care (as documented) at patient's floor/unit and/or counseling patient: Subsequent: Total time with patient: 50 - 65 Minutes QUALITY VTE Deep Vein Thrombosis/Pulmonary Embolism Present on Admission: No
[2023-02-05] MEDS: ENOXAPARIN 100 MG/ML SYRINGE SQ SCH ×2 (08:28→20:42)
[2023-02-05] MEDS: OMEPRAZOLE 20 MG CAPSULE PO SCH ×2 (08:28→16:24)
[2023-02-05] MEDS: TAMSULOSIN 0.4 MG CAPSULE PO SCH (08:28)
[2023-02-05] MEDS: METOPROLOL TARTRATE 25 MG TABLET PO SCH ×2 (08:28→20:42)
[2023-02-05] MEDS: DOCUSATE SODIUM 100 MG CAPSULE PO SCH ×2 (08:28→20:42)
[2023-02-05] MEDS: BUDESONIDE 0.5 MG/2 ML AMPUL.NEB NEB SCH ×2 (10:17→19:16)
[2023-02-05] MEDS: diphenhydrAMINE 50 MG/ML VIAL IV PRN (20:42)
[2023-02-06] MEDS: IPRATROPIUM/ALBUTEROL 3 ML AMPUL.NEB NEB SCH ×3 (03:29→19:24)
[2023-02-06] MEDS: MEROPENEM 1 GM in 0.9 % SODIUM CHLORIDE 50 ML IV SCH ×3 (05:48→21:35)
[2023-02-06] MEDS: 0.9 % SODIUM CHLORIDE 10 ML SYRINGE IV SCH ×3 (05:48→21:35)
[2023-02-06] MEDS: OMEPRAZOLE 20 MG CAPSULE PO SCH ×2 (08:02→17:03)
[2023-02-06] MEDS: diphenhydrAMINE 50 MG/ML VIAL IV PRN ×3 (08:03→23:36)
[2023-02-06] MEDS: METOPROLOL TARTRATE 25 MG TABLET PO SCH ×2 (08:03→21:35)
[2023-02-06] MEDS: TAMSULOSIN 0.4 MG CAPSULE PO SCH (08:03)
[2023-02-06] MEDS: ENOXAPARIN 100 MG/ML SYRINGE SQ SCH (08:04)
--- NOTE | 2023-02-06 08:04 | Internal Med Progress Note ---
SUBJECTIVE Subjective Patient information: Note initiated : 02/06/23 at 7:57 am Service Date, if different from initiated Date: [] Patient: Nakul Andrew a 77 y/o M admitted on 01/30/23 for Shortness of Breath. Chief Complaint: [] Interval history: History of present illness: Patient is a 77-year-old male with a history of CHF on torsemide, COPD on 2 L nasal cannula oxygen, CKD stage III, anemia presented with shortness of breath, anasarca, worsening peripheral edema. 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 Staff at assisted living are concerned about aspiration since patient was noted to be choking on his food. Patient states that he was short of breath prior to arrival, but states that with oxygen on he feels much better. He denies any symptoms at this time. On presentation he was in distress with respiratory rate of 29, he was hypoxic and was placed on BiPAP for work of breathing. CBC showed WBC of 16.4, hemoglobin 8.5. D-dimer 2.49 elevated, VBG showed pH 7.28, PCO2 71, HCO3 33. Cr 1.5 at baseline, elevated BNP of 15,000, negative troponin, equivocal procalcitonin 0.25. UA with presence of RBC, WBC, leukocyte esterase, many bacteria concerning for UTI. 1 of 2 blood culture bottle positive for gram-positive cocci. EKG showed Afib with RVR, ventricular rate 139 bpm, nonspecific ST-T wave changes. CTA chest with large bilateral pleural effusions resulting in complete compressive atelectasis of both lower lobes with subsegmental atelectasis upper lobes. CT abdomen with cirrhosis, thickening of transitional epithelium in left upper collecting system creating 22 mm mass concerning for pyelonephritis versus transitional cell carcinoma. Also showed moderate congestive heart failure features with moderate cardiomegaly, small pericardial effusion, large bilateral pleural effusion, subcutaneous edema. Diffuse wall thickening of urinary bladder unchanged likely secondary to chronic prostatism. Please see full report. 01/[address] more alert and coherent today. Bilateral lower leg swelling is improving, he reports she noted legs were getting worse for several weeks. He is diuresing well on IV Lasix, per nursing staff he had 4 L urine output past 24 hours. Leukocytosis has resolved. Initial blood culture positive for gram- positive cocci, repeat blood culture ordered today. Serum creatinine 1.4 . Echocardiogram completed this morning but report is pending. 02/01. Feels well. Urine output around 5.7 L yesterday, electrolytes and renal function stable. Will start him on scheduled potassium supplementation since its drifting down slowly. Will increase IV Lasix to 80 mg 3 times daily. Blood culture from 01/29 is presumptively positive for Streptococcus pneumonia, urine culture positive for gram-negative bacilli. Repeat blood culture from 01/31 team negative to date. 02/02 patient reports breathing is better, urine output around 4.2 L over past 24 hours, electrolytes stable, serum creatinine improved to 1.2 from 1.3 before. His weight is down to 102 kg from 113kg on admission, weight loss of around 24 pounds. He still has over 2+ peripheral edema. Echocardiogram is now available. EF 60-65%, right ventricle systolic function moderately reduced, both atria are moderately dilated, mild MR, moderate to severe tricuspid regurgitation. Estimated pulmonary artery pressure 57 mmHg. When compared to last echo dated 11/27/2021, right ventricle dysfunction is new and pulmonary pressure worse 02/03 Patient on 4 L nasal cannula overnight. Patient on 3 L at home typically. Patient has cough productive of yellow sputum. Shortness of breath present but improving. Patient complains of headache. Patient still quite edematous. Decreased urine output with last Lasix dose. We will add albumin to next dose. ESBL E. coli found and antibiotics changed to Merrem. Follow-up x-ray with dense consolidations by basilar. Small intermediate effusions. 02/04 Patient on BiPAP overnight. Has been on nasal cannula oxygen this morning 3L. Sitting up in chair doing well and eating breakfast. Follow-up ABG with good pH. He is hyperkalemic at 5.8. We will stop his home potassium patient is started. We will follow-up potassium later. Patient started on Lasix drip given his continued significant third spacing in the lower extremities. Diamox x1 for metabolic alkalosis. Renal function stable. 02/05 Patient on BiPAP overnight it sounds like he felt more comfortable with it on and thus it was placed. Patient sleeping with it on currently. Is awake. Discussed with him that we cannot send him on BiPAP so that we tonight we will see how he does without BiPAP. 02/06 Patient able to tolerate overnight without using BiPAP. Was on nasal cannula 3 L. Diuresis held for appear to be overdiuresis for couple days. May restart home diuretics today Pending follow-up chemistry. Still good urine output. Review of Systems: denies fever/chills/nausea/vomiting/chest or abdominal pain/diarrhea. Otherwise see above. PHYSICAL EXAM General: Alert, Awake, No acute Distress Eyes/N/T: EOMI, no scleral icterus, Head/Neck: neck supple, full ROM, CV: irreg irreg, 2/6 SM Pulm: diminished b/l but better, no wheezing, no respiratory distress Abd: soft, nontender, +BS x4 Ext: no clubbing/cyanosis, b/l LE 1+ edema, nontender Neuro: Alert,, no focal deficits, moves all extremities, , sensations intact b/l upper/lower Psychiatric: Skin: warm/dry, normal color Constitutional Vitals: Vital Signs Temp Pulse Resp BP Pulse Ox O2 Del Method O2 Flow Rate 98.6 F 97 H 16 118/78 95 Nasal Cannula 3 02/06/23 06:47 02/06/23 06:47 02/06/23 06:47 02/06/23 06:01 02/06/23 06:47 02/06/23 04:01 02/06/23 04:01 Period Temp Pulse Resp BP Sys/Murphy Pulse Ox O2 Del Method O2 Flow Rate Last 24 Hr 98.3 F-99.5 F 52-116 15-34 95-122/50-78 92-100 BiPAP-Oxymask 3-3 Intake and Output 02/05/23 02/06/23 02/06/23 19:59 03:59 11:59 Intake Total 320 50 150 Output Total 120 435 Balance 200 -385 150 Weight 101.514 kg Intake & Output: Intake & Output 02/05/23 02/06/23 02/06/23 19:59 03:59 11:59 Intake Total 320 50 150 Output Total 120 435 Balance 200 -385 150 Weight 101.514 kg Intake: IV 50 50 Lasix 250 mg In Sodium Chloride 0 0.9% 225 ml @ 10 MG/HR 10 mls/ hr IV Q24H [facility] Rx#:[id number] Merrem 1 gm In Sodium Chloride 50 50 0.9% 50 ml @ 100 mls/hr IV Q8H [facility] Rx#:[id number] Oral 120 GI Tube Flush 150 150 Output: Urine Catheter Amount 120 435 Other: Meal Lunch Percent of Meal Consumed 100% Urine Appearance Clear Urine Color Pale OBJ DATA Labs 02/02/23 05:32 02/05/23 05:35 Labs: Abnormal Lab Results 02/05/23 02/04/23 02/04/23 05:35 10:14 08:16 POC pH 7.34 L POC pCO2 77.7 H* POC pO2 65 L POC HCO3 41.5 H POC Total CO2 44.0 H* POC ABG Base Excess 16.0 H ABG Lactic Acid 0.4 L Hgb O2 Saturation 89.0 L Potassium 5.8 H Carbon Dioxide 36 H 37 H Anion Gap 5.0 L 4.0 L BUN 31 H 33 H Creatinine 1.4 H 1.3 H Uric Acid 10.2 H Lactate Dehydrogenase 121 L Albumin 2.4 L Globulin 4.0 H Albumin/Globulin Ratio 0.6 L 02/03/23 14:53 POC pH 7.29 L POC pCO2 86.1 H* POC pO2 62 L POC HCO3 41.2 H POC Total CO2 44.0 H* POC ABG Base Excess 15.0 H ABG Lactic Acid 0.3 L Hgb O2 Saturation 87.0 L Potassium Carbon Dioxide Anion Gap BUN Creatinine Uric Acid Lactate Dehydrogenase Albumin Globulin Albumin/Globulin Ratio Meds: Medications Acetaminophen (Acetaminophen 325 Mg Tablet) 650 mg PO Q6HP PRN; Protocol PRN Reason: Per Pain Protocol/Fever > 101 Last Admin: 02/02/23 15:25 Dose: 650 mg Hydrocodone Bitart/Acetaminophen (Hydrocodone/Apap 10/325mg Tablet) 1 tab PO Q8HP PRN; Protocol PRN Reason: Per Pain Protocol Last Admin: 01/30/23 21:54 Dose: 1 tab Albuterol/Ipratropium (Ipratropium/Albuterol 3 Ml Ampul.Neb) 3 ml NEB Q8H [facility] Last Admin: 02/06/23 03:29 Dose: 3 ml Bisacodyl (Bisacodyl 5 Mg Tablet) 10 mg PO DAILYP PRN PRN Reason: Constipation Budesonide (Budesonide 0.5 Mg/2 Ml Ampul.Neb) 0.5 mg NEB Q12 [facility] Last Admin: 02/05/23 19:16 Dose: 0.5 mg Diphenhydramine HCl (Diphenhydramine 50 Mg/Ml Vial) 25 mg IV Q6HP PRN PRN Reason: anxiety Last Admin: 02/05/23 20:42 Dose: 25 mg Docusate Sodium (Docusate Sodium 100 Mg Capsule) 100 mg PO BID [facility] Last Admin: 02/05/23 20:42 Dose: Not Given Enoxaparin Sodium (Enoxaparin 100 Mg/Ml Syringe) 100 mg SQ BID [facility] Last Admin: 02/05/23 20:42 Dose: 100 mg Meropenem 1 gm/ Sodium (Chloride) 50 mls @ 100 mls/hr IV Q8H [facility]; Protocol Last Admin: 02/06/23 05:48 Dose: 100 mls/hr Lactulose (Lactulose 20 Gm/30 Ml Oral.Gayatri) 10 gm PO DAILYP PRN PRN Reason: Constipation Metoprolol Tartrate (Metoprolol Tartrate 25 Mg Tablet) 25 mg PO BID [facility] Last Admin: 02/05/23 20:42 Dose: 25 mg Omeprazole (Omeprazole 20 Mg Capsule) 40 mg PO BIDAC [facility] Last Admin: 02/05/23 16:24 Dose: 40 mg Ondansetron HCl (Ondansetron 4 Mg/2 Ml Vial) 4 mg IV Q4HP PRN; Protocol PRN Reason: Nausea And Vomiting Last Admin: 02/04/23 09:18 Dose: 4 mg Ondansetron HCl (Ondansetron 4 Mg Odt Tablet) 4 mg SL Q4HP PRN; Protocol PRN Reason: Nausea And Vomiting Oxycodone HCl (Oxycodone Ir 5 Mg Tablet) 1 mg PO Q4HP PRN PRN Reason: Per Pain Protocol Senna (Sennosides 1 Tablet) 2 tab PO HSP PRN PRN Reason: Constipation Last Admin: 02/01/23 21:08 Dose: 2 tab Sodium Chloride (0.9 % Sodium Chloride 10 Ml Syringe) 10 ml IV Q8 [facility] Last Admin: 02/06/23 05:48 Dose: 10 ml Tamsulosin HCl (Tamsulosin 0.4 Mg Capsule) 0.4 mg PO QDAY [facility] Last Admin: 02/05/23 08:28 Dose: 0.4 mg A/P Narrative A/P Narrative: A: #acute on chronic diastolic CHF and Right(moderate) HF and Valvular dz (mod TR): -improved #Anasarca and Pleural effusions: slowly improving #Pulmonary hypertension: #chronic Afib w/RVR: better rate control #PNA, b/l: #Sepsis: 2/2 uti and pna #UTI(ESBL e.coli),complicated: #strep pneumoniae 1/4 bottles, repeat BC's neg: #COPD w/chronic hypoxia (3 L/min) and Exacerbation: #Acute on chronic hypoxic respiratory failure: 2/2 above -Patient with respiratory distress requiring BiPAP initially -on 3L NC, did not require bipap last night #contraction alkalosis: #Oropharyngeal Dysphagai, mild-mod: #CKD IIIb: #Anemia, chronic: #Obesity: bmi 34, Lifestyle modifications #GERD: #Generalized weakness/deconditioning: *Hyperkalemia: *BPH: cont home flomax Plan: -minimize use of Bipap if possible -hold IV diuresis for now, restart torsemide pending bmp f/u -IS/Acapella -d/c'd home potassium -Monitor UOP -Monitor weight daily. Strict input and output -Monitor renal functions and electrolytes -lopressor 25 bid -Anticoagulation with Lovenox started, change to eliquis -started carbapenem, -Continue DuoNebs, budesonide, pulmonary toileting, supplemental oxygen as ne eded and wean -diet per ST -PT consult -ppx: Eliquis / home ppi Time Spent With Patient Time: Total time spent is greater than 50% in coordination of care (as documented) at patient's floor/unit and/or counseling patient: Subsequent: Total time with patient: 35 - 49 minutes QUALITY VTE Deep Vein Thrombosis/Pulmonary Embolism Present on Admission: No
[2023-02-06] MEDS: DOCUSATE SODIUM 100 MG CAPSULE PO SCH ×2 (08:08→20:09)
[2023-02-06 09:36] LABS: Blood Urea Nitrogen 31 mg/dL (8-23); Calcium 9.4 mg/dL (8.6-10.4); Carbon Dioxide 37 mmol/L (22-30); Chloride 98 mmol/L (96-108); Glomerular Filtration Rate 48; Glucose 103 mg/dL (70-105); Uric Acid 11.1 mg/dL (2.5-8.0)
[2023-02-06] MEDS ORDERED: ALBUMIN HUMAN 12.5 GM/50 ML VIAL IV SCH (09:57)
[2023-02-06] MEDS: BUDESONIDE 0.5 MG/2 ML AMPUL.NEB NEB SCH ×2 (11:25→19:24)
[2023-02-06] MEDS: ACETAMINOPHEN 325 MG TABLET PO PRN (14:54)
[2023-02-06] MEDS: APIXABAN 5 MG TABLET PO SCH (21:35)
[2023-02-06] MEDS: HYDROcodone/APAP 10/325MG TABLET PO PRN (21:37)
[2023-02-07] MEDS: IPRATROPIUM/ALBUTEROL 3 ML AMPUL.NEB NEB SCH ×4 (03:30→19:18)
[2023-02-07] MEDS: MEROPENEM 1 GM in 0.9 % SODIUM CHLORIDE 50 ML IV SCH ×3 (05:41→21:13)
[2023-02-07] MEDS: 0.9 % SODIUM CHLORIDE 10 ML SYRINGE IV SCH ×3 (05:42→21:13)
--- NOTE | 2023-02-07 07:38 | Internal Med Progress Note ---
SUBJECTIVE Subjective Patient information: Note initiated : 02/07/23 at 7:33 am Service Date, if different from initiated Date: [] Patient: Nakul Andrew a 77 y/o M admitted on 01/30/23 for Shortness of Breath. Chief Complaint: [] Interval history: History of present illness: Patient is a 77-year-old male with a history of CHF on torsemide, COPD on 2 L nasal cannula oxygen, CKD stage III, anemia presented with shortness of breath, anasarca, worsening peripheral edema. 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 Staff at assisted living are concerned about aspiration since patient was noted to be choking on his food. Patient states that he was short of breath prior to arrival, but states that with oxygen on he feels much better. He denies any symptoms at this time. On presentation he was in distress with respiratory rate of 29, he was hypoxic and was placed on BiPAP for work of breathing. CBC showed WBC of 16.4, hemoglobin 8.5. D-dimer 2.49 elevated, VBG showed pH 7.28, PCO2 71, HCO3 33. Cr 1.5 at baseline, elevated BNP of 15,000, negative troponin, equivocal procalcitonin 0.25. UA with presence of RBC, WBC, leukocyte esterase, many bacteria concerning for UTI. 1 of 2 blood culture bottle positive for gram-positive cocci. EKG showed Afib with RVR, ventricular rate 139 bpm, nonspecific ST-T wave changes. CTA chest with large bilateral pleural effusions resulting in complete compressive atelectasis of both lower lobes with subsegmental atelectasis upper lobes. CT abdomen with cirrhosis, thickening of transitional epithelium in left upper collecting system creating 22 mm mass concerning for pyelonephritis versus transitional cell carcinoma. Also showed moderate congestive heart failure features with moderate cardiomegaly, small pericardial effusion, large bilateral pleural effusion, subcutaneous edema. Diffuse wall thickening of urinary bladder unchanged likely secondary to chronic prostatism. Please see full report. 01/31 patient is way more alert and coherent today. Bilateral lower leg swelling is improving, he reports she noted legs were getting worse for several weeks. He is diuresing well on IV Lasix, per nursing staff he had 4 L urine output past 24 hours. Leukocytosis has resolved. Initial blood culture positive for gram- positive cocci, repeat blood culture ordered today. Serum creatinine 1.4 . Echocardiogram completed this morning but report is pending. 02/01. Feels well. Urine output around 5.7 L yesterday, electrolytes and renal function stable. Will start him on scheduled potassium supplementation since its drifting down slowly. Will increase IV Lasix to 80 mg 3 times daily. Blood culture from 01/29 is presumptively positive for Streptococcus pneumonia, urine culture positive for gram-negative bacilli. Repeat blood culture from 01/31 team negative to date. 02/02 patient reports breathing is better, urine output around 4.2 L over past 24 hours, electrolytes stable, serum creatinine improved to 1.2 from 1.3 before. His weight is down to 102 kg from 113kg on admission, weight loss of around 24 pounds. He still has over 2+ peripheral edema. Echocardiogram is now available. EF 60-65%, right ventricle systolic function moderately reduced, both atria are moderately dilated, mild MR, moderate to severe tricuspid regurgitation. Estimated pulmonary artery pressure 57 mmHg. When compared to last echo dated 11/27/2021, right ventricle dysfunction is new and pulmonary pressure worse 02/03 Patient on 4 L nasal cannula overnight. Patient on 3 L at home typically. Patient has cough productive of yellow sputum. Shortness of breath present but improving. Patient complains of headache. Patient still quite edematous. Decreased urine output with last Lasix dose. We will add albumin to next dose. ESBL E. coli found and antibiotics changed to Merrem. Follow-up x-ray with dense consolidations by basilar. Small intermediate effusions. 02/04 Patient on BiPAP overnight. Has been on nasal cannula oxygen this morning 3L. Sitting up in chair doing well and eating breakfast. Follow-up ABG with good pH. He is hyperkalemic at 5.8. We will stop his home potassium patient is started. We will follow-up potassium later. Patient started on Lasix drip given his continued significant third spacing in the lower extremities. Diamox x1 for metabolic alkalosis. Renal function stable. 02/05 Patient on BiPAP overnight it sounds like he felt more comfortable with it on and thus it was placed. Patient sleeping with it on currently. Is awake. Discussed with him that we cannot send him on BiPAP so that we tonight we will see how he does without BiPAP. 02/06 Patient able to tolerate overnight without using BiPAP. Was on nasal cannula 3 L. Diuresis held for appear to be overdiuresis for couple days. May restart home diuretics today Pending follow-up chemistry. Still good urine output. 02/07 Patient has been stable on his 3 L doing well until last night when he had quickly gradually increasing respiratory distress and hypoxia. Chest x-ray with diffuse infiltrates worsened. Patient on 11 L high flow nasal cannula. Review of Systems: denies fever/chills/nausea/vomiting/chest or abdominal pain/diarrhea. Otherwise see above. PHYSICAL EXAM General: Alert, Awake, No acute Distress Eyes/N/T: EOMI, no scleral icterus, Head/Neck: neck supple, full ROM, CV: irreg irreg, 2/6 SM Pulm: severly diminished b/l , no wheezing, nonlabored Abd: soft, nontender, +BS x4 Ext: no clubbing/cyanosis, b/l LE 1+ edema, nontender Neuro: Alert,, no focal deficits, moves all extremities, , sensations intact b/l upper/lower Psychiatric: Skin: warm/dry, normal color Constitutional Vitals: Vital Signs Temp Pulse Resp BP Pulse Ox O2 Del Method O2 Flow Rate 98.7 F 86 24 H 101/69 94 High Flow Nasal Cannula 11 02/07/23 06:01 02/07/23 06:01 02/07/23 06:01 02/07/23 06:01 02/07/23 06:25 02/07/23 06:25 02/07/23 06:25 Period Temp Pulse Resp BP Sys/Murphy Pulse Ox O2 Del Method O2 Flow Rate Last 24 Hr 98.4 F-99.5 F 55-146 18-36 94-141/54-84 83-99 High Flow Nasal Cannula-Oxymask 3-15 Intake and Output 02/06/23 02/07/23 02/07/23 19:59 03:59 11:59 Intake Total 440 250 50 Output Total 350 345 125 Balance 90 -95 -75 Weight 102.648 kg Intake & Output: Intake & Output 02/06/23 02/07/23 02/07/23 19:59 03:59 11:59 Intake Total 440 250 50 Output Total 350 345 125 Balance 90 -95 -75 Weight 102.648 kg Intake: IV 50 50 50 Merrem 1 gm In Sodium Chloride 50 50 50 0.9% 50 ml @ 100 mls/hr IV Q8H [facility] Rx#:[id number] Oral 240 200 GI Tube Flush 150 Output: Urine Catheter Amount 350 345 125 Other: Meal Dinner Percent of Meal Consumed 75% Feeding Ability Assist with Tray Set Up Urine Appearance Clear Clear Urine Color Dark Yellow Light Mary Light Mary OBJ DATA Labs 02/02/23 05:32 02/07/23 04:46 Labs: Abnormal Lab Results 02/07/23 02/06/23 02/05/23 04:46 08:41 05:35 POC pH POC pCO2 POC pO2 POC HCO3 POC Total CO2 POC ABG Base Excess ABG Lactic Acid POC VBG pCO2 at Temp 73.9 H* POC VBG pO2 50 H POC VBG HCO3 37.7 H POC VBG Total CO2 40.0 H POC Venous O2 Sat 80.0 H POC VBG Base Excess 12.0 H* Hgb O2 Saturation Potassium Carbon Dioxide 37 H 36 H Anion Gap 5.0 L 5.0 L BUN 31 H 31 H Creatinine 1.4 H 1.4 H Uric Acid 11.1 H 10.2 H Lactate Dehydrogenase 121 L Albumin 2.4 L Globulin 4.0 H Albumin/Globulin Ratio 0.6 L 02/04/23 02/04/23 10:14 08:16 POC pH 7.34 L POC pCO2 77.7 H* POC pO2 65 L POC HCO3 41.5 H POC Total CO2 44.0 H* POC ABG Base Excess 16.0 H ABG Lactic Acid 0.4 L POC VBG pCO2 at Temp POC VBG pO2 POC VBG HCO3 POC VBG Total CO2 POC Venous O2 Sat POC VBG Base Excess Hgb O2 Saturation 89.0 L Potassium 5.8 H Carbon Dioxide 37 H Anion Gap 4.0 L BUN 33 H Creatinine 1.3 H Uric Acid Lactate Dehydrogenase Albumin Globulin Albumin/Globulin Ratio Meds: Medications Acetaminophen (Acetaminophen 325 Mg Tablet) 650 mg PO Q6HP PRN; Protocol PRN Reason: Per Pain Protocol/Fever > 101 Last Admin: 02/06/23 14:54 Dose: 650 mg Hydrocodone Bitart/Acetaminophen (Hydrocodone/Apap 10/325mg Tablet) 1 tab PO Q8HP PRN; Protocol PRN Reason: Per Pain Protocol Last Admin: 02/06/23 21:37 Dose: 1 tab Acetazolamide Sodium (Acetazolamide Sod 500 Mg Vial) 500 mg IV DAILY [facility] Albuterol/Ipratropium (Ipratropium/Albuterol 3 Ml Ampul.Neb) 3 ml NEB Q8H [facility] Last Admin: 02/07/23 03:50 Dose: 3 ml Apixaban (Apixaban 5 Mg Tablet) 5 mg PO BID [facility] Last Admin: 02/06/23 21:35 Dose: 5 mg Bisacodyl (Bisacodyl 5 Mg Tablet) 10 mg PO DAILYP PRN PRN Reason: Constipation Budesonide (Budesonide 0.5 Mg/2 Ml Ampul.Neb) 0.5 mg NEB Q12 [facility] Last Admin: 02/06/23 19:24 Dose: 0.5 mg Diphenhydramine HCl (Diphenhydramine 50 Mg/Ml Vial) 25 mg IV Q6HP PRN PRN Reason: anxiety Last Admin: 02/06/23 23:36 Dose: 25 mg Docusate Sodium (Docusate Sodium 100 Mg Capsule) 100 mg PO BID [facility] Last Admin: 02/06/23 20:09 Dose: Not Given Meropenem 1 gm/ Sodium (Chloride) 50 mls @ 100 mls/hr IV Q8H [facility]; Protocol Last Infusion: 02/07/23 06:56 Dose: Infused Lactulose (Lactulose 20 Gm/30 Ml Oral.Gayatri) 10 gm PO DAILYP PRN PRN Reason: Constipation Metoprolol Tartrate (Metoprolol Tartrate 25 Mg Tablet) 25 mg PO BID [facility] Last Admin: 02/06/23 21:35 Dose: 25 mg [facility] ([facility] Last Admin: 02/06/23 17:03 Dose: 40 mg Ondansetron HCl (Ondansetron 4 Mg/2 Ml Vial) 4 mg IV Q4HP PRN; Protocol PRN Reason: Nausea And Vomiting Last Admin: 02/04/23 09:18 Dose: 4 mg Ondansetron HCl (Ondansetron 4 Mg Odt Tablet) 4 mg SL Q4HP PRN; Protocol PRN Reason: Nausea And Vomiting Oxycodone HCl (Oxycodone Ir 5 Mg Tablet) 1 mg PO Q4HP PRN PRN Reason: Per Pain Protocol Senna (Sennosides 1 Tablet) 2 tab PO HSP PRN PRN Reason: Constipation Last Admin: 02/01/23 21:08 Dose: 2 tab Sodium Chloride (0.9 % Sodium Chloride 10 Ml Syringe) 10 ml IV Q8 [facility] Last Admin: 02/07/23 05:42 Dose: 10 ml Tamsulosin HCl (Tamsulosin 0.4 Mg Capsule) 0.4 mg PO QDAY [facility] Last Admin: 02/06/23 08:03 Dose: 0.4 mg A/P Narrative A/P Narrative: A: #Acute on chronic hypoxic respiratory failure: 2/2 pna & chf initially, but likley now worsened by effusions -Patient with respiratory distress requiring BiPAP initially -on 3L NC, but early this morning sudden increase in need, now on 11 HFNC -worsening likely 2/2 b/l effusions #acute on chronic diastolic CHF and Right(moderate) HF and Valvular dz (mod TR): -improved #Anasarca and Pleural effusions: slowly improving #Pulmonary hypertension: #chronic Afib w/RVR: better rate control #PNA, b/l: #Sepsis: 2/2 uti and pna #UTI(ESBL e.coli),complicated: #strep pneumoniae 1/4 bottles, repeat BC's neg: #COPD w/chronic hypoxia (3 L/min) and Exacerbation: #contraction alkalosis: #Oropharyngeal Dysphagai, mild-mod: #CKD IIIb: #Anemia, chronic: #Obesity: bmi 34, Lifestyle modifications #GERD: #Generalized weakness/deconditioning: *Hyperkalemia: *BPH: cont home flomax Plan: -thoracentesis -wean back down Oxygen -cxr -hold IV diuresis for now, restart torsemide pending bmp f/u -IS/Acapella -d/c'd home potassium -Monitor UOP -Monitor weight daily. Strict input and output -Monitor renal functions and electrolytes -lopressor 25 bid -Anticoagulation with Lovenox started, change to eliquis -started carbapenem, -Continue DuoNebs, budesonide, pulmonary toileting, supplemental oxygen as needed and wean -diet per ST -PT consult -ppx: Eliquis / home ppi Time Spent With Patient Time: Total time spent is greater than 50% in coordination of care (as documented) at patient's floor/unit and/or counseling patient: Critical Care Time: Yes Total Critical Care Time: 55 QUALITY VTE Deep Vein Thrombosis/Pulmonary Embolism Present on Admission: No
[2023-02-07] MEDS ORDERED: ALBUMIN HUMAN 12.5 GM/50 ML VIAL IV ONE (08:08)
[2023-02-07 08:16] LABS: Blood Urea Nitrogen 32 mg/dL (8-23); Calcium 9.4 mg/dL (8.6-10.4); Carbon Dioxide 35 mmol/L (22-30); Chloride 98 mmol/L (96-108); Glomerular Filtration Rate 44; Glucose 114 mg/dL (70-105)
[2023-02-07] MEDS: TAMSULOSIN 0.4 MG CAPSULE PO SCH (08:26)
[2023-02-07] MEDS: DOCUSATE SODIUM 100 MG CAPSULE PO SCH ×2 (08:26→21:13)
[2023-02-07] MEDS: METOPROLOL TARTRATE 25 MG TABLET PO SCH ×2 (08:26→21:13)
[2023-02-07] MEDS: APIXABAN 5 MG TABLET PO SCH ×2 (08:26→21:13)
[2023-02-07] MEDS: OMEPRAZOLE 20 MG CAPSULE PO SCH ×2 (08:26→16:20)
--- NOTE | 2023-02-07 08:36 | XRay Report ---
CLINICAL INFORMATION: hypoxia COMPARISON: 02/03/2023 FINDINGS: Moderate cardiomegaly is unchanged. There is mild mediastinal widening. Diffuse infiltrates have worsened since exam four days prior now with only right apical sparing . Large bilateral pleural effusions have also increased. IMPRESSION: Diffuse bilateral infiltrates worsening over the past four days now with only right apical sparing. Large bilateral pleural effusions have also increased. Consider thoracentesis Interpreted and Authenticated by: Georgi Kumari 02/07/23
[2023-02-07] MEDS ORDERED: acetaZOLAMIDE SOD 500 MG VIAL IV SCH (09:00)
[2023-02-07] MEDS: BUDESONIDE 0.5 MG/2 ML AMPUL.NEB NEB SCH ×2 (09:23→19:18)
--- NOTE | 2023-02-07 11:51 | Ultrasound Report ---
CLINICAL INFORMATION: Pre-Thoracentesis fluid assessment COMPARISON: None. FINDINGS: Large bilateral simple pleural effusions noted left greater than right. IMPRESSION: Large bilateral pleural effusions-left greater than right Interpreted and Authenticated by: Georgi Kumari 02/07/23
[2023-02-07] MEDS ORDERED: LORazepam 2 MG/ML VIAL IV ONE (13:48)
[2023-02-08] MEDS: IPRATROPIUM/ALBUTEROL 3 ML AMPUL.NEB NEB SCH ×3 (02:54→19:45)
[2023-02-08] MEDS: MEROPENEM 1 GM in 0.9 % SODIUM CHLORIDE 50 ML IV SCH ×3 (05:48→22:04)
[2023-02-08] MEDS: 0.9 % SODIUM CHLORIDE 10 ML SYRINGE IV SCH ×3 (05:55→23:54)
[2023-02-08 06:49] LABS: Basophils # (Auto) 0.04 K/mcL (0.00-0.30); Basophils % (Auto) 0.7 % (0.0-2.0); Eosinophils # (Auto) 0.15 K/mcL (0.00-0.70); Eosinophils % (Auto) 2.7 % (0.0-7.0); Hematocrit 30.6 % (40.1-51.0); Hemoglobin 8.9 g/dL (13.7-17.5); Lymphocytes # (Auto) 0.38 K/mcL (1.50-4.80); Lymphocytes % (Auto) 6.8 % (15.5-49.0); Mean Corpuscular HGB Conc 29.1 g/dL (31.0-36.0); Mean Platelet Volume 11.9 fL (8.8-12.5); Monocytes # (Auto) 0.57 K/mcL (0.10-0.90); Monocytes % (Auto) 10.2 % (1.0-12.0); Neutrophils % (Auto) 78.5 % (38.0-78.0); Platelet Count 200 K/mcL (140-440); Red Cell Distribution Width 21.5 % (11.5-14.5); WBC 5.6 K/mcL (4.5-11.0)
[2023-02-08] MEDS: DOCUSATE SODIUM 100 MG CAPSULE PO SCH ×2 (07:20→20:43)
[2023-02-08] MEDS: METOPROLOL TARTRATE 25 MG TABLET PO SCH ×2 (07:20→20:43)
[2023-02-08] MEDS: TAMSULOSIN 0.4 MG CAPSULE PO SCH (07:20)
[2023-02-08] MEDS: OMEPRAZOLE 20 MG CAPSULE PO SCH ×2 (07:20→15:31)
[2023-02-08] MEDS: APIXABAN 5 MG TABLET PO SCH ×2 (07:20→20:43)
[2023-02-08 07:49] LABS: ALT/SGPT < 5 U/L (<40); AST/SGOT 8 U/L (<40); Albumin 2.4 gm/dL (3.2-5.2); Albumin/Globulin Ratio 0.5 (1.0-2.3); Alkaline Phosphatase 73 U/L (39-117); Bilirubin,Total 0.4 mg/dL (0.1-1.0); Blood Urea Nitrogen 33 mg/dL (8-23); Calcium 9.2 mg/dL (8.6-10.4); Carbon Dioxide 37 mmol/L (22-30); Chloride 99 mmol/L (96-108); Globulin 4.5 gm/dL (2.2-3.7); Glomerular Filtration Rate 48; Glucose 78 mg/dL (70-105)
--- NOTE | 2023-02-08 08:28 | Internal Med Progress Note ---
SUBJECTIVE Subjective Patient information: Note initiated : 02/08/23 at 8:23 am Service Date, if different from initiated Date: [] Patient: Nakul Andrew a 77 y/o M admitted on 01/30/23 for Shortness of Breath. Chief Complaint: [] Interval history: Patient is a 77-year-old male with a history of CHF on torsemide, COPD on 2 L nasal cannula oxygen, CKD stage III, anemia presented with shortness of breath, anasarca, worsening peripheral edema. 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 Staff at assisted living are concerned about aspiration since patient was noted to be choking on his food. Patient states that he was short of breath prior to arrival, but states that with oxygen on he feels much better. He denies any symptoms at this time. On presentation he was in distress with respiratory rate of 29, he was hypoxic and was placed on BiPAP for work of breathing. CBC showed WBC of 16.4, hemoglobin 8.5. D-dimer 2.49 elevated, VBG showed pH 7.28, PCO2 71, HCO3 33. Cr 1.5 at baseline, elevated BNP of 15,000, negative troponin, equivocal procalcitonin 0.25. UA with presence of RBC, WBC, leukocyte esterase, many bacteria concerning for UTI. 1 of 2 blood culture bottle positive for gram-positive cocci. EKG showed Afib with RVR, ventricular rate 139 bpm, nonspecific ST-T wave changes. CTA chest with large bilateral pleural effusions resulting in complete compressive atelectasis of both lower lobes with subsegmental atelectasis upper lobes. CT abdomen with cirrhosis, thickening of transitional epithelium in left upper collecting system creating 22 mm mass concerning for pyelonephritis versus transitional cell carcinoma. Also showed moderate congestive heart failure feat ures with moderate cardiomegaly, small pericardial effusion, large bilateral pleural effusion, subcutaneous edema. Diffuse wall thickening of urinary bladder unchanged likely secondary to chronic prostatism. Please see full report. 01/[address] more alert and coherent today. Bilateral lower leg swelling is improving, he reports she noted legs were getting worse for several weeks. He is diuresing well on IV Lasix, per nursing staff he had 4 L urine output past 24 hours. Leukocytosis has resolved. Initial blood culture positive for gram- positive cocci, repeat blood culture ordered today. Serum creatinine 1.4 . Echocardiogram completed this morning but report is pending. 02/01. Feels well. Urine output around 5.7 L yesterday, electrolytes and renal function stable. Will start him on scheduled potassium supplementation since its drifting down slowly. Will increase IV Lasix to 80 mg 3 times daily. Blood culture from 01/29 is presumptively positive for Streptococcus pneumonia, urine culture positive for gram-negative bacilli. Repeat blood culture from 01/31 team negative to date. 02/02 patient reports breathing is better, urine output around 4.2 L over past 24 hours, electrolytes stable, serum creatinine improved to 1.2 from 1.3 before. His weight is down to 102 kg from 113kg on admission, weight loss of around 24 pounds. He still has over 2+ peripheral edema. Echocardiogram is now available. EF 60-65%, right ventricle systolic function moderately reduced, b oth atria are moderately dilated, mild MR, moderate to severe tricuspid regurgitation. Estimated pulmonary artery pressure 57 mmHg. When compared to last echo dated 11/27/2021, right ventricle dysfunction is new and pulmonary pressure worse 02/03 Patient on 4 L nasal cannula overnight. Patient on 3 L at home typically. Patient has cough productive of yellow sputum. Shortness of breath present but improving. Patient complains of headache. Patient still quite edematous. Decreased urine output with last Lasix dose. We will add albumin to next dose. ESBL E. coli found and antibiotics changed to Merrem. Follow-up x-ray with dense consolidations by basilar. Small intermediate effusions. 02/04 Patient on BiPAP overnight. Has been on nasal cannula oxygen this morning 3L. Sitting up in chair doing well and eating breakfast. Follow-up ABG with good pH. He is hyperkalemic at 5.8. We will stop his home potassium patient is started. We will follow-up potassium later. Patient start ed on Lasix drip given his continued significant third spacing in the lower extremities. Diamox x1 for metabolic alkalosis. Renal function stable. 02/05 Patient on BiPAP overnight it sounds like he felt more comfortable with it on and thus it was placed. Patient sleeping with it on currently. Is awake. Discussed with him that we cannot send him on BiPAP so that we tonight we will see how he does without BiPAP. 02/06 Patient able to tolerate overnight without using BiPAP. Was on nasal cannula 3 L. Diuresis held for appear to be overdiuresis for couple days. May restart home diuretics today Pending follow-up chemistry. Still good urine output. 02/07 Patient has been stable on his 3 L doing well until last night when he had quickly gradually increasing respiratory distress and hypoxia. Chest x-ray with diffuse infiltrates worsened. Patient on 11 L high flow nasal cannula. 02/08: Patient agrees to proceed with thoracentesis. He is on BiPAP 14/7 FiO2 35%. Afebrile overnight. WBC 5.6 this morning. Repeat blood cultures no growth to date. He denies shortness of breath, chest pain, anxiety, cough, wheezing, fever, chills, or sweating at the moment. Proceed with thoracentesis today. Ativan 1mg IV once before the procedure. Continue BiPAP for now, will try to wean down/off afterward. Continue bronchodilators for COPD. Continue Meropenem for E coli UTI and pneumonia. Lasix 20mg IV BID and Lisinopril for CHF. Overall condition guarded. Stays in PCU. Physical therapy and occupational therapy evaluation and treatment. Constitutional Vitals: Vital Signs Temp Pulse Resp BP Pulse Ox O2 Del Method O2 Flow Rate 36.6 C 87 17 114/63 97 BiPAP 11 02/08/23 08:01 02/08/23 08:01 02/08/23 08:01 02/08/23 08:01 02/08/23 08:01 02/08/23 08:01 02/07/23 08:17 Period Temp Pulse Resp BP Sys/Murphy Pulse Ox O2 Del Method O2 Flow Rate Last 24 Hr 36.4 C-37.1 C 18-94 5-29 93-117/51-73 75-100 BiPAP-Oxymask Intake and Output 02/07/23 02/08/23 02/08/23 19:59 03:59 11:59 Intake Total 50 50 50 Output Total 275 320 200 Balance -225 -270 -150 Weight 102.648 kg 101.741 kg Intake & Output: Intake & Output 02/07/23 02/08/23 02/08/23 19:59 03:59 11:59 Intake Total 50 50 50 Output Total 275 320 200 Balance -225 -270 -150 Weight 102.648 kg 101.741 kg Intake: IV 50 50 50 Merrem 1 gm In Sodium Chloride 50 50 50 0.9% 50 ml @ 100 mls/hr IV Q8H [facility] Rx#:[id number] Output: Urine Catheter Amount 275 320 200 Other: Urine Appearance Clear Clear Urine Color Dark Yellow Dark Yellow Stool Size Small Stool Color Brown Stool Consistency Loose # of times incontinent of 1 Bowels General appearance: mild distress and thin Head Head exam: Present atraumatic and normal inspection Eye Eye exam: Present normal appearance ENT ENT exam: Present mucous membranes moist, normal exam and normal external ear exam Additional comments: BiPAP in place Neck Neck exam: Present normal inspection Respiratory Respiratory exam: Present decreased breath sounds and rhonchi Cardiovascular Cardiovascular exam: Present irregular rhythm GI/Abdominal GI/Abdominal exam: Present normal bowel sounds Back Exam Back exam: Present normal inspection Neurological Exam Neurological exam: Present alert and oriented X3 Skin Skin exam: Present intact and warm OBJ DATA Labs 02/08/23 05:53 02/08/23 05:53 Labs: Abnormal Lab Results 02/08/23 02/08/23 02/08/23 05:53 05:53 04:28 RBC 3.40 L Hgb 8.9 L Hct 30.6 L MCHC 29.1 L RDW 21.5 H Immature Gran % (Auto) 1.1 H Neut % (Auto) 78.5 H Lymph % (Auto) 6.8 L Lymph # (Auto) 0.38 L Immature Gran # 0.06 H POC VBG pH 7.52 H POC VBG pCO2 at Temp POC VBG pO2 87 H POC VBG HCO3 35.5 H POC VBG Total CO2 37.0 H POC Venous O2 Sat 97.0 H POC VBG Base Excess 13.0 H* Carbon Dioxide 37 H Anion Gap 5.0 L BUN 33 H Creatinine 1.4 H Glucose Uric Acid Albumin 2.4 L Globulin 4.5 H Albumin/Globulin Ratio 0.5 L 02/07/23 02/07/23 02/06/23 04:46 04:46 08:41 RBC Hgb Hct MCHC RDW Immature Gran % (Auto) Neut % (Auto) Lymph % (Auto) Lymph # (Auto) Immature Gran # POC VBG pH POC VBG pCO2 at Temp 73.9 H* POC VBG pO2 50 H POC VBG HCO3 37.7 H POC VBG Total CO2 40.0 H POC Venous O2 Sat 80.0 H POC VBG Base Excess 12.0 H* Carbon Dioxide 35 H 37 H Anion Gap 7.0 L 5.0 L BUN 32 H 31 H Creatinine 1.5 H 1.4 H Glucose 114 H Uric Acid 11.1 H Albumin Globulin Albumin/Globulin Ratio Meds: Medications Acetaminophen (Acetaminophen 325 Mg Tablet) 650 mg PO Q6HP PRN; Protocol PRN Reason: Per Pain Protocol/Fever > 101 Last Admin: 02/06/23 14:54 Dose: 650 mg Hydrocodone Bitart/Acetaminophen (Hydrocodone/Apap 10/325mg Tablet) 1 tab PO Q8HP PRN; Protocol PRN Reason: Per Pain Protocol Last Admin: 02/06/23 21:37 Dose: 1 tab Albuterol/Ipratropium (Ipratropium/Albuterol 3 Ml Ampul.Neb) 3 ml NEB Q8H [facility] Last Admin: 02/08/23 02:54 Dose: 3 ml Apixaban (Apixaban 5 Mg Tablet) 5 mg PO BID [facility] Last Admin: 02/08/23 07:20 Dose: Not Given Bisacodyl (Bisacodyl 5 Mg Tablet) 10 mg PO DAILYP PRN PRN Reason: Constipation Budesonide (Budesonide 0.5 Mg/2 Ml Ampul.Neb) 0.5 mg NEB Q12 [facility] Last Admin: 02/07/23 19:18 Dose: 0.5 mg Diphenhydramine HCl (Diphenhydramine 50 Mg/Ml Vial) 25 mg IV Q6HP PRN PRN Reason: anxiety Last Admin: 02/06/23 23:36 Dose: 25 mg Docusate Sodium (Docusate Sodium 100 Mg Capsule) 100 mg PO BID [facility] Last Admin: 02/08/23 07:20 Dose: Not Given Meropenem 1 gm/ Sodium (Chloride) 50 mls @ 100 mls/hr IV Q8H [facility]; Protocol Last Infusion: 02/08/23 06:39 Dose: Infused Lactulose (Lactulose 20 Gm/30 Ml Oral.Gayatri) 10 gm PO DAILYP PRN PRN Reason: Constipation Metoprolol Tartrate (Metoprolol Tartrate 25 Mg Tablet) 25 mg PO BID [facility] Last Admin: 02/08/23 07:20 Dose: Not Given Omeprazole (Omeprazole 20 Mg Capsule) 40 mg PO BIDAC [facility] Last Admin: 02/08/23 07:20 Dose: Not Given Ondansetron HCl (Ondansetron 4 Mg/2 Ml Vial) 4 mg IV Q4HP PRN; Protocol PRN Reason: Nausea And Vomiting Last Admin: 02/04/23 09:18 Dose: 4 mg Ondansetron HCl (Ondansetron 4 Mg Odt Tablet) 4 mg SL Q4HP PRN; Protocol PRN Reason: Nausea And Vomiting Oxycodone HCl (Oxycodone Ir 5 Mg Tablet) 1 mg PO Q4HP PRN PRN Reason: Per Pain Protocol Senna (Sennosides 1 Tablet) 2 tab PO HSP PRN PRN Reason: Constipation Last Admin: 02/01/23 21:08 Dose: 2 tab Sodium Chloride (0.9 % Sodium Chloride 10 Ml Syringe) 10 ml IV Q8 [facility] Last Admin: 02/08/23 05:55 Dose: 10 ml Tamsulosin HCl (Tamsulosin 0.4 Mg Capsule) 0.4 mg PO QDAY [facility] Last Admin: 02/08/23 07:20 Dose: Not Given A/P Assessment and plan (1) Bilateral pneumonia: Status: Acute (2) Hypochromic microcytic anemia: Status: Acute (3) BPH (benign prostatic hyperplasia): Status: Acute (4) CKD (chronic kidney disease), stage III: Status: Acute (5) GERD (gastroesophageal reflux disease): Status: Acute (6) Atrial fibrillation with RVR: Status: Acute (7) COPD (chronic obstructive pulmonary disease): Status: Acute (8) Bacteremia due to Streptococcus pneumoniae: Status: Acute (9) UTI due to extended-spectrum beta lactamase (ESBL) producing Escherichia coli: Status: Acute (10) Acute exacerbation of CHF (congestive heart failure): Status: Acute (11) Acute hypercapnic respiratory failure: Status: Acute Narrative A/P Narrative: Assessment and Plans: 1. Bilateral pleural effusion associated with diastolic CHF: Stays in PCU Diagnostic and therapeutic thoracentesis today, Ativan before and CXR after the procedure BiPAP, continue to wean down/off as tolerated Lasix 20mg IV BID Lisinopril Metoprolol tartrate 2000cc/day fluid restriction 2. COPD: Pulmicort DUoNEB 3. Bilateral pneumonia: Meropenem cbc w/ auto diff in the morning to trend WBC Blood culture BiPAP, continue to wean down/off as tolerated 4. ESBL E coli UTI: Blood culture Urine culture cbc w/ auto diff in the morning to trend WBC Meropenem 5. Microcytic hypochromic anemia: cbc w/ auto diff in the morning to trend H/H 6. GERD: Prilosec 7. Chronic kidney disease III: Avoid nephrotoxic agents Saline lock with diuretics Lasix 2000cc/day fluid restriction CMP in the morning to trend kidney functions 8. Atrial fibrillation RVR: Metoprolol tartrate for rate control Eliquis as anticoagulation 9. Strep pneumoniae bacteremia: 09/22 bottle growth from initial culture, no growth in subsequent cultures DDx: Skin contamination Monitor repeat blood culture results cbc w/ auto diff in the morning to trend WBC Meropenem GI ppx: Prilosec DVT ppx: Eliquis Code status: Extremely guarded Disposition: inpatient PCU Time Spent With Patient Time: Total time spent is greater than 50% in coordination of care (as documented) at patient's floor/unit and/or counseling patient: Subsequent: Total time with patient: 35 - 49 minutes QUALITY VTE Deep Vein Thrombosis/Pulmonary Embolism Present on Admission: No
[2023-02-08] MEDS ORDERED: LISINOPRIL 2.5 MG TABLET PO SCH (09:00)
[2023-02-08] MEDS: BUDESONIDE 0.5 MG/2 ML AMPUL.NEB NEB SCH ×2 (09:21→19:45)
[2023-02-08 10:05] LABS: INR 1.2 (0.9-1.1); Partial Thromboplastin Time 38.3 sec (20.0-37.0); Prothrombin Time 15.4 sec (11.9-14.5)
[2023-02-08] MEDS ORDERED: LORazepam 2 MG/ML VIAL IV ONE (13:15)
--- NOTE | 2023-02-08 14:10 | Ultrasound Report ---
Ultrasound-guided thoracentesis CLINICAL INFORMATION: Large left pleural effusion TECHNIQUE: Procedure and risks including possibility of bleeding, infection, and pneumothorax were explained to the patient. They understood and wished to proceed. With the patient in upright position, the fluid was first sonographically localized over the posterior left 10th intercostal space at posterior axillary line. The skin overlying this region was marked, prepped and locally anesthetized with 1% lidocaine using a 25-gauge needle to the level the parietal pleura. An 18-gauge Yueh needle was then advanced under sonographic guidance into the pleural fluid and 1.5 L of simple appearing transudative fluid was aspirated. Post procedure scanning shows only minimal residual fluid. Patient tolerated procedure well without apparent complication. Follow-up chest x-ray to be obtained IMPRESSION: Successful thoracentesis yielding 1.5 L of transudative appearing simple pleural fluid. No apparent complication : Interpreted and Authenticated by: Georgi Kumari 02/08/23
[2023-02-08 15:32] LABS: Amylase,Pleural Fluid 28 U/L; Glucose,Pleural Fluid 88 mg/dL; LDH,Pleural Fluid 78 U/L (<122); Total Protein,Body Fluid 2.2 gm/dL
--- NOTE | 2023-02-08 15:48 | XRay Report ---
CLINICAL INFORMATION: Post left Thoracentesis COMPARISON: 02/07/2023 FINDINGS: Marked cardiomegaly is unchanged. Mediastinum and pulmonary vessels are normal. Following left thoracentesis, there is only a small residual left pleural effusion. No pneumothorax or other complication. Moderate right pleural effusion is unchanged. Moderate bibasilar airspace disease has improved. It is likely represents atelectasis IMPRESSION: Following left thoracentesis, only small residual left pleural effusion. No pneumothorax or other complication. Moderate right pleural effusion unchanged Moderate bibasilar airspace disease is likely atelectasis. It has improved Interpreted and Authenticated by: Georgi Kumari 02/08/23
[2023-02-08 15:58] LABS: Appearance,Pleural Fluid Clear; Color,Pleural Fluid Yellow; Eosinophils,Pleural Fluid 1 %; Lymphocytes,Pleural Fluid 35 %; Mesothelial,Pleural Fluid 1 %; Monocytes,Pleural Fluid 23 %; Neutrophils,Pleural Fluid 40 %; Nucleated Cells,Pleural Fld 303 /cumm; RBC,Pleural Fluid <50,000 /cumm
[2023-02-08] MEDS ORDERED: FUROSEMIDE 20 MG/2 ML VIAL IV SCH (16:00)
[2023-02-08] MEDS ORDERED: 0.9 % SODIUM CHLORIDE 500 ML IV ONE (22:13)
[2023-02-09] MEDS: IPRATROPIUM/ALBUTEROL 3 ML AMPUL.NEB NEB SCH ×4 (04:09→19:30)
[2023-02-09] MEDS: MEROPENEM 1 GM in 0.9 % SODIUM CHLORIDE 50 ML IV SCH ×3 (05:27→21:20)
[2023-02-09] MEDS: 0.9 % SODIUM CHLORIDE 10 ML SYRINGE IV SCH ×3 (05:27→21:20)
[2023-02-09 06:21] LABS: Basophils # (Auto) 0.03 K/mcL (0.00-0.30); Basophils % (Auto) 0.6 % (0.0-2.0); Eosinophils # (Auto) 0.14 K/mcL (0.00-0.70); Eosinophils % (Auto) 2.6 % (0.0-7.0); Hemoglobin 8.6 g/dL (13.7-17.5); Lymphocytes # (Auto) 0.41 K/mcL (1.50-4.80); Lymphocytes % (Auto) 7.6 % (15.5-49.0); Mean Cell Volume 88.1 fL (80.0-100.0); Mean Corpuscular HGB Conc 29.7 g/dL (31.0-36.0); Mean Platelet Volume 11.7 fL (8.8-12.5); Monocytes # (Auto) 0.59 K/mcL (0.10-0.90); Monocytes % (Auto) 10.9 % (1.0-12.0); Neutrophils % (Auto) 77.2 % (38.0-78.0); Platelet Count 217 K/mcL (140-440); RBC 3.29 M/mcL (4.63-6.08); Red Cell Distribution Width 21.2 % (11.5-14.5); WBC 5.4 K/mcL (4.5-11.0)
[2023-02-09 06:51] LABS: ALT/SGPT 5 U/L (<40); AST/SGOT 14 U/L (<40); Albumin 2.4 gm/dL (3.2-5.2); Albumin/Globulin Ratio 0.6 (1.0-2.3); Alkaline Phosphatase 90 U/L (39-117); Bilirubin,Total 0.4 mg/dL (0.1-1.0); Blood Urea Nitrogen 32 mg/dL (8-23); Calcium 9.2 mg/dL (8.6-10.4); Carbon Dioxide 34 mmol/L (22-30); Chloride 100 mmol/L (96-108); Globulin 4.1 gm/dL (2.2-3.7); Glomerular Filtration Rate 58; Glucose 89 mg/dL (70-105)
[2023-02-09] MEDS: OMEPRAZOLE 20 MG CAPSULE PO SCH ×2 (07:43→16:52)
[2023-02-09] MEDS: DOCUSATE SODIUM 100 MG CAPSULE PO SCH ×2 (07:44→20:42)
[2023-02-09] MEDS: TAMSULOSIN 0.4 MG CAPSULE PO SCH (08:55)
[2023-02-09] MEDS: METOPROLOL TARTRATE 25 MG TABLET PO SCH ×2 (08:55→20:45)
[2023-02-09] MEDS: APIXABAN 5 MG TABLET PO SCH ×2 (08:56→20:45)
--- NOTE | 2023-02-09 08:56 | Internal Med Progress Note ---
SUBJECTIVE Subjective Patient information: Note initiated : 02/09/23 at 8:53 am Service Date, if different from initiated Date: [] Patient: Nakul Andrew a 77 y/o M admitted on 01/30/23 for Shortness of Breath. Chief Complaint: [] Interval history: Patient is a 77-year-old male with a history of CHF on torsemide, COPD on 2 L nasal cannula oxygen, CKD stage III, anemia presented with shortness of breath, anasarca, worsening peripheral edema. 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 Staff at assisted living are concerned about aspiration since patient was noted to be choking on his food. Patient states that he was short of breath prior to arrival, but states that with oxygen on he feels much better. He denies any symptoms at this time. On presentation he was in distress with respiratory rate of 29, he was hypoxic and was placed on BiPAP for work of breathing. CBC showed WBC of 16.4, hemoglobin 8.5. D-dimer 2.49 elevated, VBG showed pH 7.28, PCO2 71, HCO3 33. Cr 1.5 at baseline, elevated BNP of 15,000, negative troponin, equivocal procalcitonin 0.25. UA with presence of RBC, WBC, leukocyte esterase, many bacteria concerning for UTI. 1 of 2 blood culture bottle positive for gram-positive cocci. EKG showed Afib with RVR, ventricular rate 139 bpm, nonspecific ST-T wave changes. CTA chest with large bilateral pleural effusions resulting in complete compressive atelectasis of both lower lobes with subsegmental atelectasis upper lobes. CT abdomen with cirrhosis, thickening of transitional epithelium in left upper collecting system creating 22 mm mass concerning for pyelonephritis versus transitional cell carcinoma. Also showed moderate congestive heart failure feat ures with moderate cardiomegaly, small pericardial effusion, large bilateral pleural effusion, subcutaneous edema. Diffuse wall thickening of urinary bladder unchanged likely secondary to chronic prostatism. Please see full report. 01/[address] more alert and coherent today. Bilateral lower leg swelling is improving, he reports she noted legs were getting worse for several weeks. He is diuresing well on IV Lasix, per nursing staff he had 4 L urine output past 24 hours. Leukocytosis has resolved. Initial blood culture positive for gram- positive cocci, repeat blood culture ordered today. Serum creatinine 1.4 . Echocardiogram completed this morning but report is pending. 02/01. Feels well. Urine output around 5.7 L yesterday, electrolytes and renal function stable. Will start him on scheduled potassium supplementation since its drifting down slowly. Will increase IV Lasix to 80 mg 3 times daily. Blood culture from 01/29 is presumptively positive for Streptococcus pneumonia, urine culture positive for gram-negative bacilli. Repeat blood culture from 01/31 team negative to date. 02/02 patient reports breathing is better, urine output around 4.2 L over past 24 hours, electrolytes stable, serum creatinine improved to 1.2 from 1.3 before. His weight is down to 102 kg from 113kg on admission, weight loss of around 24 pounds. He still has over 2+ peripheral edema. Echocardiogram is now available. EF 60-65%, right ventricle systolic function moderately reduced, b oth atria are moderately dilated, mild MR, moderate to severe tricuspid regurgitation. Estimated pulmonary artery pressure 57 mmHg. When compared to last echo dated 11/27/2021, right ventricle dysfunction is new and pulmonary pressure worse 02/03 Patient on 4 L nasal cannula overnight. Patient on 3 L at home typically. Patient has cough productive of yellow sputum. Shortness of breath present but improving. Patient complains of headache. Patient still quite edematous. Decreased urine output with last Lasix dose. We will add albumin to next dose. ESBL E. coli found and antibiotics changed to Merrem. Follow-up x-ray with dense consolidations by basilar. Small intermediate effusions. 02/04 Patient on BiPAP overnight. Has been on nasal cannula oxygen this morning 3L. Sitting up in chair doing well and eating breakfast. Follow-up ABG with good pH. He is hyperkalemic at 5.8. We will stop his home potassium patient is started. We will follow-up potassium later. Patient start ed on Lasix drip given his continued significant third spacing in the lower extremities. Diamox x1 for metabolic alkalosis. Renal function stable. 02/05 Patient on BiPAP overnight it sounds like he felt more comfortable with it on and thus it was placed. Patient sleeping with it on currently. Is awake. Discussed with him that we cannot send him on BiPAP so that we tonight we will see how he does without BiPAP. 02/06 Patient able to tolerate overnight without using BiPAP. Was on nasal cannula 3 L. Diuresis held for appear to be overdiuresis for couple days. May restart home diuretics today Pending follow-up chemistry. Still good urine output. 02/07 Patient has been stable on his 3 L doing well until last night when he had quickly gradually increasing respiratory distress and hypoxia. Chest x-ray with diffuse infiltrates worsened. Patient on 11 L high flow nasal cannula. 02/08: Patient agrees to proceed with thoracentesis. He is on BiPAP 14/7 FiO2 35%. Afebrile overnight. WBC 5.6 this morning. Repeat blood cultures no growth to date. He denies shortness of breath, chest pain, anxiety, cough, wheezing, fever, chills, or sweating at the moment. Proceed with thoracentesis today. Ativan 1mg IV once before the procedure. Continue BiPAP for now, will try to wean down/off afterward. Continue bronchodilators for COPD. Continue Meropenem for E coli UTI and pneumonia. Lasix 20mg IV BID and Lisinopril for CHF. Overall condition guarded. Stays in PCU. Physical therapy and occupational therapy evaluation and treatment. 02/09: Status post ultrasound thoracentesis of the left side yielding 1.5 L fluid. According to lights criteria, the fluid was transudative. Pleural fluid culture no growth today. Blood culture no growth today. Patient is currently on 2 L/min nasal cannula oxygen's. He is alert and oriented x3 today. Patient's blood pressure was guarded last night, and metoprolol, Lasix, and lisinopril were held. Patient has good urine output and he has about 75 cc/hr of urine output this morning. Continue supplemental oxygen therapy via nasal cannula. Restart metoprolol tartrate. Continue to hold Lasix and lisinopril for heart failure. Continue Pulmicort and DuoNeb for stable COPD. Continue meropenem for pneumonia. Consider removing Turner catheter tomorrow when scrotal edema comes down. Physical therapy evaluation and treatment for placement planning. Overall condition guarded. Stay in PCU today. Constitutional Vitals: Vital Signs Temp Pulse Resp BP Pulse Ox O2 Del Method O2 Flow Rate 36.9 C 88 22 102/61 95 Nasal Cannula 2 02/09/23 07:01 02/09/23 07:01 02/09/23 07:01 02/09/23 07:01 02/09/23 07:26 02/09/23 07:26 02/09/23 07:26 Period Temp Pulse Resp BP Sys/Murphy Pulse Ox O2 Del Method O2 Flow Rate Last 24 Hr 36.3 C-37.4 C 69-109 16-32 72-129/41-85 90-100 BiPAP-Nasal Cannula 2-8 Intake and Output 02/08/23 02/09/23 02/09/23 19:59 03:59 11:59 Intake Total 170 700 150 Output Total 320 300 120 Balance -150 400 30 Weight 100.607 kg Intake & Output: Intake & Output 02/08/23 02/09/23 02/09/23 19:59 03:59 11:59 Intake Total 170 700 150 Output Total 320 300 120 Balance -150 400 30 Weight 100.607 kg Intake: IV 50 550 50 Sodium Chloride 0.9% 500 ml @ 500 Wide Open IV BOLUS ONE Rx#: [id number] Merrem 1 gm In Sodium Chloride 50 50 50 0.9% 50 ml @ 100 mls/hr IV Q8H [facility] Rx#:[id number] Oral 120 150 100 Output: Urine Catheter Amount 320 300 120 Other: Meal Lunch Dinner Percent of Meal Consumed 75% 80 Feeding Ability Assist with Tray Set Up Urine Appearance Clear Clear Uretheral (Turner) Clear Urine Color Yellow Dark Yellow Pale Uretheral (Turner) Yellow Pale Urine Odor Normal Stool Size Large Stool Color Brown Yellow Stool Consistency Soft Loose # Bowel Movements 1 # of times incontinent of 1 Bowels Head Head exam: Present atraumatic and normal inspection Eye Eye exam: Present normal appearance ENT ENT exam: Present mucous membranes moist, normal exam and normal external ear exam Additional comments: Nasal cannula in place Neck Neck exam: Present normal inspection Respiratory Respiratory exam: Present decreased breath sounds and rhonchi Cardiovascular Cardiovascular exam: Present irregular rhythm and tachycardia GI/Abdominal GI/Abdominal exam: Present normal bowel sounds Additional comments: Scrotal edema Turner catheter in place Extremities Exam Additional comments: 3+ pitting edema bilateral lower extremities up to mid thigh Back Exam Back exam: Present normal inspection Neurological Exam Neurological exam: Present alert and oriented X3 Skin Skin exam: Present intact and warm OBJ DATA Labs 02/09/23 05:06 02/09/23 05:06 Labs: Abnormal Lab Results 0502/09/23 02/08/23 05:06 05:06 08:58 RBC 3.29 L Hgb 8.6 L Hct 29.0 L MCHC 29.7 L RDW 21.2 H Immature Gran % (Auto) 1.1 H Neut % (Auto) Lymph % (Auto) 7.6 L Lymph # (Auto) 0.41 L Immature Gran # 0.06 H PT 15.4 H INR 1.2 H APTT 38.3 H POC VBG pH POC VBG pCO2 at Temp POC VBG pO2 POC VBG HCO3 POC VBG Total CO2 POC Venous O2 Sat POC VBG Base Excess Carbon Dioxide 34 H Anion Gap 5.0 L BUN 32 H Creatinine Glucose Uric Acid Albumin 2.4 L Globulin 4.1 H Albumin/Globulin Ratio 0.6 L 02/08/23 02/08/23 02/08/23 05:53 05:53 04:28 RBC 3.40 L Hgb 8.9 L Hct 30.6 L MCHC 29.1 L RDW 21.5 H Immature Gran % (Auto) 1.1 H Neut % (Auto) 78.5 H Lymph % (Auto) 6.8 L Lymph # (Auto) 0.38 L Immature Gran # 0.06 H PT INR APTT POC VBG pH 7.52 H POC VBG pCO2 at Temp POC VBG pO2 87 H POC VBG HCO3 35.5 H POC VBG Total CO2 37.0 H POC Venous O2 Sat 97.0 H POC VBG Base Excess 13.0 H* Carbon Dioxide 37 H Anion Gap 5.0 L BUN 33 H Creatinine 1.4 H Glucose Uric Acid Albumin 2.4 L Globulin 4.5 H Albumin/Globulin Ratio 0.5 L 02/07/23 02/07/23 02/06/23 04:46 04:46 08:41 RBC Hgb Hct MCHC RDW Immature Gran % (Auto) Neut % (Auto) Lymph % (Auto) Lymph # (Auto) Immature Gran # PT INR APTT POC VBG pH POC VBG pCO2 at Temp 73.9 H* POC VBG pO2 50 H POC VBG HCO3 37.7 H POC VBG Total CO2 40.0 H POC Venous O2 Sat 80.0 H POC VBG Base Excess 12.0 H* Carbon Dioxide 35 H 37 H Anion Gap 7.0 L 5.0 L BUN 32 H 31 H Creatinine 1.5 H 1.4 H Glucose 114 H Uric Acid 11.1 H Albumin Globulin Albumin/Globulin Ratio Meds: Medications Acetaminophen (Acetaminophen 325 Mg Tablet) 650 mg PO Q6HP PRN; Protocol PRN Reason: Per Pain Protocol/Fever > 101 Last Admin: 02/06/23 14:54 Dose: 650 mg Hydrocodone Bitart/Acetaminophen (Hydrocodone/Apap 10/325mg Tablet) 1 tab PO Q8HP PRN; Protocol PRN Reason: Per Pain Protocol Last Admin: 02/06/23 21:37 Dose: 1 tab Albuterol/Ipratropium (Ipratropium/Albuterol 3 Ml Ampul.Neb) 3 ml NEB Q8H [facility] Last Admin: 02/09/23 04:09 Dose: Not Given Apixaban (Apixaban 5 Mg Tablet) 5 mg PO BID [facility] Last Admin: 02/08/23 20:43 Dose: 5 mg Bisacodyl (Bisacodyl 5 Mg Tablet) 10 mg PO DAILYP PRN PRN Reason: Constipation Budesonide (Budesonide 0.5 Mg/2 Ml Ampul.Neb) 0.5 mg NEB Q12 [facility] Last Admin: 02/08/23 19:45 Dose: 0.5 mg Diphenhydramine HCl (Diphenhydramine 50 Mg/Ml Vial) 25 mg IV Q6HP PRN PRN Reason: anxiety Last Admin: 02/06/23 23:36 Dose: 25 mg Docusate Sodium (Docusate Sodium 100 Mg Capsule) 100 mg PO BID [facility] Last Admin: 02/09/23 07:44 Dose: Not Given Meropenem 1 gm/ Sodium (Chloride) 50 mls @ 100 mls/hr IV Q8H [facility]; Protocol Last Infusion: 02/09/23 06:09 Dose: Infused Lactulose (Lactulose 20 Gm/30 Ml Oral.Gayatri) 10 gm PO DAILYP PRN PRN Reason: Constipation Metoprolol Tartrate (Metoprolol Tartrate 25 Mg Tablet) 25 mg PO BID [facility] Omeprazole (Omeprazole 20 Mg Capsule) 40 mg PO BIDAC [facility] Last Admin: 02/09/23 07:43 Dose: 40 mg Ondansetron HCl (Ondansetron 4 Mg/2 Ml Vial) 4 mg IV Q4HP PRN; Protocol PRN Reason: Nausea And Vomiting Last Admin: 02/04/23 09:18 Dose: 4 mg Ondansetron HCl (Ondansetron 4 Mg Odt Tablet) 4 mg SL Q4HP PRN; Protocol PRN Reason: Nausea And Vomiting Oxycodone HCl (Oxycodone Ir 5 Mg Tablet) 1 mg PO Q4HP PRN PRN Reason: Per Pain Protocol Senna (Sennosides 1 Tablet) 2 tab PO HSP PRN PRN Reason: Constipation Last Admin: 02/01/23 21:08 Dose: 2 tab Sodium Chloride (0.9 % Sodium Chloride 10 Ml Syringe) 10 ml IV Q8 [facility] Last Admin: 02/09/23 05:27 Dose: 10 ml Tamsulosin HCl (Tamsulosin 0.4 Mg Capsule) 0.4 mg PO QDAY [facility] Last Admin: 02/08/23 07:20 Dose: Not Given A/P Assessment and plan (1) Bilateral pneumonia: Status: Acute (2) Hypochromic microcytic anemia: Status: Acute (3) BPH (benign prostatic hyperplasia): Status: Acute (4) CKD (chronic kidney disease), stage III: Status: Acute (5) GERD (gastroesophageal reflux disease): Status: Acute (6) Atrial fibrillation with RVR: Status: Acute (7) COPD (chronic obstructive pulmonary disease): Status: Acute (8) Bacteremia due to Streptococcus pneumoniae: Status: Acute (9) UTI due to extended-spectrum beta lactamase (ESBL) producing Escherichia coli: Status: Acute (10) Acute exacerbation of CHF (congestive heart failure): Status: Acute (11) Acute hypercapnic respiratory failure: Status: Acute Narrative A/P Narrative: Assessment and Plans: 1. Bilateral pleural effusion associated with diastolic CHF: Stays in PCU Status post ultrasound thoracentesis of the left side yielding 1.5 L fluid. According to lights criteria, the fluid was transudative. Pleural fluid culture no growth today. Supplemental oxygen therapy, titrate to achieve spo2>88-92% COPD-er Hold Lasix Hold Lisinopril Resume Metoprolol tartrate 2000cc/day fluid restriction Will attempt to d/c Turner catheter tomorrow when scrotal edema comes down Physical therapy evaluation and treatment for placement planning 2. COPD: Pulmicort DUoNEB 3. Bilateral pneumonia: Meropenem cbc w/ auto diff in the morning to trend WBC Blood culture, no growth to date Sputum culture, no growth to date BiPAP, continue to wean down/off as tolerated 4. ESBL E coli UTI: Blood culture, no growth to date Urine culture, no growth to date cbc w/ auto diff in the morning to trend WBC Meropenem 5. Microcytic hypochromic anemia: cbc w/ auto diff in the morning to trend H/H 6. GERD: Prilosec 7. Chronic kidney disease III: Avoid nephrotoxic agents Saline lock 2000cc/day fluid restriction CMP in the morning to trend kidney functions 8. Atrial fibrillation RVR: Resume Metoprolol tartrate for rate control Eliquis as anticoagulation 9. Strep pneumoniae bacteremia: 09/22 bottle growth from initial culture, no growth in subsequent cultures DDx: Skin contamination Monitor repeat blood culture results cbc w/ auto diff in the morning to trend WBC Meropenem GI ppx: Prilosec DVT ppx: Eliquis Code status: Guarded Disposition: inpatient PCU Time Spent With Patient Time: Total time spent is greater than 50% in coordination of care (as documented) at patient's floor/unit and/or counseling patient: Subsequent: Total time with patient: 35 - 49 minutes QUALITY VTE Deep Vein Thrombosis/Pulmonary Embolism Present on Admission: No
[2023-02-09] MEDS: BUDESONIDE 0.5 MG/2 ML AMPUL.NEB NEB SCH ×2 (10:13→19:30)
[2023-02-09] MEDS ORDERED: IPRATROPIUM/ALBUTEROL 3 ML AMPUL.NEB NEB PRN (21:44)
[2023-02-10] MEDS: IPRATROPIUM/ALBUTEROL 3 ML AMPUL.NEB NEB SCH ×2 (03:15→10:25)
[2023-02-10] MEDS: 0.9 % SODIUM CHLORIDE 10 ML SYRINGE IV SCH (05:09)
[2023-02-10 06:45] LABS: Basophils # (Auto) 0.03 K/mcL (0.00-0.30); Basophils % (Auto) 0.6 % (0.0-2.0); Eosinophils % (Auto) 1.9 % (0.0-7.0); Hemoglobin 8.4 g/dL (13.7-17.5); Lymphocytes # (Auto) 0.46 K/mcL (1.50-4.80); Lymphocytes % (Auto) 8.7 % (15.5-49.0); Mean Cell Volume 94.8 fL (80.0-100.0); Mean Corpuscular HGB Conc 27.1 g/dL (31.0-36.0); Mean Platelet Volume 12.3 fL (8.8-12.5); Monocytes # (Auto) 0.69 K/mcL (0.10-0.90); Neutrophils % (Auto) 74.5 % (38.0-78.0); Platelet Count 212 K/mcL (140-440); RBC 3.27 M/mcL (4.63-6.08); Red Cell Distribution Width 21.5 % (11.5-14.5); WBC 5.3 K/mcL (4.5-11.0)
[2023-02-10 07:49] LABS: ALT/SGPT 6 U/L (<40); AST/SGOT 16 U/L (<40); Albumin 2.3 gm/dL (3.2-5.2); Albumin/Globulin Ratio 0.5 (1.0-2.3); Alkaline Phosphatase 105 U/L (39-117); Bilirubin,Total 0.4 mg/dL (0.1-1.0); Blood Urea Nitrogen 29 mg/dL (8-23); Calcium 9.1 mg/dL (8.6-10.4); Carbon Dioxide 31 mmol/L (22-30); Chloride 99 mmol/L (96-108); Globulin 4.4 gm/dL (2.2-3.7); Glomerular Filtration Rate 58; Glucose 95 mg/dL (70-105)
[2023-02-10] MEDS: DOCUSATE SODIUM 100 MG CAPSULE PO SCH (08:13)
[2023-02-10] MEDS: OMEPRAZOLE 20 MG CAPSULE PO SCH (08:13)
[2023-02-10] MEDS: TAMSULOSIN 0.4 MG CAPSULE PO SCH (08:13)
[2023-02-10] MEDS: METOPROLOL TARTRATE 25 MG TABLET PO SCH (08:13)
[2023-02-10] MEDS: APIXABAN 5 MG TABLET PO SCH (08:13)
--- NOTE | 2023-02-10 10:03 | Discharge Summary ---
Discharge Provider Provider IMPORTANT FOLLOW-UP INFORMATION FOR PCP: Patient information: Note initiated : 02/10/23 at 10:01 am Service Date, if different from initiated Date: [] Patient: Nakul Andrew 77 y/o M admitted on 01/30/23 for Shortness of Breath. Chief Complaint: [] Date of admission: 01/30/23 00:29 Discharge date: 02/10/23 Primary care physician: Georgi Waller PA-C Attending physician on admission: Tanner Jensen Consults: 01/30/23 Consult to Physician [CONS] Stat Comment: Consulting Provider: Tanner Jensen Reason For Exam: Physician to Consult Attending physician on discharge: Chi Marleen Pui COURSE Hospital Course Hospital course: Patient is a 77-year-old male with a history of CHF on torsemide, COPD on 2 L nasal cannula oxygen, CKD stage III, anemia presented with shortness of breath, anasarca, worsening peripheral edema. 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 Staff at assisted living are concerned about aspiration since patient was noted to be choking on his food. Patient states that he was short of breath prior to arrival, but states that with oxygen on he feels much better. He denies any symptoms at this time. On presentation he was in distress with respiratory rate of 29, he was hypoxic and was placed on BiPAP for work of breathing. CBC showed WBC of 16.4, hemoglobin 8.5. D-dimer 2.49 elevated, VBG showed pH 7.28, PCO2 71, HCO3 33. Cr 1.5 at baseline, elevated BNP of 15,000, negative troponin, equivocal procalcitonin 0.25. UA with presence of RBC, WBC, leukocyte esterase, many bacteria concerning for UTI. 1 of 2 blood culture bottle positive for gram-positive cocci. EKG showed Afib with RVR, ventricular rate 139 bpm, nonspecific ST-T wave changes. CTA chest with large bilateral pleural effusions resulting in complete compressive atelectasis of both lower lobes with subsegmental atelectasis upper lobes. CT abdomen with cirrhosis, thickening of transitional epithelium in left upper collecting system creating 22 mm mass concerning for pyelonephritis versus transitional cell carcinoma. Also showed moderate congestive heart failure features with moderate cardiomegaly, small pericardial effusion, large bilateral pleural effusion, subcutaneous edema. Diffuse wall thickening of urinary bladder unchanged likely secondary to chronic prostatism. Please see full report. 01/[address] more alert and coherent today. Bilateral lower leg swelling is improving, he reports she noted legs were getting worse for several weeks. He is diuresing well on IV Lasix, per nursing staff he had 4 L urine output past 24 hours. Leukocytosis has resolved. Initial blood culture positive for gram- positive cocci, repeat blood culture ordered today. Serum creatinine 1.4 . Echocardiogram completed this morning but report is pending. 02/01. Feels well. Urine output around 5.7 L yesterday, electrolytes and renal function stable. Will start him on scheduled potassium supplementation since its drifting down slowly. Will increase IV Lasix to 80 mg 3 times daily. Blood culture from 01/29 is presumptively positive for Streptococcus pneumonia, urine culture positive for gram-negative bacilli. Repeat blood culture from 01/31 team negative to date. 02/02 patient reports breathing is better, urine output around 4.2 L over past 24 hours, electrolytes stable, serum creatinine improved to 1.2 from 1.3 before. His weight is down to 102 kg from 113kg on admission, weight loss of around 24 pounds. He still has over 2+ peripheral edema. Echocardiogram is now available. EF 60-65%, right ventricle systolic function moderately reduced, both atria are moderately dilated, mild MR, moderate to severe tricuspid reg urgitation. Estimated pulmonary artery pressure 57 mmHg. When compared to last echo dated 11/27/2021, right ventricle dysfunction is new and pulmonary pressure worse 02/03 Patient on 4 L nasal cannula overnight. Patient on 3 L at home typically. Patient has cough productive of yellow sputum. Shortness of breath present but improving. Patient complains of headache. Patient still quite edematous. Decreased urine output with last Lasix dose. We will add albumin to next dose. ESBL E. coli found and antibiotics changed to Merrem. Follow-up x-ray with dense consolidations by basilar. Small intermediate effusions. 02/04 Patient on BiPAP overnight. Has been on nasal cannula oxygen this morning 3L. Sitting up in chair doing well and eating breakfast. Follow-up ABG with good pH. He is hyperkalemic at 5.8. We will stop his home potassium patient is started. We will follow-up potassium later. Patient started on Lasix drip given his continued significant third spacing in the lower extremities. Diamox x1 for metabolic alkalosis. Renal function stable. 02/05 Patient on BiPAP overnight it sounds like he felt more comfortable with it on and thus it was placed. Patient sleeping with it on currently. Is awake. Discussed with him that we cannot send him on BiPAP so that we tonight we will see how he does without BiPAP. 02/06 Patient able to tolerate overnight without using BiPAP. Was on nasal cannula 3 L. Diuresis held for appear to be overdiuresis for couple days. May restart home diuretics today Pending follow-up chemistry. Still good urine output. 02/07 Patient has been stable on his 3 L doing well until last night when he had quickly gradually increasing respiratory distress and hypoxia. Chest x-ray with diffuse infiltrates worsened. Patient on 11 L high flow nasal cannula. 02/08: Patient agrees to proceed with thoracentesis. He is on BiPAP 14/7 FiO2 35%. Afebrile overnight. WBC 5.6 this morning. Repeat blood cultures no growth to date. He denies shortness of breath, chest pain, anxiety, cough, wheezing, fever, chills, or sweating at the moment. Proceed with thoracentesis today. Ativan 1mg IV once before the procedure. Continue BiPAP for now, will try to wean down/off afterward. Continue bronchodilators for COPD. Continue Meropenem for E coli UTI and pneumonia. Lasix 20mg IV BID and Lisinopril for CHF. Overall condition guarded. Stays in PCU. Physical therapy and occupational therapy evaluation and treatment. 02/09: Status post ultrasound thoracentesis of the left side yielding 1.5 L fluid. According to lights criteria, the fluid was transudative. Pleural fluid culture no growth today. Blood culture no growth today. Patient is currently on 2 L/min nasal cannula oxygen's. He is alert and oriented x3 today. Patient's blood pressure was guarded last night, and metoprolol, Lasix, and lisinopril were held. Patient has good urine output and he has about 75 cc/hr of urine output this morning. Continue supplemental oxygen therapy via nasal cannula. Restart metoprolol tartrate. Continue to hold Lasix and lisinopril for heart failure. Continue Pulmicort and DuoNeb for stable COPD. Continue meropenem for pneumonia. Consider removing Turner catheter tomorrow when scrotal edema comes down. Physical therapy evaluation and treatment for placement planning. Overall condition guarded. Stay in PCU today. 02/10: Patient has reached clinical stability. Oxygen requirement back to the baseline. Decision made to discharge patient back to SNF. Follow-up with SNF MD in 1 week. All questions answered prior to patient being physically discharged. Discharge diagnosis: CHF exacerbation, pneumonia, UTI Time Spent with Patient Time attestation: Total time spent providing and/or coordinating discharge services: Time spent: Greater than 30 minutes EXAM Constitutional Vitals: Temp Pulse Resp BP Pulse Ox O2 Del Method O2 Flow Rate 37.1 C 92 H 26 H 113/90 94 High Flow Nasal Cannula, Bubble Humidifier 1.5 02/10/23 08:01 02/10/23 08:00 02/10/23 07:55 02/10/23 08:00 02/10/23 08:01 02/10/23 08:00 02/10/23 08:00 General appearance: cooperative and no acute distress Head Head exam: Present atraumatic and normocephalic Eye Eye exam: Present EOMI and PERRL ENT ENT exam: Present mucous membranes moist, normal exam and normal external ear exam Additional comments: Nasal cannula in place Neck Neck exam: Present normal inspection; Absent lymphadenopathy, tenderness or thyromegaly Respiratory Respiratory exam: Present decreased breath sounds; Absent accessory muscle use, respiratory distress or wheezes Cardiovascular Cardiovascular exam: Present irregular rhythm; Absent JVD GI/Abdominal GI/Abdominal exam: Present normal bowel sounds and soft; Absent organomegaly or tenderness Rectal Rectal exam: Present deferred Extremities Exam Extremities exam: Present full ROM, normal capillary refill and normal inspection; Absent tenderness Neurological Exam Neurological exam: Present alert, CN II-XII intact and oriented X3; Absent motor sensory deficit Psychiatric Psychiatric exam: Present normal affect and normal mood; Absent anxious or depr essed Skin Skin exam: Present dry and intact Discharge Data Data Completed and Pending Labs on day of discharge: Labs from last 24 hours 02/10/23 02/10/23 05:00 05:00 WBC 5.3 RBC 3.27 L Hgb 8.4 L Hct 31.0 L MCV 94.8 MCH 25.7 L MCHC 27.1 L RDW 21.5 H Plt Count 212 MPV 12.3 Immature Gran % (Auto) 1.3 H Neut % (Auto) 74.5 Lymph % (Auto) 8.7 L [place] % (Auto) 13.0 H Eos % (Auto) 1.9 Baso % (Auto) 0.6 Lymph # (Auto) 0.46 L [place] # (Auto) 0.69 Eos # (Auto) 0.10 Baso # (Auto) 0.03 Immature Gran # 0.07 H Absolute Neutrophils 3.94 Sodium 138 Potassium 4.5 Chloride 99 Carbon Dioxide 31 H Anion Gap 8.0 BUN 29 H Creatinine 1.2 GFR Calculation 58 Glucose 95 Calcium 9.1 Total Bilirubin 0.4 AST 16 ALT 6 Alkaline Phosphatase 105 Total Protein 6.7 Albumin 2.3 L Globulin 4.4 H Albumin/Globulin Ratio 0.5 L Preliminary micro results at discharge 02/08/23 13:45 Gram Stain - Preliminary Pleural Fluid Body Fluid Culture - Preliminary Discharge Plan Patient/Caregiver Discharge Instructions Activity: resume usual activities as tolerated Diet: Dysphagia Level 6 Soft & Bite-Sized Foods Prescriptions: New Eliquis 5 mg tablet 5 mg PO BID Qty: 60 0RF lisinopril 2.5 mg tablet 2.5 mg PO QDAY Qty: 30 0RF Continued albuterol sulfate [ProAir HFA] 90 mcg/actuation Hfa Aerosol Inhaler 2 puff INHALATION QID PRN (Reason: Shortness Of Breath) tamsulosin [Flomax] 0.4 mg Capsule 0.4 mg PO QDAY magnesium hydroxide [Milk of Magnesia] 400 mg/5 mL Suspension 30 ml PO QDAY PRN (Reason: constipation) Fleet Enema 19-7 gram/118 mL Enema 118 ml AK PRN PRN (Reason: Constipation) metoprolol tartrate 25 mg Tablet 25 mg PO BID potassium chloride 20 mEq Tablet Extended Release 10 meq PO QDAY omeprazole 20 mg tablet 40 mg PO BID torsemide 20 mg tablet 20 mg PO BID oxycodone 5 mg tablet 5 mg PO Q4HP PRN (Reason: pain) aspirin 81 mg Tablet 81 mg PO QDAY hydrocodone-acetaminophen 10-325 mg Tablet 1 tab PO Q8H PRN (Reason: Pain) Qty: 20 0RF Follow Up Plan Follow up with: Georgi Waller PA-C [Primary Care Provider] - Patient Disposition: Xfer SNF Prognosis: Fair Rehab Potential: Fair I certify that the patient requires SNF services: Yes Overall status at discharge: patient is back to baseline Discharge Orders: Discharge Order (Routine); Ordered 02/10/23 Ordered By: Vishnu RAMIREZ VTE Deep Vein Thrombosis/Pulmonary Embolism Present on Admission: No
[2023-02-10] MEDS: BUDESONIDE 0.5 MG/2 ML AMPUL.NEB NEB SCH (10:30)
== END 2023-02-10 12:17 | DRG 291 ==
LOC: ED 16:24 → ICU 01-30 00:48
PROVIDERS: ADMIT Internal Medicine; ATTEND Internal Medicine